=== PATIENT | female | born 1995 | race Hispanic/Latino ===

== ENCOUNTER 2019-04-07 09:59 | Emergency (ER) | payer OTHER ==
[~2019-04-07] VITALS: Ht 162.6 cm; Wt 76.2 kg
--- OUTSIDE RECORDS SUMMARY | 2019-04-07 10:01 | XMS REPORT ---
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 Allergies, Adverse Reactions, Alerts Allergy Name Allergy Type Status Severity Reaction(s) Onset Date Inactive Date Treating Clinician Comments No Known Allergies DA Active U 2019-01-30 00:00:00 No Known Allergies DA Active U 2017-07-15 00:00:00 Medications This patient has no known medications. Encounters Start Date/Time End Date/Time Encounter Type Admission Type Attending Clinicians Care Facility Care Department Encounter ID 2019-04-01 19:29:00 2019-04-01 19:29:00 Emergency E [facility] [id number] 2019-02-04 19:34:00 2019-02-04 19:34:00 Emergency E [facility] 7509 2019-02-01 18:30:00 2019-02-01 18:30:00 Emergency E [facility] 7508 2019-01-14 19:49:00 2019-01-14 19:49:00 Emergency E [facility] 7507 Results Test Description Test Time Test Comments Text Results Atomic Results Result Comments BASIC METABOLIC PANEL 2019-04-01 00:47:00 SODIUM (test code=NA) 141 mEq/L 134-147 POTASSIUM (test code=K) 3.9 mEq/L 3.4-5.0 CHLORIDE (test code=CL) 108 mEq/L 100-108 CARBON DIOXIDE (test code=CO2) 22 mEq/L 21-33 ANION GAP (test code=GAP) 15 0-20 GLUCOSE (test code=GLU) 110 mg/dL 70-110 BLOOD UREA NITROGEN (test code=BUN) 22 mg/dL 7-18 GLOMERULAR FILTRATION RATE (test code=GFR) 61.0 110-120 Units of measure=ml/min/1.73 m2 CREATININE (test code=CREAT) 1.1 mg/dL 0.6-1.3 CALCIUM (test code=CA) 9.3 mg/dL 8.0-10.5 BASIC METABOLIC [id number] 00:44:00* Test Item Value Reference Range Comments SODIUM (test code=NA) 141 mEq/L 134-147 POTASSIUM (test code=K) 3.9 mEq/L 3.4-5.0 CHLORIDE (test code=CL) 108 mEq/L 100-108 CARBON DIOXIDE (test code=CO2) 22 mEq/L 21-33 ANION GAP (test code=GAP) 15 0-20 GLUCOSE (test code=GLU) 110 mg/dL 70-110 BLOOD UREA NITROGEN (test code=BUN) 22 mg/dL 7-18 GLOMERULAR FILTRATION RATE (test code=GFR) 110-120 CREATININE (test code=CREAT) mg/dL 0.6-1.3 CALCIUM (test code=CA) 9.3 mg/dL 8.0-10.5 UA RFLX MICR CULT IF [id number] 00:42:00* Test Item Value Reference Range Comments UA COLOR (test code=COLU) YELLOW YEL/STRAW UA APPEARANCE (test code=APPU) SL CLOUDY CLEAR UA GLUCOSE DIPSTICK (test code=DGLUU) NEGATIVE NEGATIVE UA BILIRUBIN DIPSTICK (test code=BILU) NEGATIVE NEGATIVE UA KETONE DIPSTICK (test code=KETU) NEGATIVE NEGATIVE UA SPECIFIC GRAVITY (test code=SGU) 1.014 1.005-1.030 UA BLOOD DIPSTICK (test code=ANUEL) 3+ NEGATIVE UA PH DIPSTICK (test code=WOODROW) 7.0 5.0-7.0 UA PROTEIN DIPSTICK (test code=PROU) NEGATIVE NEGATIVE UA UROBILINIOGEN DIPSTICK (test code=URO) 0.2 mg/dL 0.2-1.0 UA NITRITE DIPSTICK (test code=MAG) NEGATIVE NEGATIVE UA LEUKOCYTE ESTERASE DIPSTICK (test code=LEUU) 3+ NEGATIVE UA WBC (test code=WBCU) 21-50 WBC/HPF 0-3 UA RBC (test code=RBCU) >50 RBC/HPF 0-3 UA WBC NO REFLEX (test code=WBCUCL) 21-50 WBC/HPF 0-3 UA BACTERIA (test code=BACU) 3+ /HPF NONE SEEN UA SQUAMOUS CELLS (test code=SQU) 11-25 /HPF NONE SEEN UA MUCUS (test code=MUCU) 1+ /LPF NONE SEEN Indication for culture: Flank PainSpecimen Description: CLEAN CATCHUR HCG [id number] 00:41:00* Test Item Value Reference Range Comments UR HCG QUAL (test code=HCGQLU) NEGATIVE NEGATIVE TROPONIN-I [id number] 00:38:00* Test Item Value Reference Range Comments TROPONIN-I RAPID (test code=TROPIRAP) 0.00 ng/mL 0.00-0.08 Performed by certified brim welt sewing machine operator at [facility] Negative: <=0.08 Positive: >=0.09An elevated troponin value alone is not sufficient todiagnose a myocardial infarction. Rather, the patient sclinical presentation (history, physical exam) and ECGshould be used in conjunction with troponin in thediagnostic evaluation of suspected myocardial infarction. Aserial sampling protocol is recommended to facilitate the identification of temporal changes in troponin levels characteristic of [place]. CBC W/AUTO [id number] 00:36:00* Test Item Value Reference Range Comments WHITE BLOOD CELL (test code=WBC) 7.95 x10 3/uL 4.5-11.0 RED BLOOD CELL (test code=RBC) 4.36 x10 6/uL 3.54-5.02 HEMOGLOBIN (test code=HGB) 13.7 g/dL 11.0-15.0 HEMATOCRIT (test code=HCT) 41.8 % 33.0-45.0 MEAN CELL VOLUME (test code=MCV) 95.9 fL 81.0-99.0 MEAN CELL HGB (test code=MCH) 31.4 pg 27.0-33.0 MEAN CELL HGB CONCETRATION (test code=MCHC) 32.8 g/dL 33.0-37.0 RED CELL DISTRIBUTION WIDTH CV (test code=RDW) 11.9 % 11.5-14.5 RED CELL DISTRIBUTION WIDTH SD (test code=RDW-SD) 41.4 fL 37.0-54.0 PLATELET COUNT (test code=PLT) 214 x10 3/uL 150-400 MEAN PLATELET VOLUME (test code=MPV) 12.2 fL 7.0-9.0 NEUTROPHIL % (test code=NT%) 62.5 % 56.0-77.0 IMMATURE GRANULOCYTE % (test code=IG%) 0.3 % 0.0-2.0 LYMPHOCYTE % (test code=LY%) 26.9 % 14.0-32.0 MONOCYTE % (test code=MO%) 9.1 % 4.8-9.0 EOSINOPHIL % (test code=EO%) 0.8 % 0.3-3.7 BASOPHIL % (test code=BA%) 0.4 % 0.0-2.0 NUCLEATED RBC % (test code=NRBC%) 0.0 % 0-0 NEUTROPHIL # (test code=NT#) 4.98 x10 3/uL 2.0-7.6 IMMATURE GRANULOCYTE # (test code=IG#) 0.02 x10 3/uL 0.00-0.03 LYMPHOCYTE # (test code=LY#) 2.14 x10 3/uL 1.0-3.8 MONOCYTE # (test code=MO#) 0.72 x10 3/uL 0.1-0.8 EOSINOPHIL # (test code=EO#) 0.06 x10 3/uL 0.0-0.2 BASOPHIL # (test code=BA#) 0.03 x10 3/uL 0.0-0.2 NUCLEATED RBC # (test code=NRBC#) 0.00 x10 3/uL 0.0-0.1 MANUAL DIFF REQUIRED (test code=MDIFF) NO - XR CHEST 1 [id number] 23:47:00 FAX: Germán Maddox DO [phone] [place]: St: [facility] FAX: Smooth Grant NP [phone] Name: CAROLINE SONG [facility] [place] : 1995 Age/S: 24/F [address] [place] [address] Bl Unit #: [id number] Loc: [place] [address] Phys: Smooth Grant NP Acct: [id number] Dis Date: Status: REG ER PHONE #: [phone] Exam Date: 03/31/2019 2337 FAX #: [phone] Reason: SOB, CP EXAMS: CPT CODE: [id number] XR CHEST 1 V 78973 FRONTAL CHEST, 03/31/2019 11:12 PM : HISTORY: SOB, CP. COMPARISON: 06/10/2018 FINDINGS: Heart size and vascularity are within normal limits. The lungs are clear of focal consolidation. No effusion, pneumothorax, or acute osseous abnormality. IMPRESSION: 1. No radiographic evidence of acute cardiopulmonary process. SL: VITO at 5693 Reported and signed by: Ralph Shah M.D. CC: Germán Arreguin DO; Smooth Grant NP Technologist: RT Estrella(Emily) Trnscrd Date/Time/By: 03/31/2019 (2907) : By: [email or web address] Orig Print D/T: S: 03/31/2019 (3851) PAGE 1 Signed Report - HEPA IMAG INCL GB W [id number] 13:25:00 FAX: Germán Maddox DO [phone] [place]: B St: REG Name: CAROLINE LANIER [facility] : [birth year] Age/S: 23/F [address] Unit #: [id number] Loc: [place] [address] Phys: Germán Arreguin DO Acct: [id number] Dis Date: Status: REG CLI PHONE #: [phone] Exam Date: 02/03/2019 1234 FAX #: [phone] Reason: R10.9 EXAMS: CPT CODE: [id number] HEPA IMAG INCL GB W PHA 24847 HISTORY: R 10.9. COM PARISON: January 30, 2019. HIDA scan: 4.5 mCi of technetium 99m: Tach and 1.8 mcg of CCK. Sequential images obtained. Homogen eous uptake within the liver. Excretion into the biliary system as well as into the gallbladder and small bowel. Ejection fraction calculated to 80% at 19 1/2 minutes. The normal should be greater than 35% IMPRESSION: Normal ejection fraction of 83% at 19 1/2 minutes. at 1322 Reported and signed by: Isiah Tian M.D. CC: Germán Arreguin DO Tech nologist: Veronique Holder RT(N) Trnscrd Date/Ti me/By: 02/03/2019 (4139) : By: [email or web address] Orig Print D/T: S: 02/03/2019 (3230) PAGE 1 Signed Report URINALYSIS [id number] 20:01:00* Test Item Value Reference Range Comments UA COLOR (test code=COLU) Light-Yellow YELLOW UA APPEARANCE (test code=APPU) CLEAR CLEAR UA GLUCOSE DIPSTICK (test code=DGLUU) NEGATIVE mg/dL NEGATIVE UA BILIRUBIN DIPSTICK (test code=BILU) NEGATIVE mg/dL NEGATIVE UA KETONE DIPSTICK (test code=KETU) NEGATIVE mg/dL NEGATIVE UA SPECIFIC GRAVITY (test code=SGU) 1.015 1.001-1.035 UA BLOOD DIPSTICK (test code=ANUEL) Negative mg/dL NEGATIVE UA PH DIPSTICK (test code=WOODROW) 8.0 5.0-8.0 UA PROTEIN DIPSTICK (test code=PROU) NEGATIVE mg/dL NEGATIVE UA UROBILINIOGEN DIPSTICK (test code=URO) Normal mg/dL NEGATIVE UA NITRITE DIPSTICK (test code=MAG) NEGATIVE NEGATIVE UA LEUKOCYTE ESTERASE W REFLEX (test code=LEUUR) NEGATIVE Radha/uL NEGATIVE UA WBC (test code=WBCU) 6-10 per HPF 0-5 UA RBC (test code=RBCU) 3-5 #/HPF 0-5 UA EPITHELIAL CELLS (test code=EPIU) FEW per HPF FEW UA BACTERIA (test code=BACU) FEW #/HPF NONE UA MUCUS (test code=MUCU) FEW #/LPF FEW Urine Source? Clean CatchURINALYSIS [id number] 19:57:00* Test Item Value Reference Range Comments UA COLOR (test code=COLU) Light-Yellow YELLOW UA APPEARANCE (test code=APPU) CLEAR CLEAR UA GLUCOSE DIPSTICK (test code=DGLUU) NEGATIVE mg/dL NEGATIVE UA BILIRUBIN DIPSTICK (test code=BILU) NEGATIVE mg/dL NEGATIVE UA KETONE DIPSTICK (test code=KETU) NEGATIVE mg/dL NEGATIVE UA SPECIFIC GRAVITY (test code=SGU) 1.015 1.001-1.035 UA BLOOD DIPSTICK (test code=ANUEL) Negative mg/dL NEGATIVE UA PH DIPSTICK (test code=WOODROW) 8.0 5.0-8.0 UA PROTEIN DIPSTICK (test code=PROU) NEGATIVE mg/dL NEGATIVE UA UROBILINIOGEN DIPSTICK (test code=URO) Normal mg/dL NEGATIVE UA NITRITE DIPSTICK (test code=MAG) NEGATIVE NEGATIVE UA LEUKOCYTE ESTERASE W REFLEX (test code=LEUUR) NEGATIVE Radha/uL NEGATIVE UA WBC (test code=WBCU) per HPF 0-5 UA RBC (test code=RBCU) per HPF 0-5 UA EPITHELIAL CELLS (test code=EPIU) per HPF Few UA BACTERIA (test code=BACU) per HPF NONE Urine Source? Clean Catch- CT ABD PELVIS W/O [id number] 18:06:00 Name: CAROLINE SONG [facility] : 1995 Age/S: 23 / F [address] Unit #: [id number] Loc: [place] [address] Phys: SalasEvan dane Opal [employer] Acct: [id number] Di s Date: Status: REG ER PHONE #: [phone] Exam Date: 01/30/20191732 FAX #: Reason: FLANK PAIN EXAMS: CPT CODE: [id number] CT ABD PELVIS W/O CONT 39578 HISTORY: Flank pain. COMPARISON: CT scan from November 30, 2018. CT abdomen and pe lvis: Stone protocol. Automated exposure control CT of abdomen: The lung bases are clear. The liver is diffusely fatty infiltrated. No discrete parenchymal mass or nodules. The liver measuring 21.2 cm in length. Gallbladder is without radiopaque stones. Unremarkable spleen. The stomach is distended incompletely and it is wit hin normal limits. Noncontrast pancreas and adrenals are normal. Kidneys are free from hydroureteronephrosis. Multiple bilateral calyceal stones measuring 3 to 4 mm, greater on the right. No p athologic adenopathy. No bowel obstruction or colitis or diverticu litis or enteritis is noted. CT PELVIS: Append ix is normal. Pelvic bowel loops are unobstructed. Unremarkable ur inary bladder. Patient is post hysterectomy. No free fluid or free air. No pelvic pathologic adenopathy. The subcutaneous tissues and the mu sculature are normal in appearance. No lytic or blastic lesions are noted within the bony skeleton. Bone islands. IMPRESSION: No acute intra-abdominal or intrapelvic pathology with bilateral nonobstructing innumerable calyceal stones measuring 3 to 4 mm, gre ater on the right. This pattern is unchanged. PAGE 1 Signed Report (CONTINUED) Name: CAROLINE SONG [facility] : 1995 Age/S: 23 / F [address] [facility] Unit #: [id number] Loc: [place] [address] Phys: SalasJohnathan SUPERVIS[employer] Acct: [id number] Dis Date: Status: REG ER PHONE #: [phone] Exam Date: 2018 FAX #: [phone] Reason: FLANK PAIN EXAMS: CPT CODE: [id number] CT ABD PELVIS W/O CONT 01157 <Continued> at 1806 Reported and signed by: Isiah Tian M.D. CC: Germán Arreguin DO; Johnathan Marina NP Technologist:Edith Shin RT(R),CT; CTDI: DLP: Trnscb Date/Time: 01/30/2019 (180) [email or web address] Orig Print D/T: S: 01/30/2019 (647) PAGE 2 Signed Report BASIC METABOLIC [id number] 17:11:00* Test Item Value Reference Range Comments SODIUM (test code=NA) 142 mmol/L 136-145 POTASSIUM (test code=K) 4.0 mmol/L 3.5-5.1 CHLORIDE (test code=CL) 111.0 mmol/L 98-107 CARBON DIOXIDE (test code=CO2) 23.0 mmol/L 21-32 ANION GAP (test code=GAP) 12.0 10-20 GLUCOSE (test code=GLU) 102 mg/dL 74-106 BLOOD UREA NITROGEN (test code=BUN) 9 mg/dL 7-18 GLOMERULAR FILTRATION RATE (test code=GFR) > 60 mL/min >=60 Estimated GFR by using Modified MDRD formula.Chronic kidney disease is defined as either kidney damageor GFR <60 mL/min/1.73 m2 for >3 months. CREATININE (test code=CREAT) 0.90 mg/dL 0.55-1.02 Note change in reference range due to change in reagent. BUN/CREATININE RATIO (test code=BUN/CREA) 10.4 10-20 CALCIUM (test code=CA) 9.6 mg/dL 8.5-10.1 HEPATIC FUNCTION [id number] 17:11:00* Test Item Value Reference Range Comments TOTAL PROTEIN (test code=PROT) 7.4 gram/dL 6.4-8.2 ALBUMIN (test code=ALB) 3.8 g/dL 3.4-5.0 GLOBULIN (test code=GLOB) 3.6 gram/dL 2.7-4.2 ALBUMIN/GLOBULIN RATIO (test code=A/G) 1.1 0.75-1.50 BILIRUBIN TOTAL (test code=BILT) 0.30 mg/dL 0.0-1.0 BILIRUBIN DIRECT (test code=BILD) 0.10 mg/dL 0.0-0.20 SGOT/AST (test code=AST) 42 IUnit/L 15-37 SGPT/ALT (test code=ALT) 121 IUnit/L 12-78 ALKALINE PHOSPHATASE TOTAL (test code=ALKP) 85 IUnit/L 45-117 Note change in reference range due to change in reagent. [id number] 17:11:00* Test Item Value Reference Range Comments LIPASE (test code=LIP) 70 U/L 73.0-393.0 HCG SERUM [id number] 17:11:00* Test Item Value Reference Range Comments HCG SERUM QUAL (test code=HCGQL) NEGATIVE NEGATIVE This HCGQL test is NOT applicable for MALE patients.Check with nurse about probable order error.If Tumor Marker Test needed, nurse should order test "HCGTU"(Test #550.78515) BASIC METABOLIC [id number] 17:06:00* Test Item Value Reference Range Comments SODIUM (test code=NA) 142 mmol/L 136-145 POTASSIUM (test code=K) 4.0 mmol/L 3.5-5.1 CHLORIDE (test code=CL) 111.0 mmol/L 98-107 CARBON DIOXIDE (test code=CO2) mmol/L 21-32 ANION GAP (test code=GAP) 10-20 GLUCOSE (test code=GLU) mg/dL 74-106 BLOOD UREA NITROGEN (test code=BUN) mg/dL 7-18 GLOMERULAR FILTRATION RATE (test code=GFR) mL/min >=60 CREATININE (test code=CREAT) mg/dL 0.55-1.02 BUN/CREATININE RATIO (test code=BUN/CREA) 10-20 CALCIUM (test code=CA) mg/dL 8.5-10.1 HEPATIC FUNCTION [id number] 17:06:00* Test Item Value Reference Range Comments TOTAL PROTEIN (test code=PROT) gram/dL 6.4-8.2 ALBUMIN (test code=ALB) g/dL 3.4-5.0 GLOBULIN (test code=GLOB) gram/dL 2.7-4.2 ALBUMIN/GLOBULIN RATIO (test code=A/G) 0.75-1.50 BILIRUBIN TOTAL (test code=BILT) mg/dL 0.0-1.0 BILIRUBIN DIRECT (test code=BILD) mg/dL 0.0-0.20 SGOT/AST (test code=AST) IUnit/L 15-37 SGPT/ALT (test code=ALT) IUnit/L 12-78 ALKALINE PHOSPHATASE TOTAL (test code=ALKP) IUnit/L 45-117 [id number] 17:06:00* Test Item Value Reference Range Comments LIPASE (test code=LIP) U/L 73.0-393.0 HCG SERUM [id number] 17:06:00* Test Item Value Reference Range Comments HCG SERUM QUAL (test code=HCGQL) NEGATIVE NEGATIVE This HCGQL test is NOT applicable for MALE patients.Check with nurse about probable order error.If Tumor Marker Test needed, nurse should order test "HCGTU"(Test #550.23996) BASIC METABOLIC [id number] 16:59:00* Test Item Value Reference Range Comments SODIUM (test code=NA) 142 mmol/L 136-145 POTASSIUM (test code=K) 4.0 mmol/L 3.5-5.1 CHLORIDE (test code=CL) 111.0 mmol/L 98-107 CARBON DIOXIDE (test code=CO2) mmol/L 21-32 ANION GAP (test code=GAP) 10-20 GLUCOSE (test code=GLU) mg/dL 74-106 BLOOD UREA NITROGEN (test code=BUN) mg/dL 7-18 GLOMERULAR FILTRATION RATE (test code=GFR) mL/min >=60 CREATININE (test code=CREAT) mg/dL 0.55-1.02 BUN/CREATININE RATIO (test code=BUN/CREA) 10-20 CALCIUM (test code=CA) mg/dL 8.5-10.1 HEPATIC FUNCTION [id number] 16:59:00* Test Item Value Reference Range Comments TOTAL PROTEIN (test code=PROT) gram/dL 6.4-8.2 ALBUMIN (test code=ALB) g/dL 3.4-5.0 GLOBULIN (test code=GLOB) gram/dL 2.7-4.2 ALBUMIN/GLOBULIN RATIO (test code=A/G) 0.75-1.50 BILIRUBIN TOTAL (test code=BILT) mg/dL 0.0-1.0 BILIRUBIN DIRECT (test code=BILD) mg/dL 0.0-0.20 SGOT/AST (test code=AST) IUnit/L 15-37 SGPT/ALT (test code=ALT) IUnit/L 12-78 ALKALINE PHOSPHATASE TOTAL (test code=ALKP) IUnit/L 45-117 [id number] 16:59:00* Test Item Value Reference Range Comments LIPASE (test code=LIP) U/L 73.0-393.0 HCG SERUM [id number] 16:59:00* Test Item Value Reference Range Comments HCG SERUM QUAL (test code=HCGQL) NEGATIVE CBC W/O [id number] 16:45:00* Test Item Value Reference Range Comments WHITE BLOOD CELL (test code=WBC) 6.2 K/mm3 4.5-12.5 RED BLOOD CELL (test code=RBC) 4.21 mill/mm3 3.7-5.2 HEMOGLOBIN (test code=HGB) 12.9 gram/dL 11.5-15.5 HEMATOCRIT (test code=HCT) 38.5 % 36.0-46.0 MEAN CELL VOLUME (test code=MCV) 91.4 fL 80-98 MEAN CELL HGB (test code=MCH) 30.6 picogram 27.0-33.0 MEAN CELL HGB CONCETRATION (test code=MCHC) 33.5 gram/dL 33.0-36.0 RED CELL DISTRIBUTION WIDTH (test code=RDW) 12.1 % 11.6-16.2 PLATELET COUNT (test code=PLT) 213 K/mm3 150-450 MEAN PLATELET VOLUME (test code=MPV) 11.0 fL 6.7-11.0 CBC W/O [id number] 16:44:00* Test Item Value Reference Range Comments WHITE BLOOD CELL (test code=WBC) K/mm3 4.5-12.5 RED BLOOD CELL (test code=RBC) mill/mm3 3.7-5.2 HEMOGLOBIN (test code=HGB) 12.9 gram/dL 11.5-15.5 HEMATOCRIT (test code=HCT) 38.5 % 36.0-46.0 MEAN CELL VOLUME (test code=MCV) fL 80-98 MEAN CELL HGB (test code=MCH) picogram 27.0-33.0 MEAN CELL HGB CONCETRATION (test code=MCHC) gram/dL 33.0-36.0 RED CELL DISTRIBUTION WIDTH (test code=RDW) % 11.6-16.2 PLATELET COUNT (test code=PLT) K/mm3 150-450 MEAN PLATELET VOLUME (test code=MPV) fL 6.7-11.0 - US ABDOMEN [id number] 01:05:00 Name: CAROLINE SONG [facility] : 1995 Age/S: 23 / F [address] [place] [address] Unit #: [id number] Loc: [facility] [place] [address] Phys: Shashi Norris MD Acct: [id number] Dis Date: Status: REG ER PHONE #: [phone] Exam Date: 01/03/2019 0026 FAX #: [phone] Reason: abdominal pain EXAMS: CPT CODE: [id number] US ABDOMEN COMPLETE 96643 PROCEDURE: ABDOMINAL ULTRASOUND DATED 01/03/2019 INDICATION: Acute generalized abdominal pain. COMPARISON: CT abdomen dated 11/30/2018 TECHNIQUE: Sonographic evaluation of the abdomen was performed with supplemental color and pulsed Doppler. FINDINGS: LIVER: The liver demonstrates increased parenchymal echotexture with diminished sound transmission, likely due to fatty infiltration. GALLBLADDER: The gallbladder is normally distended without evidence of gallstones. There is no evidence of gallbladder wall thickening or pericholecystic fluid to suggest acute inflammation. The sonographic Rosales's sign was reported as negative. BILE DUCTS: The common duct is normal in caliber measuring 4.5 mm. PANCREAS: The visualized portions of the pancreas appear sonographically normal SPLEEN: The spleen appears normal in size (11.4 cm) and echotexture. KIDNEYS: The right kidney measures 11.7 cm lo ngitudinally and the left kidney measures 11.3 cm. The kidneys maintain n ormal cortical thickness and normal cortical echotexture. There is no aixa dence of acute collecting system obstruction. Bilateral renal stones are noted. AORTA AND INFERIOR VENA CAVA: Flow is documented in the inf erior vena cava. The proximal abdominal aorta is normal in caliber. Additional comments: No free intraperitoneal fluid is identified. IMPRESSION: 1. No sonographic evidence of cholelithiasis or acute cholecystitis. 2. Fatty infiltration of the liver. 3. B ilateral nephrolithiasis. SL: 131 PAGE 1 Signed Report (CONTINUED) Name: Thai SONG [facility] : 1995 Age/ S: 23 / [address] [place] [address] Unit #: [id number] Loc: [place] [address] Phys: Shashi Norris MD Acct: [id number] Dis Date: Status: REG ER PHONE #: [phone] Exam Date: 01/03/201925 FAX #: [phone] Reason: abdominal pain EXAMS: CPT CODE: [id number] US ABDOMEN COMPLETE 57586 <Continued> at 0105 Reported and signed by: José Inman M.D. CC: Germán Arreguin DO; Shashi Norris MD Technologist: Maricel Blackmon RDMS(A) Trnscb Date/Time: 01/04/2019 (104) t.JAVED Orig Print D/T: S: 01/04/2019 (107) Probe: PAGE 2 Signed Report - DUP AO/IVC/IV/BPG [id number] 01:05:00 Name: CAROLINE SONG [facility] : 1995 Age/S: 23 / F [address] [place] [address] Unit #: [id number] Loc: [place] [address] Phys: Shashi Norris MD Acct: [id number] Dis Date: Status: REG ER PHONE #: [phone] Exam Date: 01/03/201925 FAX #: [phone] Reason: ABDOMINAL PAIN EXAMS: CPT CODE: [id number] DUP AO/IVC/IV/BPG LTD 36709 PROCEDURE: ABDOMINAL ULTRASOUND DATED 01/03/2019 INDICATION: Acute generalized abdominal pain. COMPARISON: CT abdomen dated 11/30/2018 TECHNIQUE: Sonographic evaluation of the abdomen was performed with supplemental color and pulsed Doppler. FINDINGS: LIVER: The liver demonstrates increased parenchymal echotexture with diminished sound transmission, likely due to fatty infiltration. GALLBLADDER: The gallbladder is normally distended without evidence of gallstones. There is no evidence of gallbladder wall thickening or pericholecystic fluid to suggest acute inflammation. The sonographic Rosales's sign was reported as negative. BILE DUCTS: The common duct is normal in caliber measuring 4.5 mm. PANCREAS: The visualized portions of the pancreas appear sonographically normal SPLEEN: The spleen appears normal in size (11.4 cm) and echotexture. KIDNEYS: The right kidney measures 11.7 cm lo ngitudinally and the left kidney measures 11.3 cm. The kidneys maintain n ormal cortical thickness and normal cortical echotexture. There is no aixa dence of acute collecting system obstruction. Bilateral renal stones are noted. AORTA AND INFERIOR VENA CAVA: Flow is documented in the inf erior vena cava. The proximal abdominal aorta is normal in caliber. Additional comments: No free intraperitoneal fluid is identified. IMPRESSION: 1. No sonographic evidence of cholelithiasis or acute cholecystitis. 2. Fatty infiltration of the liver. 3. B ilateral nephrolithiasis. SL: 131 PAGE 1 Signed Report (CONTINUED) Name: Thai SONG [facility] : 1995 Age/ S: 23 / F [address] [place] [address] Unit #: [id number] Loc: [place] [address] Phys: Shashi Norris MD Acct: [id number] Dis Date: Status: REG ER PHONE #: [phone] Exam Date: 01/03/2019 0026 FAX #: [phone] Reason: ABDOMINAL PAIN EXAMS: CPT CODE: [id number] [facility] AO/IVC/IV/BPG LTD 00391 <Continued> at 0105 Reported and signed by: José Inman M.D. : Germán Arreguin DO; Shashi Norris MD Technologist: Maricel Blackmon RDMS(Alanna) Trnorb Date/Time: 01/04/2019 (010) Marcio Orig Print D/T: S: 01/04/2019 (0108) Probe: PAGE 2 Signed Report URINALYSIS [id number] 23:05:00* Test Item Value Reference Range Comments UA COLOR (test code=COLU) LESLIE YEL/STRAW UA APPEARANCE (test code=APPU) CLOUDY CLEAR UA GLUCOSE DIPSTICK (test code=DGLUU) NEGATIVE NEGATIVE UA BILIRUBIN DIPSTICK (test code=BILU) NEGATIVE NEGATIVE UA KETONE DIPSTICK (test code=KETU) NEGATIVE NEGATIVE UA SPECIFIC GRAVITY (test code=SGU) 1.024 1.005-1.030 UA BLOOD DIPSTICK (test code=ANUEL) 3+ NEGATIVE UA PH DIPSTICK (test code=WOODROW) 5.0 5.0-7.0 UA PROTEIN DIPSTICK (test code=PROU) 2+ NEGATIVE UA UROBILINIOGEN DIPSTICK (test code=URO) 0.2 mg/dL 0.2-1.0 UA NITRITE DIPSTICK (test code=MAG) NEGATIVE NEGATIVE UA LEUKOCYTE ESTERASE DIPSTICK (test code=LEUU) 3+ NEGATIVE UA WBC (test code=WBCU) >50 WBC/HPF 0-3 UA RBC (test code=RBCU) >50 RBC/HPF 0-3 UA BACTERIA (test code=BACU) 3+ /HPF NONE SEEN UA SQUAMOUS CELLS (test code=SQU) 11-25 /HPF NONE SEEN UA MUCUS (test code=MUCU) TRACE /LPF NONE SEEN UR HCG [id number] 23:01:00* Test Item Value Reference Range Comments UR HCG QUAL (test code=HCGQLU) NEGATIVE NEGATIVE - XR FOOT 2 VIEWS [id number] 13:02:00 FAX: Germán Maddox DO [phone] [facility]: O St: REG Name: CAROLINE LANIER [facility] : [birth year] Age/S: 23/F Ines Mariee Unit #: [id number] Loc: [place] [address] Phys: Germán Arreguin DO Acct: [id number] Dis Date: Status: REG CLI PHONE #: [phone] Exam Date: 12/30/2018 1210 FAX #: [phone] Reason: M79.671 EXAMS: CPT CODE: [id number] XR FOOT 2 [place] [address] CLINICAL HISTORY: M79.671 TECHNIQUE: AP, oblique, and lateral views of the bilateral feet COMPARISON: None FINDINGS: No acute fracture or dislocation. Bony trabecular pattern is unremarkable. No cortical destruct ion or periosteal reaction. Joint spaces are preserved. Bilateral hallux valgus is present. Regional soft tissues are unremarkable. IMPRESSION: Bilateral hallux valgus. No acute bony abnormalities of the feet however. at 1302 Reported and signed by: Phillip Mckinnon MD CC: Germán Arreguin DO Technologist: AMOS Philippe) Trnscrd Date/Time/By: 12/30/2018 (5891) : By: [email or web address] Orig Print D/T: S: 12/30/2018 (5476) PAGE 1 Signed Report COMPREHENSIVE METABOLIC [id number] 22:19:00* Test Item Value Reference Range Comments SODIUM (test code=NA) 140 mEq/L 134-147 POTASSIUM (test code=K) 3.8 mEq/L 3.4-5.0 CHLORIDE (test code=CL) 107 mEq/L 100-108 CARBON DIOXIDE (test code=CO2) 27 mEq/L 21-33 ANION GAP (test code=GAP) 10 0-20 GLUCOSE (test code=GLU) 99 mg/dL 70-110 BLOOD UREA NITROGEN (test code=BUN) 14 mg/dL 7-18 GLOMERULAR FILTRATION RATE (test code=GFR) 88.9 110-120 Units of measure=ml/min/1.73 m2 CREATININE (test code=CREAT) 0.8 mg/dL 0.6-1.3 TOTAL PROTEIN (test code=PROT) 7.3 g/dL 6.4-8.2 ALBUMIN (test code=ALB) 3.60 g/dL 3.4-5.0 CALCIUM (test code=CA) 8.9 mg/dL 8.0-10.5 BILIRUBIN TOTAL (test code=BILT) 0.20 mg/dL 0.0-1.0 SGOT/AST (test code=AST) 49 IUnit/L 15-37 SGPT/ALT (test code=ALT) 110 IUnit/L 15-65 ALKALINE PHOSPHATASE TOTAL (test code=ALKP) 79 IUnit/L 20-125 [id number] 22:19:00* Test Item Value Reference Range Comments LIPASE (test code=LIP) 115 IUnit/L 73-393 HCG SERUM [id number] 22:19:00* Test Item Value Reference Range Comments HCG SERUM QUAL (test code=HCGQL) SERUM NEGATIVE NEGATIVE - CT ABD PELVIS W/O [id number] 21:58:00 Name: CAROLINE SONG [facility] : 1995 Age/S: 23 / F [address] [place] [address] Unit #: [id number] Loc: [place] [address] Phys: Brenden Rodriguez MD Acct: [id number] Dis Date: Status: REG ER PHONE #: [phone] Exam Date: 11/30/20182120 FAX #: [phone] Reason: right flank pain, right upper abdominal pain EXAMS: CPT CODE: [id number] CT ABD PELVIS W/O CONT 72906 CT ABDOMEN AND PELVIS WITHOUT CONTRAST INDICATION: right flank pain, right upper abdominal pain . TECHNIQUE: Unenhanced CT imaging of the abdomen and pelvis with axial, coronal and sagittal reconstructions. CT imaging performed at this location utilizes radiation dose optimization technique which includes one or more of the followin) Automated exposure control; 2) Adjustment of the mA and/or kV according to patient's size; 3) Use of iterative reconstruction techniques. DLP (mGy-cm): 657 COMPARISONS: CT abdomen and pelvis 09/20/2018 FINDINGS: There is no acute osseous fracture or dislocation. There is a small fat fille d, noninflamed umbilical hernia. There is no organized fluid collection or mass in the soft tissues. The aorta reveals no aneurysm or acute process. The inferior vena cava reveals no acute process. The lung bases reveal no acute process. There is moderate fatty in filtration of the liver and hepatomegaly measuring 21.6 cm craniocaudal le ngth. The gallbladder and bile ducts reveal no acute process. The pancreas reveals no acute process. The spleen reveals no acute process. The adrenal glands reveal no acute process or mass. There are 3 nonobstructing left renal calculi measuring up t o 4 mm. There are 7 nonobstructing right renal calculi measuring up to 8 mm. There is no hydronephrosis or obstructing ureteral calculus. The urinary bladder reveals no acute process. The uterus is absent. There is no intra-abdominal free fluid. There is no lymp hadenopathy. PAGE 1 Signed Report (CONTINUED) Name: CAROLINE SONG [facility] : 1995 Age/S: 23 / F [address] [place] [address] Blvd Unit #: [id number] Loc: [place] [address] Phys : Brenden Rodriguez MD Acct: [id number] Dis Date: Status: REG ER PHONE #: [phone] Exam Date: 11/30/20182120 FAX #: [phone] Reason: right flank pain, right upper abdominal pain EXAMS: CPT CODE: [id number] CT ABD PELVIS W/O CONT 96922 <Continued> There is no intra-abdominal free gas. There is nondistention and mild segmental mucosal thickening of the colon from the distal transverse segment to the rectum. There is no pericolonic fat stranding. The findings probably represent spasm but I cannot entirely exclude mild segm ental colitis. There is no bowel perforation or obstruction. There is no evidence of acute appendicitis. IMPRESSION: 1. There is stable hepatomegaly and moderate fatty infiltration of the liver. 2. There are bilateral nonobstructing renal calculi with no hydronephrosis or obstructing ureteral calculus. 3. There is nondistention and mild segmental mucosal thickening of the colon from t he distal transverse segment to the rectum. There is no pericolonic fat stranding. The findings probably represent spasm but I cannot entirely exclude mild segmental colitis. There is no bowel perforation or obstr uction. There is no evidence of acute appendicitis. 4. There is a stable small fat filled, noninflamed umbilical hernia. * * Electronically Signed by Kehinde Sullivan on 10/2018 at 2158 Reported and signed by: Lianne Sullivan D.O. CC: Germán Arreguin DO; Brenden Rodriguez MD Technologist:Rashmi Yoder RT(R)(CT) CTDI: DLP: T rnscb Date/Time: 11/30/2018 (2157) [id number] Orig Print D /T: S: 11/30/2018 (2200) PAGE 2 Signed Report COMPREHENSIVE METABOLIC [id number] 21:30:00* Test Item Value Reference Range Comments SODIUM (test code=NA) 140 mEq/L 134-147 POTASSIUM (test code=K) 3.8 mEq/L 3.4-5.0 CHLORIDE (test code=CL) 107 mEq/L 100-108 CARBON DIOXIDE (test code=CO2) 27 mEq/L 21-33 ANION GAP (test code=GAP) 10 0-20 GLUCOSE (test code=GLU) 99 mg/dL 70-110 BLOOD UREA NITROGEN (test code=BUN) 14 mg/dL 7-18 GLOMERULAR FILTRATION RATE (test code=GFR) 88.9 110-120 Units of measure=ml/min/1.73 m2 CREATININE (test code=CREAT) 0.8 mg/dL 0.6-1.3 TOTAL PROTEIN (test code=PROT) 7.3 g/dL 6.4-8.2 ALBUMIN (test code=ALB) 3.60 g/dL 3.4-5.0 CALCIUM (test code=CA) 8.9 mg/dL 8.0-10.5 BILIRUBIN TOTAL (test code=BILT) 0.20 mg/dL 0.0-1.0 SGOT/AST (test code=AST) 49 IUnit/L 15-37 SGPT/ALT (test code=ALT) 110 IUnit/L 15-65 ALKALINE PHOSPHATASE TOTAL (test code=ALKP) 79 IUnit/L 20-125 [id number] 21:30:00* Test Item Value Reference Range Comments LIPASE (test code=LIP) 115 IUnit/L 73-393 HCG SERUM [id number] 21:30:00* Test Item Value Reference Range Comments HCG SERUM QUAL (test code=HCGQL) NEGATIVE LACTIC [id number] 21:29:00* Test Item Value Reference Range Comments LACTIC ACID (test code=LACT) 1.7 mmol/L 0.4-1.9 COMPREHENSIVE METABOLIC [id number] 21:28:00* Test Item Value Reference Range Comments SODIUM (test code=NA) 140 mEq/L 134-147 POTASSIUM (test code=K) 3.8 mEq/L 3.4-5.0 CHLORIDE (test code=CL) 107 mEq/L 100-108 CARBON DIOXIDE (test code=CO2) 27 mEq/L 21-33 ANION GAP (test code=GAP) 10 0-20 GLUCOSE (test code=GLU) 99 mg/dL 70-110 BLOOD UREA NITROGEN (test code=BUN) 14 mg/dL 7-18 GLOMERULAR FILTRATION RATE (test code=GFR) 88.9 110-120 Units of measure=ml/min/1.73 m2 CREATININE (test code=CREAT) 0.8 mg/dL 0.6-1.3 TOTAL PROTEIN (test code=PROT) g/dL 6.4-8.2 ALBUMIN (test code=ALB) 3.60 g/dL 3.4-5.0 CALCIUM (test code=CA) 8.9 mg/dL 8.0-10.5 BILIRUBIN TOTAL (test code=BILT) mg/dL 0.0-1.0 SGOT/AST (test code=AST) 49 IUnit/L 15-37 SGPT/ALT (test code=ALT) 110 IUnit/L 15-65 ALKALINE PHOSPHATASE TOTAL (test code=ALKP) IUnit/L 20-125 [id number] 21:28:00* Test Item Value Reference Range Comments LIPASE (test code=LIP) 115 IUnit/L 73-393 HCG SERUM [id number] 21:28:00* Test Item Value Reference Range Comments HCG SERUM QUAL (test code=HCGQL) NEGATIVE - US ABDOMEN [id number] 21:27:00 Name: CAROLINE SONG [facility] : 1995 Age/S: 23 / F [address] [place] [address] Unit #: [id number] Loc: [place] [address] Phys: Brenden Rodriguez MD Acct: [id number] Dis Date: Status: REG ER PHONE #: [phone] Exam Date: 11/30/20182121 FAX #: [phone] Reason: Abdominal Pain EXAMS: CPT CODE: [id number] ABDOMEN LTD 43606 PROCEDURE: RUQ U/S CLINICAL INDICATION: Nausea, vomiting, diarrhea COMPARISON: CT abdomen dated 09/20/18 TECHNIQUE: Sonographic imaging is obtained of the right upper quadrant of the abdomen FINDINGS: LIVER: There is normal liver contour, size, and morphology with increased parenchymal echotexture. BILE DUCTS: The intrahepatic and extrahepatic bile ducts are not dilated with the common bile duct measuring 3 mm. GALLBLADDER: There is no gallstone, gallbladder sludge, pericholecystic fluid, or wall thickening. PANCREAS: The visualized pancreas appears unremarkable. KIDNEY: The right kidney measures 10.4 cm in length. There is normal renal contour and morphology, with normal parenchymal echotexture. There is no hydronephrosis. AORTA AND INFERIOR VENA CAVA: Visualized portions are unremarkable. ASCITES: There is no ascites. IMPRESSION: 1. Hepatic steatosis. 2. Normal sonographic appearance of the gallbladder. SL:01 at 2127 Reported and signed by: Johnathan Mccauley M.D. CC: Germán Arreguin DO; S henrik Rodriguez MD Technologist: Cele Peña RDMS(A)(OB) Trnscb Date/Time: 11/30/2018 (2126) [email or web address] Orig Print D/T: S: 11/30/2018 (2129) Probe: PAGE 1 Signed Report PROTHROMBIN [id number] 21:21:00* Test Item Value Reference Range Comments PROTHROMBIN TIME PATIENT (test code=PTP) 12.0 SECONDS 9.3-12.9 INTERNATIONAL NORMAL RATIO (test code=INR) 1.1 0.8-1.2 TARGET INR BY INDICATION Indication INR1. Prophylaxis of venous thrombosis 2.0 - 3.0 (orthopedic surgery), Prophylaxis of venous thrombosis (other than high-risk surgery), Treatment of Deep Vein Thrombosis/Pulmonary Embolism, Prevention of systemic embolism - Tissue heart valves, Acute Myocardial Infarction (to prevent systemic embolism), Valvular heart disease, Atrial Fibrillation, Bileaflet mechanical valve in aortic position.2. Mechanical prosthetic valves (high risk), 2.5 - 3.5 Presence of Lupus Anticoagulant or Antiphospholipid Antibodies, Prevention of systemic embolism - Acute Myocardial Infarction (to prevent recurrent infarct). THROMBOPLASTIN TIME [id number] 21:21:00* Test Item Value Reference Range Comments THROMBOPLASTIN TIME PARTIAL (test code=PTT) 34.9 Seconds 25.0-39.5 Therapeutic Range: 50.4 - 88.3 Seconds Effective 09/10/2018 URINALYSIS [id number] 21:20:00* Test Item Value Reference Range Comments UA COLOR (test code=COLU) YELLOW YEL/STRAW UA APPEARANCE (test code=APPU) CLEAR CLEAR UA GLUCOSE DIPSTICK (test code=DGLUU) NEGATIVE NEGATIVE UA BILIRUBIN DIPSTICK (test code=BILU) NEGATIVE NEGATIVE UA KETONE DIPSTICK (test code=KETU) NEGATIVE NEGATIVE UA SPECIFIC GRAVITY (test code=SGU) 1.014 1.005-1.030 UA BLOOD DIPSTICK (test code=ANUEL) NEGATIVE NEGATIVE UA PH DIPSTICK (test code=WOODROW) 7.0 5.0-7.0 UA PROTEIN DIPSTICK (test code=PROU) NEGATIVE NEGATIVE UA UROBILINIOGEN DIPSTICK (test code=URO) 0.2 mg/dL 0.2-1.0 UA NITRITE DIPSTICK (test code=MAG) NEGATIVE NEGATIVE UA LEUKOCYTE ESTERASE DIPSTICK (test code=LEUU) NEGATIVE NEGATIVE UA WBC (test code=WBCU) 0-3 WBC/HPF 0-3 UA RBC (test code=RBCU) 4-10 RBC/HPF 0-3 UA BACTERIA (test code=BACU) NONE SEEN /HPF NONE SEEN UA SQUAMOUS CELLS (test code=SQU) 0-5 /HPF NONE SEEN UA MUCUS (test code=MUCU) TRACE /LPF NONE SEEN COMMENTS: Clean CatchCBC W/AUTO [id number] 21:06:00* Test Item Value Reference Range Comments WHITE BLOOD CELL (test code=WBC) 6.41 x10 3/uL 4.5-11.0 RED BLOOD CELL (test code=RBC) 4.34 x10 6/uL 3.54-5.02 HEMOGLOBIN (test code=HGB) 13.6 g/dL 11.0-15.0 HEMATOCRIT (test code=HCT) 39.8 % 33.0-45.0 MEAN CELL VOLUME (test code=MCV) 91.7 fL 81.0-99.0 MEAN CELL HGB (test code=MCH) 31.3 pg 27.0-33.0 MEAN CELL HGB CONCETRATION (test code=MCHC) 34.2 g/dL 33.0-37.0 RED CELL DISTRIBUTION WIDTH CV (test code=RDW) 11.9 % 11.5-14.5 RED CELL DISTRIBUTION WIDTH SD (test code=RDW-SD) 39.6 fL 37.0-54.0 PLATELET COUNT (test code=PLT) 234 x10 3/uL 150-400 MEAN PLATELET VOLUME (test code=MPV) 10.8 fL 7.0-9.0 NEUTROPHIL % (test code=NT%) 61.2 % 56.0-77.0 IMMATURE GRANULOCYTE % (test code=IG%) 0.2 % 0.0-2.0 LYMPHOCYTE % (test code=LY%) 29.2 % 14.0-32.0 MONOCYTE % (test code=MO%) 8.0 % 4.8-9.0 EOSINOPHIL % (test code=EO%) 0.9 % 0.3-3.7 BASOPHIL % (test code=BA%) 0.5 % 0.0-2.0 NUCLEATED RBC % (test code=NRBC%) 0.0 % 0-0 NEUTROPHIL # (test code=NT#) 3.93 x10 3/uL 2.0-7.6 IMMATURE GRANULOCYTE # (test code=IG#) 0.01 x10 3/uL 0.00-0.03 LYMPHOCYTE # (test code=LY#) 1.87 x10 3/uL 1.0-3.8 MONOCYTE # (test code=MO#) 0.51 x10 3/uL 0.1-0.8 EOSINOPHIL # (test code=EO#) 0.06 x10 3/uL 0.0-0.2 BASOPHIL # (test code=BA#) 0.03 x10 3/uL 0.0-0.2 NUCLEATED RBC # (test code=NRBC#) 0.00 x10 3/uL 0.0-0.1 MANUAL DIFF REQUIRED (test code=MDIFF) NO - CT ABD PELVIS W/O [id number] 00:02:00 Name: CAROLINE SONG [facility] : 1995 Age/S: 23 / F [address] [place] [address] Blvd Unit #: [id number] Loc: [place] [address] Phys: Smooth Grant [employer] Acct: [id number] Dis Date: Status: REG ER PHONE #: [phone] Exam Date: 09/20/2018 2326 FAX #: [phone] Reason: Flank pain, hematuria, dysuria, hx of staghorn EXAMS: CPT CODE: [id number] CT ABD PELVIS W/O CONT 02655 EXAM: CT, CT ABDOMEN PELVIS W/O CONTRAST: 2326 hours Clinical Indication: Pain with urination. Hematuria. Dysuria. History of staghorn calculus.. Bilateral flank pain. Comparison: 09/08/2016. TECHNIQUE: Noncontrast helical imaging was performed without IV contrast from diaphragm to the symphysis pubis regions. Multiplanar coronal and sagittal reformations are obtained. CT imaging was performed with exposure control parameters to reduce radiation dose. Oral contrast: None. CT Radiation Dose: CEM=611.30 mGy-cm FINDINGS: This examination is limited for the evaluation of solid organs and vascular structures due to withheld intravenous contrast. LOWER CHEST: The visualized lung bases are clear. NON-CONTRAST ENHANCED SOLID ORGANS: LIVER: Hepatic steatosis. Focal fatty sparing around the gallbladder fossa. GALLBLADDER: Unremarkable. INTRAHEPATIC BILE DUCT AND EXTRAHEPATIC BILE DUCT: Unremarkable. PANCREAS: Unremarkable. SPLEEN: Unremarkable. ADRENALS: Unremarkable. KIDNEYS: Multiple right renal stones are noted largest measuring up to 4.5 cm. Multiple stones in the lower pole of the left kidney noted largest measuring up to 3 mm. There is no renal hydronephrosis. There is no abnormal ureter dilation. Ureters like ly junctions are unremarkable.. NON-CONTRAST OPACIFI ED STOMACH AND BOWEL: STOMACH: Unremarkable. BOWEL: The non-contrast opacified small bowel loops in the abdomen and pelvis appear unremarkable. The noncontrast opacified colonic loops in the abdomen and pelvis appear unremarkable. APPENDIX: Not well seen on the exam. PAGE 1 Signed Report (CONTINUED) Name: CAROLINE SONG [facility] [place] : 1995 Age/S: 23 / F [address] [place] [address] Blvd Unit #: [id number] Loc: [place] [address] Phys: Smooth Grant NP Acct: [id number] Dis Date: Status: REG ER PHONE #: [phone] Exam D ate: 09/20/20182325 FAX #: [phone] Reason: Flank pain, hematuria, dysuria, hx of staghorn EXAMS: CPT CODE: [id number] CT ABD PELVIS W/O CONT 34933 <Continued> The lack of orally administered contrast material limits bowel assessment. PERITONEUM AND RETROPERITONEUM: No ascites or free air. No other fluid collection. There is no aortic aneurysm seen. LYMPH NODES: Unremarkable. PELVIS: No pelvic mass or adenopathy. Possible hysterectomy to be correlated clinically. Ovaries are not well seen. BLADDER: Mildly thickened urinary bladder wall, probably due to nondistention.. OSSEOUS STRUCTURES: No acute abnormality seen. SOFT TISSUES: Unremarkable. IMPRESSION: 1. Nonobstructing bilateral renal stones. No hydronephrosis seen. 2. Mildly thickened urinary bladder wall, probably due to nondistention. Please correlate with labs to exclude cystitis. 3. Hepatic steatosis 4. Small fat-containing umbilical hernia. SL: LATIA-H at 0002 Reported and signed by: Ryan White M.D. CC: Germán Arreguin DO; Smooth Grant NP Technologist:RT Eligio(R)(CT) CTDI: DLP: Trnscb Date/Time: 09/21/2018 (0002) [id number] Orig Print D/T: S: 09/21/2018 (0006) CTDI: DLP: PAGE 2 Signed Report BASIC METABOLIC [id number] 21:31:00* Test Item Value Reference Range Comments SODIUM (test code=NA) 141 mEq/L 134-147 POTASSIUM (test code=K) 3.8 mEq/L 3.4-5.0 CHLORIDE (test code=CL) 107 mEq/L 100-108 CARBON DIOXIDE (test code=CO2) 29 mEq/L 21-33 ANION GAP (test code=GAP) 9 0-20 GLUCOSE (test code=GLU) 98 mg/dL 70-110 BLOOD UREA NITROGEN (test code=BUN) 15 mg/dL 7-18 GLOMERULAR FILTRATION RATE (test code=GFR) 77.6 110-120 Units of measure=ml/min/1.73 m2 CREATININE (test code=CREAT) 0.9 mg/dL 0.6-1.3 CALCIUM (test code=CA) 9.0 mg/dL 8.0-10.5 HEPATIC FUNCTION [id number] 21:31:00* Test Item Value Reference Range Comments TOTAL PROTEIN (test code=PROT) 7.8 g/dL 6.4-8.2 ALBUMIN (test code=ALB) 4.00 g/dL 3.4-5.0 BILIRUBIN TOTAL (test code=BILT) 0.20 mg/dL 0.0-1.0 BILIRUBIN DIRECT (test code=BILD) < 0.10 MG/DL 0.0-0.30 BILIRUBIN INDIRECT (test code=BILIND) 0.10 MG/DL SGOT/AST (test code=AST) 21 IUnit/L 15-37 SGPT/ALT (test code=ALT) 51 IUnit/L 15-65 ALKALINE PHOSPHATASE TOTAL (test code=ALKP) 83 IUnit/L 20-125 [id number] 21:31:00* Test Item Value Reference Range Comments LIPASE (test code=LIP) 261 IUnit/L 73-393 BASIC METABOLIC [id number] 21:26:00* Test Item Value Reference Range Comments SODIUM (test code=NA) 141 mEq/L 134-147 POTASSIUM (test code=K) 3.8 mEq/L 3.4-5.0 CHLORIDE (test code=CL) 107 mEq/L 100-108 CARBON DIOXIDE (test code=CO2) 29 mEq/L 21-33 ANION GAP (test code=GAP) 9 0-20 GLUCOSE (test code=GLU) 98 mg/dL 70-110 BLOOD UREA NITROGEN (test code=BUN) 15 mg/dL 7-18 GLOMERULAR FILTRATION RATE (test code=GFR) 77.6 110-120 Units of measure=ml/min/1.73 m2 CREATININE (test code=CREAT) 0.9 mg/dL 0.6-1.3 CALCIUM (test code=CA) 9.0 mg/dL 8.0-10.5 HEPATIC FUNCTION [id number] 21:26:00* Test Item Value Reference Range Comments TOTAL PROTEIN (test code=PROT) g/dL 6.4-8.2 ALBUMIN (test code=ALB) 4.00 g/dL 3.4-5.0 BILIRUBIN TOTAL (test code=BILT) mg/dL 0.0-1.0 BILIRUBIN DIRECT (test code=BILD) < 0.10 MG/DL 0.0-0.30 SGOT/AST (test code=AST) 21 IUnit/L 15-37 SGPT/ALT (test code=ALT) 51 IUnit/L 15-65 ALKALINE PHOSPHATASE TOTAL (test code=ALKP) IUnit/L 20-125 [id number] 21:26:00* Test Item Value Reference Range Comments LIPASE (test code=LIP) 261 IUnit/L 73-393 URINALYSIS [id number] 21:19:00* Test Item Value Reference Range Comments UA COLOR (test code=COLU) YELLOW YEL/STRAW UA APPEARANCE (test code=APPU) CLEAR CLEAR UA GLUCOSE DIPSTICK (test code=DGLUU) NEGATIVE NEGATIVE UA BILIRUBIN DIPSTICK (test code=BILU) NEGATIVE NEGATIVE UA KETONE DIPSTICK (test code=KETU) NEGATIVE NEGATIVE UA SPECIFIC GRAVITY (test code=SGU) 1.018 1.005-1.030 UA BLOOD DIPSTICK (test code=ANUEL) 2+ NEGATIVE UA PH DIPSTICK (test code=WOODROW) 6.0 5.0-7.0 UA PROTEIN DIPSTICK (test code=PROU) NEGATIVE NEGATIVE UA UROBILINIOGEN DIPSTICK (test code=URO) 0.2 mg/dL 0.2-1.0 UA NITRITE DIPSTICK (test code=MAG) NEGATIVE NEGATIVE UA LEUKOCYTE ESTERASE DIPSTICK (test code=LEUU) NEGATIVE NEGATIVE UA WBC (test code=WBCU) 0-3 WBC/HPF 0-3 UA RBC (test code=RBCU) >50 RBC/HPF 0-3 UA BACTERIA (test code=BACU) TRACE /HPF NONE SEEN UA SQUAMOUS CELLS (test code=SQU) 0-5 /HPF NONE SEEN UA HYALINE CAST (test code=HYALU) 0-2 /LPF NONE SEEN UA MUCUS (test code=MUCU) 1+ /LPF NONE SEEN UR HCG [id number] 21:16:00* Test Item Value Reference Range Comments UR HCG QUAL (test code=HCGQLU) NEGATIVE NEGATIVE CBC W/AUTO [id number] 21:14:00* Test Item Value Reference Range Comments WHITE BLOOD CELL (test code=WBC) 8.11 x10 3/uL 4.5-11.0 RED BLOOD CELL (test code=RBC) 4.59 x10 6/uL 3.54-5.02 HEMOGLOBIN (test code=HGB) 14.1 g/dL 11.0-15.0 HEMATOCRIT (test code=HCT) 41.7 % 33.0-45.0 MEAN CELL VOLUME (test code=MCV) 90.8 fL 81.0-99.0 MEAN CELL HGB (test code=MCH) 30.7 pg 27.0-33.0 MEAN CELL HGB CONCETRATION (test code=MCHC) 33.8 g/dL 33.0-37.0 RED CELL DISTRIBUTION WIDTH CV (test code=RDW) 11.9 % 11.5-14.5 RED CELL DISTRIBUTION WIDTH SD (test code=RDW-SD) 39.6 fL 37.0-54.0 PLATELET COUNT (test code=PLT) 321 x10 3/uL 150-400 MEAN PLATELET VOLUME (test code=MPV) 10.5 fL 7.0-9.0 NEUTROPHIL % (test code=NT%) 57.7 % 56.0-77.0 IMMATURE GRANULOCYTE % (test code=IG%) 0.2 % 0.0-2.0 LYMPHOCYTE % (test code=LY%) 32.2 % 14.0-32.0 MONOCYTE % (test code=MO%) 7.9 % 4.8-9.0 EOSINOPHIL % (test code=EO%) 1.4 % 0.3-3.7 BASOPHIL % (test code=BA%) 0.6 % 0.0-2.0 NUCLEATED RBC % (test code=NRBC%) 0.0 % 0-0 NEUTROPHIL # (test code=NT#) 4.68 x10 3/uL 2.0-7.6 IMMATURE GRANULOCYTE # (test code=IG#) 0.02 x10 3/uL 0.00-0.03 LYMPHOCYTE # (test code=LY#) 2.61 x10 3/uL 1.0-3.8 MONOCYTE # (test code=MO#) 0.64 x10 3/uL 0.1-0.8 EOSINOPHIL # (test code=EO#) 0.11 x10 3/uL 0.0-0.2 BASOPHIL # (test code=BA#) 0.05 x10 3/uL 0.0-0.2 NUCLEATED RBC # (test code=NRBC#) 0.00 x10 3/uL 0.0-0.1 MANUAL DIFF REQUIRED (test code=MDIFF) NO [id number] 14:29:00 RUN DATE: 03/07/18 [facility] PAGE 1 RUN TIME: 1429 Specimen Inqui ry RUN USER: INTERFACE PATIENT: CAROLINE SONG ACCT #: [id number] LOC: NevaehPPU U #: [id number] AGE/SX: 22/F ROOM: 2034 RE03/04/18REG DR: Diego Griggs MD : 95 BED: A DIS: 03/05/18 STATUS: DIS Michael TLOC: SPEC #: [id number] RECD: 03/04/18 STATUS: MONIQUE ASHLEY #: [id number] KAM: 03/04/[address]: Diego Griggs MD ENTERED: 03/04/18 SP TYPE: UTERUS OTHR DR: Germán Munoz od, DO ORDERED: GROSS COPIES TO: Diego Griggs MD [address] [place] [address] Germán Arreguin DO [address] [place] [address] MARKERS: ABNORMAL TISSUE, UTER US PROCEDURES: GROSS (03/07/18-1352) TISSUES: UTERUS, NOS - CERVIX, LE FT FALLOPIAN TUBE AND OVARY CLINICAL HISTORY COLLECTION DATE: 03/04/18 Recurrent painful ovarian cyst, chronic pelvic pain FINAL DIAGNOS IS Uterus, cervix, left fallopian tube and ovary, laparoscopic assisted vagin al hysterectomy and left salpingo-oophorectomy: MILD CHRONIC INFLAMMATI ON, ECTO-ENDOCERVICAL JUNCTION INACTIVE APPEARING ENDOMETRIUM IUD WITHIN ENDOMETRIAL CAVITY UNREMARKABLE MYOMETRIUM AND UTERINE SEROSA OVARY WITH MULTIPLE FOLLICULAR CYSTS INCLUDING A 4.7 CM FOLLICULAR CYST FALLOPIAN TUBE WITH HYDATID OF MORGAGNI CYSTS MEASURING UP TO 1.2 CM NE GATIVE FOR DYSPLASIA, HYPERPLASIA, AND MALIGNANCY DMW/sm A [id number] CONTINUED ON NEXT PAGE RUN DATE: 03/07/18 [facility] P AGE 2 RUN TIME: 1429 Specimen Inquiry RUN USER: INTERFACE SPEC #: [id number] PATIENT: CAROLINE SONG #[id number] (Continued) MACROSCOPIC The specimen is received in formalin, labeled with the patient's name and identified as "ut erus, cervix left fallopian tube and ovary". It consists of a symmetrically s haped uterus with attached left fallopian tube and ovary. The right fallopian tube and ovary are absent. The uterus measures 10.0 cm from the top of the fu ndus to the cervix, 6.5 cm from right to left and up to 5.0 cm in A-P diameter . The left fallopian tube segment is fimbriated, red-purple and measures 5.5 cm in length with diameter up to 0.6 cm. Pedunculated cysts are present near the fimbriated end. The cysts measure up to 1.2 cm in diameter. The left ovary is partially cystic, son-moreland and measures 5.5 by 4.0 by 3.8 cm. After removi ng the left fallopian tube and ovary the uterus weighs 120.8 grams. The se gisella surface is son-moreland and smooth. The cervical mucosa is moreland and smooth. The os is parous appearing. No lesions are present within the endocervical ca nal. A white plastic intrauterine device is present within the endometrial ca vity. The IUD is present within the endometrial lining near the left cornu. The IUD measures 3.2 cm in length by up to 3.2 cm in diameter and has a thickn ess that varies from 0.1 up to 0.3 cm. A string is attached to the end of the IUD measuring 7.5 cm in length. The endometrial lining is pink-red and measu res up to 0.3 cm in thickness. The myometrium is moreland-pink, homogenous and dodie sures up to 1.8 cm in thickness. No discrete nodules or masses are identified within the myometrium. Other than the paratubal cyst, no focal lesions are p resent in the fallopian tube. Sectioning through the ovary shows a unilocular cystic space measuring 4.7 cm in greatest diameter. The inner lining is smooth with a few small cystic spaces present beneath the lining. No discrete nodu les or papillations are seen on the cyst lining. Section Code: 1A-1B- an terior and posterior cervix; 1C-1D- anterior and posterior endomyometrium; 1E- fimbriated and nonfimbriated fallopian tube with cyst; 1F-1G- sections of ova isael cyst with smaller cystic spaces beneath intact lining. GROSS PERFOR MED AT [facility] [address] [place] [id number] [phone] MICROSCOPIC MICROSCOPIC PERFORMED AT [facility] All of the stains, including any controls performed, stain appropriately. [facility] [address] [facility] [place] [address] CONTINUED ON NEXT PAGE ----- -------RUN DATE: 03/07/18 [place] [employer] [facility] PAGE 3 RUN TIME: 1429 Specimen Inquiry RUN USER: INTERFACE SPEC #: [id number] PATIENT: CAROLINE SONG #[id number] (Continued) MICROSCOPIC (Continued) (P)[phone] PERFORMING SITE Diagnosis perfor med at: [facility] [address] [facility] [place] Cast[place] [id number] Signed SIGNATURE ON FILE Nasima Penny 03/07/18 1429 END OF REPORT
[2019-04-07] MEDS ORDERED: SODIUM CHLORIDE 0.9% 1000ML 1,000 ML IV STA (11:16)
[2019-04-07] MEDS ORDERED: ONDANSETRON HCL INJ 2MG/ML 2ML 2 MG/ML VIAL IV ONE ×2 (11:45→13:30)
[2019-04-07 12:44] LABS: BASOPHILS % 0.7 % (0.0-1.0); EOSINOPHILS # (AUTO) 0.1 (0.0-0.4); EOSINOPHILS % 1.4 % (0.0-6.0); HEMATOCRIT 41.5 % (34.2-44.1); HEMOGLOBIN 13.8 g/dL (12.0-16.0); LYMPHOCYTES # (AUTO) 1.6 (1.0-3.2); LYMPHOCYTES % 35.8 % (18.0-39.1); MEAN CORPUSCULAR HEMOGLOBIN 31.2 pg (28-32); MEAN CORPUSCULAR HGB CONC 33.3 g/dL (31-35); MEAN CORPUSCULAR VOLUME 93.9 fL (81-99); MONOCYTES # (AUTO) 0.4 (0.2-0.8); MONOCYTES % 9.4 % (4.4-11.3); NEUTROPHILS # (AUTO) 2.3 (2.1-6.9); NEUTROPHILS % 52.5 % (38.7-80.0); PLATELET COUNT 211 x10e3/uL (140-360); RED BLOOD COUNT 4.42 x10e6/uL (3.6-5.1); RED CELL DISTRIBUTION WIDTH 11.7 % (11.7-14.4)
[2019-04-07] MEDS ORDERED: MORPHINE SULFATE 2 MG/ML SYR 1ML IV ONE ×3 (13:00→15:46)
[2019-04-07 13:02] LABS: ALANINE AMINOTRANSFERASE 93 IU/L (0-55); ALBUMIN 4.1 g/dL (3.5-5.0); ALBUMIN/GLOBULIN RATIO 1.2 (0.8-2.0); ALKALINE PHOSPHATASE 79 IU/L (40-150); BLOOD UREA NITROGEN 18 mg/dL (7-26); BUN/CREATININE RATIO 23 (6-25); CALCIUM 9.7 mg/dL (8.4-10.2); CARBON DIOXIDE 26 mmol/L (22-29); CHLORIDE 104 mmol/L (98-107); CREATININE, SERUM 0.79 mg/dL (0.57-1.11); EST GLOMERULAR FILTRATION RATE > 60 ML/MIN (60-); GLUCOSE 82 mg/dL (74-118); LIPASE 27 U/L (8-78); SODIUM 140 mmol/L (136-145)
[2019-04-07 13:25] LABS: THYROID STIMULATING HORMONE 0.646 uIU/mL (0.350-4.940)
[2019-04-07 13:28] LABS: BILIRUBIN,URINE NEGATIVE (NEGATIVE); CLARITY,URINE CLOUDY (CLEAR); COLOR,URINE YELLOW (YELLOW); KETONES,URINE NEGATIVE (NEGATIVE); LEUKOCYTE ESTERASE ,URINE SMALL (NEGATIVE); NITRITE,URINE NEGATIVE (NEGATIVE); PROTEIN,URINE DIPSTICK NEGATIVE (NEGATIVE); URINE UROBILINOGEN 0.2 mg/dL (0.2 - 1)
[2019-04-07 13:33] LABS: PREGNANCY TEST, URINE NEGATIVE (NEGATIVE)
[2019-04-07 13:41] LABS: BACTERIA,URINE FEW /HPF; EPITHELIAL CELLS,URINE FEW /LPF; RBC,URINE 21-50 /HPF (0-5)
[2019-04-07] MEDS ORDERED: CEFTRIAXONE SOD 1 GM/NS 50 ML 50 ML IV ONE (14:15)
--- NOTE | 2019-04-07 14:53 | Diagnostic Imaging Report ---
Chest, 1 view, 04/07/2019. History: Upper abdominal pain. Comparison: None available. Findings: The cardiomediastinal silhouette and pulmonary vasculature are within normal limits for a portable exam. There is no focal consolidation or pleural effusion. There are no acute osseous or soft tissue abnormalities. Impression: No acute cardiopulmonary abnormality. Signed by: Ariel Killian on 04/07/2019 2:49 PM
--- NOTE | 2019-04-07 15:33 | Diagnostic Imaging Report ---
CT of the abdomen and pelvis, without contrast, 04/07/2019. History: Abdominal pain. Hematuria. Comparison: None available. Technique: Multidetector CT scanning of the abdomen and pelvis was performed from the level of the lung bases to the inferior pubic rami without intravenous or oral contrast. Coronal and sagittal multiplanar reformations were obtained. RADIATION DOSE: Total DLP: 779 mGy*cm Dose modulation, iterative reconstruction, and/or weight based adjustment of the mA/kV was utilized to reduce the radiation dose to as low as reasonably achievable. Discussion: Examination is limited without contrast. Lung bases: No visualized abnormalities. Abdomen: Multiple small stones are present within both kidneys, ranging from 4 to 6 mm on the right and 2 to 4 mm on the left. A 4 mm stone is noted within the left renal pelvis. However, there is no evidence of hydronephrosis or perinephric fat stranding on either side. The ureters are not dilated. The liver, gallbladder, biliary tree, spleen, pancreas, and adrenal glands are unremarkable. The abdominal aorta is within normal limits. There is no bowel dilatation. The appendix is visualized and is normal. There is no evidence of adenopathy or free fluid. A small fat-containing umbilical hernia is present. Pelvis: The bladder is unremarkable. The uterus and adnexa are absent. There is no evidence of free fluid or adenopathy. Bones and soft tissues: No acute or mildly. IMPRESSION: 1. Bilateral subcentimeter nonobstructing renal calculi. 2. Small fat-containing umbilical hernia. 3. Status post hysterectomy. Otherwise unremarkable exam. Signed by: Ariel Killian on 04/07/2019 3:30 PM
== END 2019-04-07 16:25 | disposition home or self-care (01) ==
LOC: ER 09:59
DX: R42 Dizziness and giddiness (principal); N30.91 Cystitis, unspecified with hematuria; K76.0 Fatty (change of) liver, not elsewhere classified
CPT/HCPCS: 36415; 71045; 74176; 80053; 81001; 81025; 83690; 83735; 84443; 85025; 87086; 99284; J0696; J2270; J2405; J7030

== ENCOUNTER 2019-05-11 19:38 | Emergency (ER) | payer OTHER ==
[~2019-05-11] VITALS: Ht 162.6 cm; Wt 76.2 kg
[2019-05-11] MEDS ORDERED: HYDROCODONE/APAP 10MG-325MG TAB PO ONE (21:30)
[2019-05-11 21:55] LABS: CLARITY,URINE TURBID (CLEAR); COLOR,URINE RED (YELLOW)
[2019-05-11 21:56] LABS: LEUKOCYTE ESTERASE ,URINE MODERATE (NEGATIVE); NITRITE,URINE POSITIVE (NEGATIVE); PROTEIN,URINE DIPSTICK 2+ (NEGATIVE)
[2019-05-11 21:57] LABS: BILIRUBIN,URINE SMALL (NEGATIVE); KETONES,URINE NEGATIVE (NEGATIVE); URINE UROBILINOGEN 0.2 mg/dL (0.2 - 1)
[2019-05-11 22:04] LABS: BACTERIA,URINE MODERATE /HPF; EPITHELIAL CELLS,URINE RARE /LPF; RBC,URINE >50 /HPF (0-5)
--- NOTE | 2019-05-11 22:12 | Diagnostic Imaging Report ---
EXAM: Abdomen Radiograph 1 View INDICATION: Stent placement COMPARISON: Abdominal CT 04/07/2019 FINDINGS: No abnormalities in the lower chest. Bilateral internal nephroureteral stents in place, proximal and distal coils appear to be improved in position. Normal volume of stool in the colon. No dilated loops of small bowel. No abnormal abdominal calcifications.. No abnormal soft tissue masses. No pneumoperitoneum. No acute osseous abnormality. IMPRESSION: Bilateral internal nephroureteral stents in place, proximal and distal coils appear to be improved in position. Signed by: Lc June DO on 05/11/2019 10:08 PM
[2019-05-11 23:25] VITALS: BP 113/67
== END 2019-05-11 23:41 | disposition home or self-care (01) ==
LOC: ER 19:38
DX: M54.5 Low back pain (principal); R10.9 Unspecified abdominal pain; R11.0 Nausea; F41.9 Anxiety disorder, unspecified; F32.9 Major depressive disorder, single episode, unspecified
CPT/HCPCS: 74018; 81001; 87086; 99283

== ENCOUNTER 2020-03-02 18:52 | Emergency (ER) | payer OTHER ==
[~2020-03-02] VITALS: Ht 162.6 cm; Wt 76.2 kg
--- NOTE | 2020-03-02 19:03 | Emergency Department Note ---
History of Present Illnes History of Present Illness Chief Complaint: Flank Pain History of Present Illness This is a 24 year old female with 10 day h/o of r flank pain. Seen at [facility] and was told that she was passing a stone but was not informed of her UA results. Seen at bedside with patient in distress secondary to pain. . Historian: Patient Onset (how long ago): week(s) Radiation: Reports abdomen Severity: moderate Onset quality: gradual Duration (how long): week(s) (1) Timing of current episode: constant Progression: worsening Chronicity: new Context: Denies recent illness, Denies recent surgery, Denies recent immobilization, Denies recent travel, Denies trauma/injury, Denies new medications, Denies hx of DVT/PE, Denies non-compliance w/ medications, Denies other Exacerbating factors: movement Associated symptoms: Reports fever/chills, Reports nausea/vomiting Previous service: medications given, tests performed, re-evaluation Past Medical/Family History Physician Review I have reviewed the patient's past medical and family history. Any updates have been documented here. Past Medical History Recent Fever: Yes Clinical Suspicion of Infectio: No New/Unexplained Change in Ment: No Past Medical History: Kidney Stones, UTI's, Anxiety, Depression, Other Mental Illness Other Medical History: DEPRESSION, ANXIETY Past Surgical History: Hysterectomy Other Surgery: LITHOTRIPSY AND STENT PLACEMENTS Social History Smoking Cessation: Never Smoker Alcohol Use: None Any Illegal Drug Use: No Other Last Tetanus: CURRENT Review of Systems Review of Systems Constitutional: Reports chills EENTM: Reports no symptoms Cardiovascular: Reports no symptoms Respiratory: Reports no symptoms Gastrointestinal: Reports nausea, Reports vomiting Genitourinary: Reports pain (flank pain) Musculoskeletal: Reports no symptoms Integumentary: Reports no symptoms Neurological: Reports no symptoms Psychological: Reports no symptoms Endocrine: Reports no symptoms Hematological/Lymphatic: Reports no symptoms Physical Exam Related Data Allergies: Coded Allergies: No Known Allergies (Unverified , 01/10/16) Triage Vital Signs Vital Signs Date Time Temp Pulse Resp B/P (MAP) Pulse Ox O2 Delivery O2 Flow Rate FiO2 03/02/20 19:00 98.4 96 20 161/92 100 Room Air Vital signs reviewed: Yes Physical Exam CONSTITUTIONAL Constitutional: Present well-developed, Present well-nourished HENT HENT: Present normocephalic, Present atraumatic, Present oropharynx clear/moist, Present nose normal HENT L/R: Present left ext ear normal, Present right ext ear normal EYES Eyes: Reports PERRL, Reports conjunctivae normal NECK Neck: Present ROM normal PULMONARY Pulmonary: Present effort normal, Present breath sounds normal CARDIOVASCULAR Cardiovascular: Present regular rhythm, Present heart sounds normal, Present capillary refill normal, Present normal rate GASTROINTESTINAL Abdominal: Present right CVA tenderness GENITOURINARY Genitourinary: Present exam deferred SKIN Skin: Present warm, Present dry MUSCULOSKELETAL Musculoskeletal: Present ROM normal NEUROLOGICAL Neurological: Present alert, Present oriented x 3, Present no gross motor or sensory deficits PSYCHOLOGICAL Psychological: Present mood/affect normal, Present judgement normal Results Laboratory Lab results reviewed: Yes Laboratory comments Laboratory Tests Test 03/02/20 20:40 03/02/20 19:00 White Blood Count 6.96 x10e3/uL (4.8-10.8) Red Blood Count 4.26 x10e6/uL (3.6-5.1) Hemoglobin 13.8 g/dL (12.0-16.0) Hematocrit 39.3 % (34.2-44.1) Mean Corpuscular Volume 92.3 fL (81-99) Mean Corpuscular Hemoglobin 32.4 pg (28-32) Mean Corpuscular Hemoglobin Concent 35.1 g/dL (31-35) Red Cell Distribution Width 12.4 % (11.7-14.4) Platelet Count 275 x10e3/uL (140-360) Neutrophils (%) (Auto) 62.5 % (38.7-80.0) Lymphocytes (%) (Auto) 28.6 % (18.0-39.1) Monocytes (%) (Auto) 7.5 % (4.4-11.3) Eosinophils (%) (Auto) 0.9 % (0.0-6.0) Basophils (%) (Auto) 0.4 % (0.0-1.0) Neutrophils # (Auto) 4.4 (2.1-6.9) Lymphocytes # (Auto) 2.0 (1.0-3.2) Monocytes # (Auto) 0.5 (0.2-0.8) Eosinophils # (Auto) 0.1 (0.0-0.4) Basophils # (Auto) 0.0 (0.0-0.1) Absolute Immature Granulocyte (auto 0.01 x10e3/uL (0-0.1) Sodium Level 141 mmol/L (136-145) Potassium Level 3.7 mmol/L (3.5-5.1) Chloride Level 106 mmol/L (98-107) Carbon Dioxide Level 24 mmol/L (22-29) Anion Gap 14.7 mmol/L (8-16) Blood Urea Nitrogen 12 mg/dL (7-26) Creatinine 0.85 mg/dL (0.57-1.11) Estimat Glomerular Filtration Rate > 60 ML/MIN (60-) BUN/Creatinine Ratio 14 (6-25) Glucose Level 101 mg/dL (74-118) Calcium Level 9.6 mg/dL (8.4-10.2) Total Bilirubin 0.3 mg/dL (0.2-1.2) Aspartate Amino Transf (AST/SGOT) 18 IU/L (5-34) Alanine Aminotransferase (ALT/SGPT) 30 IU/L (0-55) Alkaline Phosphatase 92 IU/L (40-150) Total Protein 7.9 g/dL (6.5-8.1) Albumin 4.4 g/dL (3.5-5.0) Globulin 3.5 g/dL (2.3-3.5) Albumin/Globulin Ratio 1.3 (0.8-2.0) Urine Color Yellow (YELLOW) Urine Clarity Sl cloudy (CLEAR) Urine pH 6 (5 - 7) Urine Specific Deport 1.025 (1.010-1.025) Urine Protein Negative (NEGATIVE) Urine Glucose (UA) Negative (NEGATIVE) Urine Ketones Negative (NEGATIVE) Urine Blood Trace (NEGATIVE) Urine Nitrite Negative (NEGATIVE) Urine Bilirubin Negative (NEGATIVE) Urine Urobilinogen 0.2 mg/dL (0.2 - 1) Urine Leukocyte Esterase Small (NEGATIVE) Urine RBC 0-5 /HPF (0-5) Urine WBC 6-10 /HPF (0-5) Urine Epithelial Cells Moderate /LPF (NONE) Urine Bacteria Moderate /HPF (NONE) Urine Test Negative (NEGATIVE) Imaging Imaging results reviewed: Yes Impressions [place] [address] Patient Name: CAROLINE SONG MR #: [id number] : 1995 Age/Sex: 24/F Req #: [id number] [facility] Physician: Ordered by: JOANNE DE LA CRUZ DO Report #: [id number] Location: Room/Bed: Procedure: [id number] CT/CT ABDOMEN/PELVIS WO Exam Date: 03/02/20 Exam Time: 1911 REPORT STATUS: Signed EXAM: CT Abdomen and Pelvis WITHOUT contrast INDICATION: Right flank pain. COMPARISON: None. TECHNIQUE: Abdomen and pelvis were scanned utilizing a multidetector helical scanner from the lung base to the pubic symphysis without administration of IV contrast. Absence of intravenous contrast decreases sensitivity for detection of focal lesions and vascular pathology. Coronal and sagittal reformations were obtained. Routine protocol was performed. IV CONTRAST: None ORAL CONTRAST: None COMPLICATIONS: CT of the abdomen/pelvis on 04/07/2019. RADIATION DOSE: Total DLP: 805 mGy*cm Estimated effective dose: (DLP x 0.015 x size factor) mSv CTDIvol has been reviewed. It is below the limits set by the Radiation Protocol Committee (RPC). Dose modulation, iterative reconstruction, and/or weight based adjustment of the mA/kV was utilized to reduce the radiation dose to as low as reasonably achievable. FINDINGS: LINES and TUBES: None. LOWER THORAX: Unremarkable HEPATOBILIARY: The liver is diffuse hypodense compared to the spleen, consistent with diffuse hepatic diffuse hepatic steatosis. No focal hepatic lesions. No biliary ductal dilation. GALLBLADDER: No radio-opaque stones or sludge. No wall thickening. SPLEEN: No splenomegaly. PANCREAS: No focal masses or ductal dilatation. ADRENALS: No adrenal nodules KIDNEYS/URETERS: No hydronephrosis. No cystic or solid mass lesions. There are multiple nonobstructive stones in the inferior pole of the right kidney measuring up to 6 mm. GI TRACT: No abnormal distention, wall thickening, or evidence of bowel obstruction. Appendix is normal. PELVIC ORGANS/BLADDER: Hysterectomy. No adnexal masses. Urinary bladder unremarkable. LYMPH NODES: No lymphadenopathy. VESSELS: Unremarkable. PERITONEUM / RETROPERITONEUM: No free air or fluid. BONES: Unremarkable. SOFT TISSUES: Unremarkable. IMPRESSION: 1. Nonobstructive right nephrolithiasis. No evidence of obstructive renal or ureteral stones bilaterally. No evidence of hydroureteronephrosis. 2. Hepatic steatosis. Signed by: Torin Alaniz MD on 03/02/2020 8:00 PM Dictated By: TORIN ALANIZ MD 99 Transcribed By: SERENITY on 03/02/201999 COPY TO: JOANNE DE LA CRUZ DO~ Assessment & Plan Medical Decision Making MDM Diff dx : ureteral obstruction, obstructive uropathy, kidney stone, kidney infection, UTI, appendicitis, ectopic Assessment & Plan Final Impression: (1) Pyelonephritis Depart Disposition: HOME, SELF-CARE JOANNE DE LA CRUZ DO Mar 02, 2020 19:03
[2020-03-02] MEDS ORDERED: KETOROLAC TROMETHAMINE 30 MG/ML VIAL IV STA (19:09)
[2020-03-02] MEDS ORDERED: ONDANSETRON HCL INJ 2MG/ML 2ML 2 MG/ML VIAL IV STA ×2 (19:09→22:07)
[2020-03-02] MEDS ORDERED: SODIUM CHLORIDE 0.9% 1000ML 1,000 ML IV STA (19:09)
[2020-03-02 19:53] LABS: BILIRUBIN,URINE NEGATIVE (NEGATIVE); CLARITY,URINE SL CLOUDY (CLEAR); COLOR,URINE YELLOW (YELLOW); KETONES,URINE NEGATIVE (NEGATIVE); LEUKOCYTE ESTERASE ,URINE SMALL (NEGATIVE); NITRITE,URINE NEGATIVE (NEGATIVE); PREGNANCY TEST, URINE NEGATIVE (NEGATIVE); PROTEIN,URINE DIPSTICK NEGATIVE (NEGATIVE); URINE UROBILINOGEN 0.2 mg/dL (0.2 - 1)
--- NOTE | 2020-03-02 20:03 | Diagnostic Imaging Report ---
EXAM: CT Abdomen and Pelvis WITHOUT contrast INDICATION: Right flank pain. COMPARISON: None. TECHNIQUE: Abdomen and pelvis were scanned utilizing a multidetector helical scanner from the lung base to the pubic symphysis without administration of IV contrast. Absence of intravenous contrast decreases sensitivity for detection of focal lesions and vascular pathology. Coronal and sagittal reformations were obtained. Routine protocol was performed. IV CONTRAST: None ORAL CONTRAST: None COMPLICATIONS: CT of the abdomen/pelvis on 04/07/2019. RADIATION DOSE: Total DLP: 805 mGy*cm Estimated effective dose: (DLP x 0.015 x size factor) mSv CTDIvol has been reviewed. It is below the limits set by the Radiation Protocol Committee (RPC). Dose modulation, iterative reconstruction, and/or weight based adjustment of the mA/kV was utilized to reduce the radiation dose to as low as reasonably achievable. FINDINGS: LINES and TUBES: None. LOWER THORAX: Unremarkable HEPATOBILIARY: The liver is diffuse hypodense compared to the spleen, consistent with diffuse hepatic diffuse hepatic steatosis. No focal hepatic lesions. No biliary ductal dilation. GALLBLADDER: No radio-opaque stones or sludge. No wall thickening. SPLEEN: No splenomegaly. PANCREAS: No focal masses or ductal dilatation. ADRENALS: No adrenal nodules KIDNEYS/URETERS: No hydronephrosis. No cystic or solid mass lesions. There are multiple nonobstructive stones in the inferior pole of the right kidney measuring up to 6 mm. GI TRACT: No abnormal distention, wall thickening, or evidence of bowel obstruction. Appendix is normal. PELVIC ORGANS/BLADDER: Hysterectomy. No adnexal masses. Urinary bladder unremarkable. LYMPH NODES: No lymphadenopathy. VESSELS: Unremarkable. PERITONEUM / RETROPERITONEUM: No free air or fluid. BONES: Unremarkable. SOFT TISSUES: Unremarkable. IMPRESSION: 1. Nonobstructive right nephrolithiasis. No evidence of obstructive renal or ureteral stones bilaterally. No evidence of hydroureteronephrosis. 2. Hepatic steatosis. Signed by: Ish Cardona MD on 03/02/2020 8:00 PM
[2020-03-02 20:04] LABS: BACTERIA,URINE MODERATE /HPF; EPITHELIAL CELLS,URINE MODERATE /LPF; RBC,URINE 0-5 /HPF (0-5)
[2020-03-02] MEDS ORDERED: CEFTRIAXONE SOD 1 GM/NS 50 ML 50 ML IV STA (20:22)
[2020-03-02 20:55] LABS: BASOPHILS % 0.4 % (0.0-1.0); EOSINOPHILS # (AUTO) 0.1 (0.0-0.4); EOSINOPHILS % 0.9 % (0.0-6.0); HEMATOCRIT 39.3 % (34.2-44.1); HEMOGLOBIN 13.8 g/dL (12.0-16.0); LYMPHOCYTES % 28.6 % (18.0-39.1); MEAN CORPUSCULAR HEMOGLOBIN 32.4 pg (28-32); MEAN CORPUSCULAR HGB CONC 35.1 g/dL (31-35); MEAN CORPUSCULAR VOLUME 92.3 fL (81-99); MONOCYTES # (AUTO) 0.5 (0.2-0.8); MONOCYTES % 7.5 % (4.4-11.3); NEUTROPHILS # (AUTO) 4.4 (2.1-6.9); NEUTROPHILS % 62.5 % (38.7-80.0); PLATELET COUNT 275 x10e3/uL (140-360); RED BLOOD COUNT 4.26 x10e6/uL (3.6-5.1); RED CELL DISTRIBUTION WIDTH 12.4 % (11.7-14.4)
[2020-03-02 21:15] LABS: ALANINE AMINOTRANSFERASE 30 IU/L (0-55); ALBUMIN 4.4 g/dL (3.5-5.0); ALBUMIN/GLOBULIN RATIO 1.3 (0.8-2.0); ALKALINE PHOSPHATASE 92 IU/L (40-150); ANION GAP 14.7 mmol/L (8-16); BLOOD UREA NITROGEN 12 mg/dL (7-26); BUN/CREATININE RATIO 14 (6-25); CALCIUM 9.6 mg/dL (8.4-10.2); CARBON DIOXIDE 24 mmol/L (22-29); CHLORIDE 106 mmol/L (98-107); CREATININE, SERUM 0.85 mg/dL (0.57-1.11); EST GLOMERULAR FILTRATION RATE > 60 ML/MIN (60-); GLUCOSE 101 mg/dL (74-118); POTASSIUM 3.7 mmol/L (3.5-5.1); SODIUM 141 mmol/L (136-145)
--- OUTSIDE RECORDS SUMMARY | 2020-03-02 21:54 | XMS REPORT | Continuity of Care Document ---
Author Author [facility] t Organization [facility] Address 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 Name Role Phone Nicole ARREGUIN DO PCP ARIEL DE LA CRUZ Attphys Unavailable Nurse, Pain Vtc Attphys Unavailable Doctor Unassigned, Name No Attphys Unavailable NADIA AMBYUE Attphys Unavailable LANETTE MONTALVO Attphys Unavailable Payers Payer Name Policy Type Policy Number Effective Date Expiration Date Lucia lam [facility] [id number] 2018 00:00:00 [facility] Problems Condition Name Condition Details Condition Category Status Onset Date Resolution Date Last Treatment Date Treating Clinician Comments Source Flank pain Flank pain Problem Active [facility] Calculus of kidney Renal calculi Problem Active [facility] Allergies, Adverse Reactions, Alerts Allergy Name Allergy Type Status Severity Reaction(s) Onset Date Inacti ve Date Treating Clinician Comments Source No Known Allergies DA Active U 2019-05-06 00:00:00 [facility] No Known Allergies DA Active U 2019-01-30 00:00:00 [facility] No Known Allergies DA Active U 2017-07-15 00:00:00 [facility] Medications This patient has no known medications. Procedures Procedure Date / Time Performed Performing Clinician Sour e CT of abdomen and pelvis without contrast 2019-04-07 00:00:00 GT KIM LANETTE [facility] Encounters Start Date/Time End Date/Time Encounter [facility] ID Source 2020-02-26 18:50:00 2020-02-26 18:50:00 Emergency E MHSE [facility]SE [id number] 2019-07-14 00:00:00 2019-07-14 00:00:00 [facility] [id number] 2019-07-09 00:00:00 2019-07-09 00:00:00 Orders Only D octor Unassigned, [place] [facility] [id number] 2019-07-08 00:00:00 2019-07-08 00:00:00 Telephone Nurse, [facility] [id number] 2019-05-31 19:48:00 2019-05-31 19:48:00 Emergency E MHSE MHSE [id number] [facility] 2019-05-13 21:01:00 2019-05-13 21:01:00 Emergency E MHSE MHSE [id number] [facility] 2019-05-11 19:38:00 2019-05-11 23:41:00 Departed Emergency Room 1 DAKOTAH ZUNIGA [facility] [id number] [facility] 2019-04-07 09:59:00 2019-04-07 16:25:00 Departed Emergency Room 1 LANETTE MONTALVO [facility] [id number] [facility] 2019-04-01 19:29:00 2019-04-01 19:29:00 Emergency E SE MHSE 7510 [facility] 2019-02-04 19:34:00 2019-02-04 19:34:00 Emergency E MHSE MHSE [id number] [facility] 2019-02-01 18:30:00 2019-02-01 18:30:00 Emergency E MHSE SE 7508 [facility] 2019-01-14 19:49:00 2019-01-14 19:49:00 Emergency E SE SE 7507 [facility] Results Test Description Test Time Test Comments Results Result Comments Source CT ABDOMEN/PELVIS WO 2020-03-02 19:55:00 [facility] [address] [address] Patient Name: CAROLINE SONG MR #: [id number] : 1995 Age/Sex: 24/F Req #: [id number] Adm Physician: Ordered by: ARIEL DE LA CRUZ DO Report #: [id number] Location: ER Room/Bed: Procedure: [id number] CT/CT ABDOMEN/PELVIS WO Exam Date: 03/02/20 Exam Time: 1911 REPORT STATUS: Signed EXAM: CT Abdomen and Pelvis WITHOUT contrast INDICATION: Right flank pain. COMPARISON: None. TECHNIQUE: Abdomen and pelvis were scanned utilizing a multidetector helical scanner from the lung base to the pubic symphysis without administration of IV contrast. Absence of intravenous contrast decreases sensitivity for detection of focal lesions and vascular pathology. Coronal and sagittal reformations were obtained. Routine protocol was performed. IV CONTRAST: None ORAL CONTRAST: None COMPLICATIONS: CT of the abdomen/pelvis on 04/07/2019. RADIATION DOSE: Total DLP: 805 mGy*cm Estimated effective dose: (DLP x 0.015 x size factor) mSv CTDIvol has been reviewed. It is below the limits set by the Radiation Protocol Committee (RPC). Dose modulation, iterative reconstruction, and/or weight based adjustment of the mA/kV was utilized to reduce the radiation dose to as low as reasonably achievable. FINDINGS: LINES and TUBES: None. LOWER THORAX: Unremarkable HEPATOBILIARY: The liver is diffuse hypodense compared to the spleen, consistent with diffuse hepatic diffuse hepatic steatosis. No focal hepatic lesions. No biliary ductal dilation. GALLBLADDER: No radio-opaque stones or sludge. No wall thickening. SPLEEN: No splenomegaly. PANCREAS: No focal masses or ductal dilatation. ADRENALS: No adrenal nodules KIDNEYS/URETERS: No hydronephrosis. No cystic or solid mass lesions. There are multiple nonobstructive stones in the inferior pole of the right kidney measuring up to 6 mm. GI TRACT: No abnormal distention, wall thickening, or evidence of bowel obstruction. Appendix is normal. PELVIC ORGANS/BLADDER: Hysterectomy. No adnexal masses. Urinary bladder unremarkable. LYMPH NODES: No lymphadenopathy. VESSELS: Unremarkable. PERITONEUM / RETROPERITONEUM: No free air or fluid. BONES: Unremarkable. SOFT TISSUES: Unremarkable. IMPRESSION: 1. Nonobstructive right nephrolithiasis. No evidence of obstructive renal or ureteral stones bilaterally. No evidence of hydroureteronephrosis. 2. Hepatic steatosis. Signed by: Ish Alaniz MD on 03/02/2020 8:00 PM Dictated By: ISH ALANIZ MD 99 Transcribed By: SERENITY on 03/02/201999 COPY TO: ARIEL DE L ACRUZ 2020-01-26 16:43:00 RUN DATE: 01/26/20 [place] [facility] PAGE 1 RUN TIME: 1643 Specimen Inquiry RUN USER: INTERFACE PATIENT: CAROLINE SONG LOC: ANA U #: [id number] AGE/SX: ROOM: RE01/23/20REG DR: Diego Mckeon MD : [birth year] BED: DIS: STATUS: [facility] TLOC: SPEC #: [id number] RECD: 01/23/20 STATUS: MONIQUE DION #: [id number] KAM: 01/23/20- SUBM DR: Diego Mckeon MD ENTERED: 01/23/20 SP TYPE: BREAST OTHR DR: Germán Arreguin DO ORDERED: GROSS COPIES TO: Diego Mckeon MD [address] [place], [place] [phone] Germán Arreguin DO [address] [place], [place] [phone] PROCEDURES: GROSS (01/26/20- 1339) TISSUES: RIGHT BREAST, NOS - MASS CLINICAL HISTORY COLLECTION DATE: 01/19/20 EXCISION OF RIGHT BREAST MASS FINAL DIAGNOSIS Right breast mass, excision: LOCALIZED ABSCESS FORMATION WITH FOREIGN BODY TYPE GIANT CELL REACTION AND SMALL AMOUNT OF KERATIN DEBRIS, (see microscopic description) INTACT BENIGN EPIDERMAL SURFACE WI TH MILD HYPERKERATOSIS NEGATIVE FOR MALIGNANCY RRB/gm D 84177 MACROSCOPIC The specimen is received in formalin, labeled with the patient's name "right breast mass" and consists of an unoriented portion of yellow fatty tissue and an attached ellipse of light pink-moreland skin. The skin ellipse measures 1.4 by up to 0.6 cm. The underlying fatty tissue measures 2.5 x 2.2 x 2.2 cm. Sectioning through the tissue shows slightly thickened CONTINUED ON NEXT PAGE RUN DATE: 01/26/20 [facility] PAGE 2 RUN TIME: 1643 Specimen Inquiry RUN USER: INTERFACE SPEC #: [id number] PATIENT: CAROLINE SONG #[id number] (Continued) MACROSCOPIC (Continued) pink d ermis and unremarkable lobulated fatty tissue. In the center of the excision there appears to be a disrupted cystic space. No other focal lesions are identified. Ink code: Blue, surgical margin. Section code: 1A- 1B, skin with adjacent tissue entirely submitted. GROSS PERFORMED AT [facility] [address] [place] [address] [phone] MICROSCOPIC The sections show an intact epidermal surface with mild epithelial hyperplasia and hyperkeratosis. A well-delineated area of abscess formation is present in the deep dermis/superficial subcutaneous tissue. A prominent foreign body type giant cell reaction and a small amount of keratin debris are present. The findings suggest a disrupted pore or epidermal inclusion cyst. Features diagnostic of malignancy are not present. All of the stains, including any controls performed, stain appropriately. MICROSCOPIC PERFORMED AT [facility] [address] [place] [address] [phone] PERFORMING SITE Processed at: [facility] [address] [facility], [place] [address] Signed SIGNATURE ON FILE Bandar Serrano MD 01/26/20 1643 END OF REPORT Novel Coronavirus 20182020-01-20 13:04:00 Test Item Novel Coronavirus 2019 Inhouse (test code = MBCKC90AX) Negative Negative Positive results are indicative of the presence fgSTAU-LjQ-8 RNA, clinical correlation with patient historyand other diagnostic information is necessary to determinepatient infection status. Positive results do not rule outbacterial infection or co-infection with other viruses. Negative results do not preclude SARS-CoV-2 infection andshould not be used as the sole basis for patient managementdecisions. Negative results must be combined with otherclinical observations, patient history, and epidemiologicalinformation. Detection of SARS-CoV-2 RNA may be affected bysample collection methods, storage conditions, and/or stageof infection. Viral RNA mutations, vaccinations, antiviraltherapeutics, antibiotics, chemotherapeutic orimmunosuppressant drugs have not been evaluated for effectson detection. Results are for the identification of SARS-CoV-2 RNA usingthe [employer] M2000 System under the FDA Emergency UseAuthorization. The testing is performed by personneltrained in the procedures for the [employer] M2000 moleculardiagnostic SARS-CoV-2 assay in vitro. Novel Coronavirus [id number] 13:03:00* Test Item Value Reference Range Interpretation Comments Novel Coronavirus 2019 Inhouse (test code = SRGBP02DJ) Negative Negative Positive results are indicative of the presence mvTMXV-ZzE-2 RNA, clinical correlation with patient historyand other diagnostic information is necessary to determinepatient infection status. Positive results do not rule outbacterial infection or co-infection with other viruses. Negative results do not preclude SARS-CoV-2 infection andshould not be used as the sole basis for patient managementdecisions. Negative results must be combined with otherclinical observations, patient history, and epidemiologicalinformation. Detection of SARS-CoV-2 RNA may be affected bysample collection methods, storage conditions, and/or stageof infection. Viral RNA mutations, vaccinations, antiviraltherapeutics, antibiotics, chemotherapeutic orimmunosuppressant drugs have not been evaluated for effectson detection. Results are for the identification of SARS-CoV-2 RNA usingthe [employer] M2000 System under the FDA Emergency UseAuthorization. The testing is performed by personneltrained in the procedures for the [employer] M2000 moleculardiagnostic SARS-CoV-2 assay in vitro. BASIC METABOLIC [id number] 11:39:00* Test Item Value Reference Range Interpretation Comments SODIUM (test code = NA) 142 mmol/L 136-145 N POTASSIUM (test code = K) 3.8 mmol/L 3.5-5.1 N CHLORIDE (test code = CL) 111.0 mmol/L 98-107 H CARBON DIOXIDE (test code = CO2) 27.0 mmol/L 21-32 N ANION GAP (test code = GAP) 7.8 10-20 L GLUCOSE (test code = GLU) 87 mg/dL 74-106 N BLOOD UREA NITROGEN (test code = BUN) 10 mg/dL 7-18 N GLOMERULAR FILTRATION RATE (test code = GFR) > 60 mL/min >=60 Estimated GFR by using Modified MDRD formula.Chronic kidney disease is defined as either kidney damageor GFR <60 mL/min/1.73 m2 for >3 months. CREATININE (test code = CREAT) 0.90 mg/dL 0.55-1.02 N Note change in reference range due to change in reagent. BUN/CREATININE RATIO (test code = BUN/CREA) 11.3 10-20 N CALCIUM (test code = CA) 9.2 mg/dL 8.5-10.1 N HCG SERUM [id number] 11:35:00* Test Item Value Reference Range Interpretation Comments HCG SERUM QUAL (test code = HCGQL) NEGATIVE NEGATIVE This HCGQL test is NOT applicable for MALE patients.Check with nurse about probable order error.If Tumor Marker Test needed, nurse should order test "HCGTU"(Test #550.15455) BASIC METABOLIC [id number] 11:34:00* Test Item Value Reference Range Interpretation Comments SODIUM (test code = NA) 142 mmol/L 136-145 N POTASSIUM (test code = K) 3.8 mmol/L 3.5-5.1 N CHLORIDE (test code = CL) 111.0 mmol/L 98-107 H CARBON DIOXIDE (test code = CO2) mmol/L 21-32 ANION GAP (test code = GAP) 10-20 GLUCOSE (test code = GLU) mg/dL 74-106 BLOOD UREA NITROGEN (test code = BUN) mg/dL 7-18 GLOMERULAR FILTRATION RATE (test code = GFR) mL/min >=60 CREATININE (test code = CREAT) mg/dL 0.55-1.02 BUN/CREATININE RATIO (test code = BUN/CREA) 10-20 CALCIUM (test code = CA) mg/dL 8.5-10.1 CBC W/AUTO [id number] 11:14:00* Test Item Value Reference Range Interpretation Comments WHITE BLOOD CELL (test code = WBC) 4.8 K/mm3 4.5-12.5 N RED BLOOD CELL (test code = RBC) 4.39 mill/mm3 3.7-5.2 N HEMOGLOBIN (test code = HGB) 13.6 gram/dL 11.5-15.5 N HEMATOCRIT (test code = HCT) 40.0 % 36.0-46.0 N MEAN CELL VOLUME (test code = MCV) 91.1 fL 80-98 N MEAN CELL HGB (test code = MCH) 31.0 picogram 27.0-33.0 N MEAN CELL HGB CONCETRATION (test code = MCHC) 34.0 gram/dL 33.0-36. 0 N RED CELL DISTRIBUTION WIDTH (test code = RDW) 12.2 % 11.6-16. 2 N RED CELL DISTRIBUTION WIDTH SD (test code = RDW-SD) 40.4 fL 37 .0-51.0 N PLATELET COUNT (test code = PLT) 255 K/mm3 150-450 N MEAN PLATELET VOLUME (test code = MPV) 11.1 fL 6.7-11.0 H NEUTROPHIL % (test code = NT%) 60.6 % 39.0-69.0 N IMMATURE GRANULOCYTE % (test code = IG%) 0.2 % 0.0-5.0 N LYMPHOCYTE % (test code = LY%) 30.0 % 25.0-55.0 N MONOCYTE % (test code = MO%) 7.6 % 0.0-10.0 N EOSINOPHIL % (test code = EO%) 1.2 % 0.0-5.0 N BASOPHIL % (test code = BA%) 0.4 % 0.0-1.0 N NUCLEATED RBC % (test code = NRBC%) 0.0 % 0-0 N NEUTROPHIL # (test code = NT#) 2.93 K/mm3 1.8-7.7 N IMMATURE GRANULOCYTE # (test code = IG#) 0.01 x10 3/uL 0-0.03 N LYMPHOCYTE # (test code = LY#) 1.45 K/mm3 1.0-5.0 N MONOCYTE # (test code = MO#) 0.37 K/mm3 0-0.8 N EOSINOPHIL # (test code = EO#) 0.06 K/mm3 0.0-0.5 N BASOPHIL # (test code = BA#) 0.02 K/mm3 0.0-0.2 N NUCLEATED RBC # (test code = NRBC#) 0.00 K/mm3 0.0-0.1 N CBC W/AUTO [id number] 11:12:00* Test Item Value Reference Range Interpretation Comments WHITE BLOOD CELL (test code = WBC) K/mm3 4.5-12.5 RED BLOOD CELL (test code = RBC) mill/mm3 3.7-5.2 HEMOGLOBIN (test code = HGB) 13.6 gram/dL 11.5-15.5 N HEMATOCRIT (test code = HCT) 40.0 % 36.0-46.0 N MEAN CELL VOLUME (test code = MCV) fL 80-98 MEAN CELL HGB (test code = MCH) picogram 27.0-33.0 MEAN CELL HGB CONCETRATION (test code = MCHC) gram/dL 33.0-36. 0 RED CELL DISTRIBUTION WIDTH (test code = RDW) % 11.6-16. 2 RED CELL DISTRIBUTION WIDTH SD (test code = RDW-SD) fL 37 .0-51.0 PLATELET COUNT (test code = PLT) 255 K/mm3 150-450 N MEAN PLATELET VOLUME (test code = MPV) fL 6.7-11.0 NEUTROPHIL % (test code = NT%) % 39.0-69.0 IMMATURE GRANULOCYTE % (test code = IG%) % 0.0-5.0 LYMPHOCYTE % (test code = LY%) % 25.0-55.0 MONOCYTE % (test code = MO%) % 0.0-10.0 EOSINOPHIL % (test code = EO%) % 0.0-5.0 BASOPHIL % (test code = BA%) % 0.0-1.0 NEUTROPHIL # (test code = NT#) K/mm3 1.8-7.7 LYMPHOCYTE # (test code = LY#) K/mm3 1.0-5.0 MONOCYTE # (test code = MO#) K/mm3 0-0.8 EOSINOPHIL # (test code = EO#) K/mm3 0.0-0.5 BASOPHIL # (test code = BA#) K/mm3 0.0-0.2 [id number] 14:02:00 RUN DATE: 11/18/19 [facility] PAGE 1 RUN TIME: 1403 Specimen Inqui ry RUN USER: INTERFACE PATIENT: CAROLINE SONG ACCT #: [id number] [facility] U #: [id number] AGE/SX: 24/ ROOM: RE11/17/19REG DR: Jamari Doran MD : [birth year] BED: DIS: STATUS: [facility] TLOC: SPEC #: [id number] RECD: 11/17/19 STATUS: MONIQUE REQ #: [id number] KAM: 11/17/19- DR: Jamari Doran MD ENTERED: 11/17/19 SP TYPE: STOMACH OTHR DR: Germán Munoz od, DO ORDERED: FREEMAN COPIES TO: Jamari Doran MD [address] [place] [address] Germán Arreguin DO [address] [place], [place] [id number] PROCEDURES: FREEMAN (11/18/19-1053) TISSU ES: 1. DUODENUM, NOS - BX 2. GASTRIC CORPUS - BX CLINI ROSEANNA HISTORY COLLECTION DATE: 11/17/19 STOMACH ISSUES FINAL DIAGN OSIS Duodenum, cold biopsy: MILDLY FRAGMENTED SMALL BOWEL MUCOSA WITH UNREMARKABLE VILLOUS ARCHITECTURE AND NO INTRAEPITHELIAL INFLAMMATION NEGATIVE FOR MALIGNANCY Gastric tissue, cold biopsy: REACTIVE GASTROPATHY SEPARATE FRAGMENTS OF GASTRIC MUCOSA WITH NO PATHOLOGIC ALTE RATION NEGATIVE FOR INTESTINAL METAPLASIA NEGATIVE FOR MALIGNANCY RRB/sm D [id number] CONTINUED ON N EXT PAGE RUN DATE: 11/18/19 [place] [facility] b PAGE 2 RUN TIME: 1403 Sp jamarn Inquiry RUN USER: INTERFACE SPEC #: [id number] PATIENT: Margret CAROLINE COLEMAN #[id number] (Continued) MACROSCOPIC The first specimen is received in formalin, labeled with the betsy ent's name, and identified as "duodenum bx". The specimen consists of two moreland biopsy fragments measuring 0.3 cm each, submitted as (1). The second s pecimen is received in formalin, labeled with the patient's name, and identifi ed as "gastric bx". It consists of moreland biopsy material measuring 0.4 cm in ag gregate, submitted as (2). GROSS PERFORMED AT [facility] [address] [facility], [place] [address] [phone] MICROSCOPIC All of the stains, including any c ontrols performed, stain appropriately. MICROSCOPIC PERFORMED AT [facility] [address] [facility] [place] [address] [phone] PERFORMING SITE Diagnosis performed at: [facility] [address] [place] [address] ------- ----- Signed SIGNATURE ON FILE Bandar Serrano MD 1402 END OF REP ORT Novel Coronavirus 2019 [id number] 19:54:00* Test Item Value Reference Range Interpretation Comments Novel Coronavirus 2018 Inhouse (test code = COVNONPUI) Negative Negative Testing Criteria: Preprocedure ScreeningComments: 11/17/19Novel Coronavirus 2019 [id number] 19:53:00* Test Item Value Reference Range Interpretation Comments Novel Coronavirus 2018 Inhouse (test code = COVNONPUI) Negative Negative Testing Criteria: Preprocedure ScreeningComments: 11/17/19- US ABDOMEN [id number] 11:56:00 Name: CAROLINE SONG [facility] : 1995 Age/S: 24 / F [address] Unit #: [id number] Loc: [place]ARD [place] [address] Phys: Jamari Doran MD Acct: [id number] Dis Date: Status: REG CLI PHONE #: [phone] Exam Date: 11/03/2019 1044 FAX #: [phone] Reason: 571.8,K76.0,R10.11,Z87.891,789.06 EXAMS: CPT CODE: [id number] US ABDOMEN COMPLETE 26377 HISTORY: Fatty liver and epigastric pain. COMPARISON: CT scan from May 06, 2019. Location: [facility]. The liver is diffusely hyperechogenic suggesting mild diffuse fibrofatty infiltration which limited evaluation for intrahepatic mass however no discrete lesions. The liver measured 17.5 cm in length. No intra or extrahepatic biliary ductal dilatation. CBD is normal at 2.1 mm. Main portal vein is patent with hepatopedal flow and normal spectral waveform. Gallbladder is without gallstones. No pericholecystic fluid or wall thickening. No ascites. Both kidneys are free from hydronephrosis with bilateral nonobstructing calyceal stones measuring up to 3.6 mm on the right and 3.7 mm on the left. These are better seen on the previous CT scan. Left kidney measured 12.2 cm in length. Simple cyst in the left upper pole measured 1.3 cm. Right kidney measured 11.6 cm in length. The spleen is not enlarged at 10.5 cm in length. Visualized portions of the IVC, aorta and pancreas are normal however imaged incompletely. IMPRESSION: No g allstones. Fibrofatty infiltrated liver. No hydronephrosis on either deni e with bilateral nonobstructing calyceal stones with unremarkable spleen . No ascites. 20 at 1156 Reported and signed by: Isiah Tian M.D. CC: Jamari Doran MD; Germán Arreguin DO Technologist: Maura Pierre RDFormerly [facility] Date/Time: 020 (1156) t.KWASIR.TH4 Orig Print D/T: S: 11/03/2019 (1153) Probe: PAGE 1 Signed Report URINALYSIS [id number] 18:37:00* Test Item Value Reference Range Interpretation Comments UA COLOR (test code = COLU) YELLOW YELLOW UA APPEARANCE (test code = APPU) HAZY CLEAR A UA GLUCOSE DIPSTICK (test code = DGLUU) norm mg/dL NEGATIVE UA BILIRUBIN DIPSTICK (test code = BILU) NEGATIVE mg/dL NEGATIVE UA KETONE DIPSTICK (test code = KETU) neg mg/dL NEGATIVE UA SPECIFIC GRAVITY (test code = SGU) 1.015 1.001-1.035 UA BLOOD DIPSTICK (test code = ANUEL) neg Kings/uL NEGATIVE UA PH DIPSTICK (test code = WOODROW) 6.0 5.0-8.0 UA PROTEIN DIPSTICK (test code = PROU) neg mg/dL Neg-15 UA UROBILINIOGEN DIPSTICK (test code = URO) norm mg/dL 0.0-0.2 UA NITRITE DIPSTICK (test code = MAG) NEGATIVE NEGATIVE UA LEUKOCYTE ESTERASE DIPSTICK (test code = LEUU) 100 Radha/uL (1+) u L NEGATIVE A UA WBC (test code = WBCU) 3-5 per HPF 0-5 UA RBC (test code = RBCU) 0-2 per HPF 0-5 UA EPITHELIAL CELLS (test code = EPIU) Moderate (5-10/hpf) per HPF Few UA BACTERIA (test code = BACU) MODERATE per HPF NONE A Urine Source? Clean Catch- XR CHEST 2 [id number] 18:00:00 Name: CRAOLINE SONG [facility] : 1995 Age/S:24 /F [address] [facility] Unit#:[id number] Loc: [place] [address] Phys: Lucia Goins ASSIGNMENT OFFICER Dis Date: PHONE #: [phone] Status: PRE ER FAX #: [phone] Exam Date: 08/10/2019 Re ason: cough EXAMS: CPT CODE: [id number] XR CHEST 2 V [id number] REASON FOR EXAM: cough Exam Order Date: 08/10/2019 5:38 PM Ordering M.Lynda: Betina Goins NP PROCEDURE: - XR CHEST 2 V COMPARISON: Chest x-ray March 31, 2019 FINDINGS: The lungs are cl ear. There is no pleural effusion or pneumothorax. Pulmonary vascularity is within normal limits. Cardiomediastinal silhouette is normal in size for technique. The mediastinal contours are within normal limits. Musculoskeletal structures are within normal limits. The visualized upper abdomen is within normal limits. IMP RESSION: No acute cardiopulmonary process. Location: R R at 1800 Reported and signed by: Phillip Mckinnon MD CC: Germán Parikh DO; Betina Goins NP Technologist: ALICIA RUIZ CT Trnscrpt Data: 08/10/2019 (1800) t.SDR.R R31 Orig Print D/T: S: 08/10/2019 (2953) PAGE 1 Signed Report LACTIC [id number] 23:12:00* Test Item Value Reference Range Interpretation Comments LACTIC ACID (test code = LACT) 0.8 MMOL/L 0.4-1.9 N COMPREHENSIVE METABOLIC [id number] 23:07:00* Test Item Value Reference Range Interpretation Comments SODIUM (test code = NA) 143 mmol/L 136-145 N POTASSIUM (test code = K) 3.8 mmol/L 3.5-5.1 N CHLORIDE (test code = CL) 104 mmol/L 101-109 N CARBON DIOXIDE (test code = CO2) 28.0 mmol/L 21-32 N ANION GAP (test code = GAP) 15 mmol/L 10-20 N GLUCOSE (test code = GLU) 85 mg/dL 74-106 N BLOOD UREA NITROGEN (test code = BUN) 16 mg/dL 3-21 N CREATININE (test code = CREAT) 0.99 mg/dL 0.55-1.3 N BUN/CREATININE RATIO (test code = BUN/CREA) 16.2 10-20 N TOTAL PROTEIN (test code = PROT) 7.6 g/dL 6.5-8.4 N ALBUMIN (test code = ALB) 3.7 g/dL 3.4-4.8 N GLOBULIN (test code = GLOB) 3.9 G/DL 1-10 N ALBUMIN/GLOBULIN RATIO (test code = A/G) 0.95 RATIO 0.75-1.50 N CALCIUM (test code = CA) 9.5 mg/dL 8.4-10.2 N BILIRUBIN TOTAL (test code = BILT) 0.50 mg/dL 0.0-1.0 N SGOT/AST (test code = AST) 17 U/L 6-32 N SGPT/ALT (test code = ALT) 39 U/L 12-78 N N ote: Change in REFERENCE RANGE due to new reagent method. ALKALINE PHOSPHATASE TOTAL (test code = ALKP) 81 U/L 38-126 N [id number] 23:07:00* Test Item Value Reference Range Interpretation Comments LIPASE (test code = LIP) 92 U/L 128-270 L COMPREHENSIVE METABOLIC [id number] 22:59:00* Test Item Value Reference Range Interpretation Comments SODIUM (test code = NA) 143 mmol/L 136-145 N POTASSIUM (test code = K) 3.8 mmol/L 3.5-5.1 N CHLORIDE (test code = CL) 104 mmol/L 101-109 N CARBON DIOXIDE (test code = CO2) 28.0 mmol/L 21-32 N ANION GAP (test code = GAP) 15 mmol/L 10-20 N GLUCOSE (test code = GLU) 85 mg/dL 74-106 N BLOOD UREA NITROGEN (test code = BUN) 16 mg/dL 3-21 N CREATININE (test code = CREAT) 0.99 mg/dL 0.55-1.3 N BUN/CREATININE RATIO (test code = BUN/CREA) 16.2 10-20 N TOTAL PROTEIN (test code = PROT) gram/dL 6.4-8.2 ALBUMIN (test code = ALB) g/dL 3.4-5.0 GLOBULIN (test code = GLOB) g/dL 2.7-4.2 ALBUMIN/GLOBULIN RATIO (test code = A/G) 0.75-1.50 CALCIUM (test code = CA) 9.5 mg/dL 8.4-10.2 N BILIRUBIN TOTAL (test code = BILT) mg/dL 0.2-1.2 SGOT/AST (test code = AST) IUnit/L 15-37 SGPT/ALT (test code = ALT) U/L 10-69 ALKALINE PHOSPHATASE TOTAL (test code = ALKP) IUnit/L 45-117 [id number] 22:59:00* Test Item Value Reference Range Interpretation Comments LIPASE (test code = LIP) Unit/L 144-286 CBC W/AUTO [id number] 22:57:00* Test Item Value Reference Range Interpretation Comments WHITE BLOOD CELL (test code = WBC) 7.0 K/mm3 4.5-12.5 N RED BLOOD CELL (test code = RBC) 4.09 mill/mm3 3.7-5.2 N HEMOGLOBIN (test code = HGB) 12.7 gram/dL 11.5-15.5 N HEMATOCRIT (test code = HCT) 37.3 % 36.0-46.0 N MEAN CELL VOLUME (test code = MCV) 91.2 fL 80-98 N MEAN CELL HGB (test code = MCH) 31.1 picogram 27.0-33.0 N MEAN CELL HGB CONCETRATION (test code = MCHC) 34.0 gram/dL 33.0-36. 0 N RED CELL DISTRIBUTION WIDTH (test code = RDW) 11.9 % 11.6-16. 2 N RED CELL DISTRIBUTION WIDTH SD (test code = RDW-SD) 39.9 fL 37 .0-51.0 N PLATELET COUNT (test code = PLT) 272 K/mm3 150-450 N MEAN PLATELET VOLUME (test code = MPV) 10.7 fL 6.7-11.0 N NEUTROPHIL % (test code = NT%) 60.5 % 39.0-69.0 N LYMPHOCYTE % (test code = LY%) 30.2 % 25.0-55.0 N MONOCYTE % (test code = MO%) 6.7 % 0.0-10.0 N EOSINOPHIL % (test code = EO%) 2.1 % 0.0-5.0 N BASOPHIL % (test code = BA%) 0.4 % 0.0-1.0 N NEUTROPHIL # (test code = NT#) 4.22 K/mm3 1.8-7.7 N LYMPHOCYTE # (test code = LY#) 2.11 K/mm3 1.0-5.0 N MONOCYTE # (test code = MO#) 0.47 K/mm3 0-0.8 N EOSINOPHIL # (test code = EO#) 0.15 K/mm3 0.0-0.5 N BASOPHIL # (test code = BA#) 0.03 K/mm3 0.0-0.2 N MANUAL DIFF REQUIRED (test code = MDIFF) NO URINALYSIS [id number] 22:55:00* Test Item Value Reference Range Interpretation Comments UA COLOR (test code = COLU) BLOODY YELLOW A UA APPEARANCE (test code = APPU) BLOODY CLEAR A UA GLUCOSE DIPSTICK (test code = DGLUU) norm mg/dL NEGATIVE UA BILIRUBIN DIPSTICK (test code = BILU) NEGATIVE mg/dL NEGATIVE UA KETONE DIPSTICK (test code = KETU) 15 (1+) mg/dL NEGATIVE A UA SPECIFIC GRAVITY (test code = SGU) 1.020 1.001-1.035 UA BLOOD DIPSTICK (test code = ANUEL) 250 (4+) Kings/uL NEGATIVE A UA PH DIPSTICK (test code = WOODROW) 5.0 5.0-8.0 UA PROTEIN DIPSTICK (test code = PROU) 500 (3+) mg/dL Neg-15 A UA UROBILINIOGEN DIPSTICK (test code = URO) norm mg/dL 0.0-0.2 UA NITRITE DIPSTICK (test code = MAG) NEGATIVE NEGATIVE UA LEUKOCYTE ESTERASE DIPSTICK (test code = LEUU) 100 Radha/uL (1+) u L NEGATIVE A UA WBC (test code = WBCU) 6-10 per HPF 0-5 A UA RBC (test code = RBCU) TNTC per HPF 0-5 A UA EPITHELIAL CELLS (test code = EPIU) Moderate (5-10/hpf) per HPF Few UA BACTERIA (test code = BACU) MODERATE per HPF NONE A Urine Source? Clean CatchDRUGS OF ABUSE SCREEN [id number] 22:55:00* Test Item Value Reference Range Interpretation Comments URN COCAINE (test code = COCAURN) NEGATIVE NEGATIVE URN CANNABINOIDS (test code = CANNABURN) NEGATIVE NEGATIVE URN AMPHETAMINE (test code = AMPHETURN) NEGATIVE NEGATIVE URN BARBITURATE (test code = BARBITURN) NEGATIVE NEGATIVE URN BENZODIAZEPINE (test code = BENZOURN) NEGATIVE NEGATIVE URN OPIATES (test code = OPIATURN) POSITIVE NEGATIVE A URN PHENCYCLIDINE (PCP) (test code = PHENCURN) NEGATIVE NEGATIV E Urine Source? Clean CatchURINALYSIS [id number] 22:43:00* Test Item Value Reference Range Interpretation Comments UA COLOR (test code = COLU) BLOODY YELLOW A UA APPEARANCE (test code = APPU) BLOODY CLEAR A UA GLUCOSE DIPSTICK (test code = DGLUU) norm mg/dL NEGATIVE UA BILIRUBIN DIPSTICK (test code = BILU) NEGATIVE mg/dL NEGATIVE UA KETONE DIPSTICK (test code = KETU) 15 (1+) mg/dL NEGATIVE A UA SPECIFIC GRAVITY (test code = SGU) 1.020 1.001-1.035 UA BLOOD DIPSTICK (test code = ANUEL) 250 (4+) Kings/uL NEGATIVE A UA PH DIPSTICK (test code = WOODROW) 5.0 5.0-8.0 UA PROTEIN DIPSTICK (test code = PROU) 500 (3+) mg/dL Neg-15 A UA UROBILINIOGEN DIPSTICK (test code = URO) norm mg/dL 0.0-0.2 UA NITRITE DIPSTICK (test code = MAG) NEGATIVE NEGATIVE UA LEUKOCYTE ESTERASE DIPSTICK (test code = LEUU) 100 Radha/uL (1+) u L NEGATIVE A UA WBC (test code = WBCU) 6-10 per HPF 0-5 A UA RBC (test code = RBCU) TNTC per HPF 0-5 A UA EPITHELIAL CELLS (test code = EPIU) Moderate (5-10/hpf) per HPF Few UA BACTERIA (test code = BACU) MODERATE per HPF NONE A Urine Source? Clean CatchDRUGS OF ABUSE SCREEN [id number] 22:43:00* Test Item Value Reference Range Interpretation Comments URN COCAINE (test code = COCAURN) NEGATIVE URN CANNABINOIDS (test code = CANNABURN) NEGATIVE URN AMPHETAMINE (test code = AMPHETURN) NEGATIVE URN BARBITURATE (test code = BARBITURN) NEGATIVE URN BENZODIAZEPINE (test code = BENZOURN) NEGATIVE URN OPIATES (test code = OPIATURN) NEGATIVE URN PHENCYCLIDINE (PCP) (test code = PHENCURN) NEGATIV E Urine Source? Clean CatchDUODENUM,[id number] 16:47:00 RUN DATE: 05/23/19 [facility] PAGE 1 RUN TIME: 1647 Specimen Inqui ry RUN USER: INTERFACE PATIENT: CAROLINE SONG ACCT #: [id number] LOC: PATTIE U #: [id number] AGE/SX: 24/F ROOM: RE05/19/19REG DR: Jamari Doran MD : [birth year] BED: DIS: STATUS: GINO GAGE TLOC: SPEC #: [id number] RECD: 05/19/19 STATUS: MONIQUE RELv #: [id number] KAM: 05/19/[address] [facility] [address]: Jamari Doran MD ENTERED: 05/19/19 SP TYPE: BX DUODEN RIAN DR: Germán Munoz od, DO ORDERED: GROSS COPIES TO: Jamari Doran MD [address] [place] [address] Germán Arreguin DO [address] [place] [address] PROCEDURES: GROSS (05/23/19-1029) TISSU ES: 1. DUODENUM, NOS - COLD BX 2. GASTRIC CORPUS - COLD BX 3. RECTUM, NOS - COLD BX CLINICAL HISTORY COLLECTION DATE: 04/28 ABD PAIN/CONSTIPATION/DIARRHEA GASTRITIS/HIATAL HERNIA/HEMORR HOIDS FINAL DIAGNOSIS Duodenum, biopsy: DUODENAL MUCOSA, NO PA THOLOGIC ALTERATION Gastric biopsy: MILD CHRONIC INFLAMMATION, GASTRIC MUCOSA NO INTESTINAL METAPLASIA SEEN NEGATIVE FOR HELICOBA CTER PYLORI BY GIEMSA STAIN NEGATIVE FOR MALIGNANCY Rectum, biopsy: COLONIC MUCOSA, NO PATHOLOGIC ALTERATION DMW/sm CONTINUED ON NEXT PAGE RUN DATE: 05/23/19 [place] - [facility] PAGE 2 RUN TIME: 1647 Specimen Inquiry RUN USER: IN OWEN SP EC #: [id number] PATIENT: CAROLINE SONG JAMISON #[id number] ( Continued) FINAL DIAGNOSIS (Continued) D 3) 19876, 77650 MACROSCOPIC The first specimen is received in formalin , labeled with the patient's name, and identified as "Duodenum BX". The speci men consists of moreland biopsy material measuring 0.5 cm in aggregate. The s econd specimen is received in formalin, labeled with the patient's name, and i dentified as "Gastric BX". It consists of moreland biopsy material measuring 0.5 c m in aggregate. The third specimen is received in formalin, labeled with t he patient's name, and identified as "Rectum BX". It consists of moreland biopsy m aterial measuring 0.3 cm. GROSS PERFORMED AT [facility] [address] [place] [address] [phone] MICROSCOPIC All of the stains, includi ng any controls performed, stain appropriately. MICROSCOPIC PERFORMED AT [facility] [address] [place] [address] ([phone] PERFORMING SITE Diagnosis perfor med at: [facility] Pathology Consul ALFREDA mendiola [address] [place] [address] Signed SIGNATURE ON FILE Nasima Penny MD 05/23/19 1647 END OF REP ORT ABDOMEN-1VIEW (LENNY)2019-05-11 22:07:00 [facility] [address] [address] Patient Name: CAROLINE SONG MR #: [id number] : 1995 Age/Sex: 24/F Req #: [id number] Adm Physician: Ordered by: ARIEL RAGLAND ASSIGNMENT OFFICER Report #: [id number] Location: ER Room/Bed: Procedure: [id number] DX/ABDOMEN-1VIEW (KUB) Exam Date: 05/11/19 Exam Peter e: [id number] REPORT STATUS: Signed EX AM: Abdomen Radiograph 1 View INDICATION: Stent placement COMPARISON: A bdominal CT 04/07/2019 FINDINGS: No abnormalities in the lower chest. Bilateral internal nephroureteral stents in place, proximal and distal coils appear to be improved in position. Normal volume of stool in the colon. No dilated loops of small bowel. No abnormal abdominal calcifications.. No abnormal soft tissue masses. No pneumoperitoneum. No acute osseous abnormality. IMPRESSION: Bilateral internal nephroureteral kings nts in place, proximal and distal coils appear to be improved in position. Signed by: Lc Arellano DO on 05/11/2019 10:08 PM Dictated By: LC ARELLANO DO 07 Transcribed By: SERENITY on 05/11/192207 COPY TO: ARIEL RAGLAND ASSIGNMENT OFFICER Urine [id number] 22:04:00* Test Item Value Reference Range Interpretation Comments Urine WBC (test code = 5821-4) 11-20 0-5 [facility] [id number] 22:04:00* Test Item Value Reference Range Interpretation Comments Urine RBC (test code = 67463-2) >50 0-5 H [facility] [id number] 22:04:00* Test Item Value Reference Range Interpretation Comments Urine Bacteria (test code = 65372-4) MODERATE NONE H [facility] Epithelial [id number] 22:04:00 * Test Item Value Reference Range Interpretation Comments Urine Epithelial Cells (test code = 48582-0) RARE NONE [facility] [id number] 21:57:00* Test Item Value Reference Range Interpretation Comments Urine Color (test code = 5778-6) RED YELLOW H [facility] [id number] 21:57:00* Test Item Value Reference Range Interpretation Comments Urine Clarity (test code = 29568-0) TURBID CLEAR H [facility] Specific [id number] 21:57:00 * Test Item Value Reference Range Interpretation Comments Urine Specific [place] (test code = 5811-5) 1.025 1.010-1.02 5 [facility] [id number] 21:57:00* Test Item Value Reference Range Interpretation Comments Urine pH (test code = 04390-0) 6.5 5-7 [facility] Leukocyte [id number] 21:57:00* Test Item Value Reference Range Interpretation Comments Urine Leukocyte Esterase (test code = 5799-2) MODERATE NEGATIVE [facility] [id number] 21:57:00* Test Item Value Reference Range Interpretation Comments Urine Nitrite (test code = 36974-7) POSITIVE NEGATIVE [facility] [id number] 21:57:00* Test Item Value Reference Range Interpretation Comments Urine Protein (test code = 5804-0) 2+ NEGATIVE H [facility] Glucose (UA)2019-05-11 21:57:00* Test Item Value Reference Range Interpretation Comments Urine Glucose (UA) (test code = 2349-9) NEGATIVE NEGATIVE [facility] [id number] 21:57:00* Test Item Value Reference Range Interpretation Comments Urine Ketones (test code = 47615-1) NEGATIVE NEGATIVE [facility] [id number] 21:57:00* Test Item Value Reference Range Interpretation Comments Urine Urobilinogen (test code = 16045-5) 0.2 0.2-1 [facility] [id number] 21:57:00* Test Item Value Reference Range Interpretation Comments Urine Bilirubin (test code = 1978-6) SMALL NEGATIVE [facility] [id number] 21:57:00* Test Item Value Reference Range Interpretation Comments Urine Blood (test code = 69914-3) 3+ NEGATIVE [facility] A[facility] PELVIS [id number] 23:29:00 Name: CAROLINE SONG [facility] : 1995 Age/S: 24 / F [address] [facility] Unit #: [id number] Loc: [place] [address] Phys: Darrell Marina ASSIGNMENT OFFICER Acct: [id number] Di s Date: Status: REG ER PHONE #: [phone] Exam Date: 05/06/2019 2313 FAX #: Reason: PAIN EXAMS: CPT CODE: [id number] CT ABD PELVIS W/CONT 74517 EXAM: - CT ABD PELVIS W/ CONT HISTORY: TECHNIQUE: Axial tomograms through the abdomen and pelvis were obtained after intravenous contrast. Lori nal and sagittal reformatted images are provided. This exam was performed according to our departmental dose-optimization program, which includes au tomated exposure control, adjustment of the mA and/or kV according to betsy ent size and/or use of iterative reconstruction technique. C OMPARISON: January 30, 2019. FINDINGS: The visualiz ed lung bases are clear. There is fatty infiltration of the liver. Multiple small nonobstructing renal calculi bilaterally right more than left. No hydronephrosis. The spleen, pancreas, adrenal glands and abdominal aorta demonstrate no significant abnormalities. The appendix has a normal appearance. The bowel is not distended. There is minimal thickening of the wall with fatty changes in right upper quadrant of the colon. This could reflect chronic inflammation. There is no adenopathy or free fluid. There is no acute osseous abnormality. IMPRESSION: Bilateral nephrolithiasis. No hydronephrosis. Hepatic steatosis. El ectronically Signed by Grover Cano MD on 05/06/2019 at 2329 Reported and signed by: Grover Cano MD PAGE 1 Signed Report (CONTINUED) Name: CAROLINE SONG [facility] : 1995 Age/S: 24 / F [address] [facility] Unit #: [id number] Loc: [place] [address] Phys: Lili Marina ASSIGNMENT OFFICER Acct: [id number] Dis Date: Status: R EG ER PHONE #: [phone] Exam Date: 04/27 FAX #: [phone] Reason: PAIN EXAMS: CPT CODE: [id number] CT ABD PELVIS W/CONT 7 4177 <Continued> CC: Germán Arreguin DO; Lili Marina ASSIGNMENT OFFICER Technologist:ALICIA KLINE CTDI: DLP: Trnscb Date/Time: 05/06/2019 ([phone] [email or web address] Orig Print D/T: S: 05/06/2019 (7039) PAGE 2 Signed Report BASIC METABOLIC [id number] 22:39:00* Test Item Value Reference Range Interpretation Comments SODIUM (test code = NA) 140 mmol/L 136-145 N POTASSIUM (test code = K) 4.3 mmol/L 3.5-5.1 N CHLORIDE (test code = CL) 105.0 mmol/L 98-107 N CARBON DIOXIDE (test code = CO2) 28.0 mmol/L 21-32 N ANION GAP (test code = GAP) 11.3 10-20 N GLUCOSE (test code = GLU) 85 mg/dL 74-106 N BLOOD UREA NITROGEN (test code = BUN) 22 mg/dL 7-18 H GLOMERULAR FILTRATION RATE (test code = GFR) 50 mL/min >=60 Estimated GFR by using Modified MDRD formula.Chronic kidney disease is defined as either kidney damageor GFR <60 mL/min/1.73 m2 for >3 months. CREATININE (test code = CREAT) 1.30 mg/dL 0.55-1.02 H Note change in reference range due to change in reagent. BUN/CREATININE RATIO (test code = BUN/CREA) 17.1 10-20 N CALCIUM (test code = CA) 8.9 mg/dL 8.5-10.1 N HEPATIC FUNCTION [id number] 22:39:00* Test Item Value Reference Range Interpretation Comments TOTAL PROTEIN (test code = PROT) 7.3 gram/dL 6.4-8.2 N ALBUMIN (test code = ALB) 3.8 g/dL 3.4-5.0 N GLOBULIN (test code = GLOB) 3.5 gram/dL 2.7-4.2 N ALBUMIN/GLOBULIN RATIO (test code = A/G) 1.1 0.75-1.50 N BILIRUBIN TOTAL (test code = BILT) 0.40 mg/dL 0.0-1.0 N BILIRUBIN DIRECT (test code = BILD) 0.10 mg/dL 0.0-0.20 N SGOT/AST (test code = AST) 18 IUnit/L 15-37 N SGPT/ALT (test code = ALT) 48 IUnit/L 12-78 N ALKALINE PHOSPHATASE TOTAL (test code = ALKP) 75 IUnit/L 45-117 N Note change in reference range due to change in reagent. [id number] 22:39:00* Test Item Value Reference Range Interpretation Comments LIPASE (test code = LIP) 125 U/L 73.0-393.0 N BASIC METABOLIC [id number] 22:35:00* Test Item Value Reference Range Interpretation Comments SODIUM (test code = NA) 140 mmol/L 136-145 N POTASSIUM (test code = K) 4.3 mmol/L 3.5-5.1 N CHLORIDE (test code = CL) 105.0 mmol/L 98-107 N CARBON DIOXIDE (test code = CO2) mmol/L 21-32 ANION GAP (test code = GAP) 10-20 GLUCOSE (test code = GLU) mg/dL 74-106 BLOOD UREA NITROGEN (test code = BUN) mg/dL 7-18 GLOMERULAR FILTRATION RATE (test code = GFR) mL/min >=60 CREATININE (test code = CREAT) mg/dL 0.55-1.02 BUN/CREATININE RATIO (test code = BUN/CREA) 10-20 CALCIUM (test code = CA) mg/dL 8.5-10.1 HEPATIC FUNCTION [id number] 22:35:00* Test Item Value Reference Range Interpretation Comments TOTAL PROTEIN (test code = PROT) gram/dL 6.4-8.2 ALBUMIN (test code = ALB) g/dL 3.4-5.0 GLOBULIN (test code = GLOB) gram/dL 2.7-4.2 ALBUMIN/GLOBULIN RATIO (test code = A/G) 0.75-1.50 BILIRUBIN TOTAL (test code = BILT) mg/dL 0.0-1.0 BILIRUBIN DIRECT (test code = BILD) mg/dL 0.0-0.20 SGOT/AST (test code = AST) IUnit/L 15-37 SGPT/ALT (test code = ALT) IUnit/L 12-78 ALKALINE PHOSPHATASE TOTAL (test code = ALKP) IUnit/L 45-117 [id number] 22:35:00* Test Item Value Reference Range Interpretation Comments LIPASE (test code = LIP) U/L 73.0-393.0 URINALYSIS [id number] 22:23:00* Test Item Value Reference Range Interpretation Comments UA COLOR (test code = COLU) Light-Yellow YELLOW UA APPEARANCE (test code = APPU) CLEAR CLEAR UA GLUCOSE DIPSTICK (test code = DGLUU) NEGATIVE mg/dL NEGATIVE UA BILIRUBIN DIPSTICK (test code = BILU) NEGATIVE mg/dL NEGATIVE UA KETONE DIPSTICK (test code = KETU) NEGATIVE mg/dL NEGATIVE UA SPECIFIC GRAVITY (test code = SGU) 1.022 1.001-1.035 UA BLOOD DIPSTICK (test code = ANUEL) Negative mg/dL NEGATIVE UA PH DIPSTICK (test code = WOODROW) 6.0 5.0-8.0 UA PROTEIN DIPSTICK (test code = PROU) NEGATIVE mg/dL NEGATIVE UA UROBILINIOGEN DIPSTICK (test code = URO) Normal mg/dL NEGATIVE UA NITRITE DIPSTICK (test code = MAG) NEGATIVE NEGATIVE UA LEUKOCYTE ESTERASE W REFLEX (test code = LEUUR) 75 Radha/uL (1+) Radha/uL NEGATIVE A UA WBC (test code = WBCU) 6-10 per HPF 0-5 A UA RBC (test code = RBCU) 3-5 #/HPF 0-5 UA EPITHELIAL CELLS (test code = EPIU) FEW per HPF FEW UA BACTERIA (test code = BACU) FEW #/HPF NONE A UA HYALINE CAST (test code = HYALU) 3-5 #/LPF 0-5 UA MUCUS (test code = MUCU) FEW #/LPF FEW Urine Source? Clean CatchCBC W/O [id number] 22:21:00* Test Item Value Reference Range Interpretation Comments WHITE BLOOD CELL (test code = WBC) 6.2 K/mm3 4.5-12.5 N RED BLOOD CELL (test code = RBC) 4.07 mill/mm3 3.7-5.2 N HEMOGLOBIN (test code = HGB) 12.6 gram/dL 11.5-15.5 N HEMATOCRIT (test code = HCT) 38.3 % 36.0-46.0 N MEAN CELL VOLUME (test code = MCV) 94.1 fL 80-98 N MEAN CELL HGB (test code = MCH) 31.0 picogram 27.0-33.0 N MEAN CELL HGB CONCETRATION (test code = MCHC) 32.9 gram/dL 33.0-36. 0 L RED CELL DISTRIBUTION WIDTH (test code = RDW) 11.8 % 11.6-16. 2 N PLATELET COUNT (test code = PLT) 219 K/mm3 150-450 N MEAN PLATELET VOLUME (test code = MPV) 10.7 fL 6.7-11.0 N CBC W/O [id number] 22:20:00* Test Item Value Reference Range Interpretation Comments WHITE BLOOD CELL (test code = WBC) K/mm3 4.5-12.5 RED BLOOD CELL (test code = RBC) mill/mm3 3.7-5.2 HEMOGLOBIN (test code = HGB) 12.6 gram/dL 11.5-15.5 N HEMATOCRIT (test code = HCT) 38.3 % 36.0-46.0 N MEAN CELL VOLUME (test code = MCV) fL 80-98 MEAN CELL HGB (test code = MCH) picogram 27.0-33.0 MEAN CELL HGB CONCETRATION (test code = MCHC) gram/dL 33.0-36. 0 RED CELL DISTRIBUTION WIDTH (test code = RDW) % 11.6-16. 2 PLATELET COUNT (test code = PLT) K/mm3 150-450 MEAN PLATELET VOLUME (test code = MPV) fL 6.7-11.0 URINALYSIS [id number] 21:59:00* Test Item Value Reference Range Interpretation Comments UA COLOR (test code = COLU) Light-Yellow YELLOW UA APPEARANCE (test code = APPU) CLEAR CLEAR UA GLUCOSE DIPSTICK (test code = DGLUU) NEGATIVE mg/dL NEGATIVE UA BILIRUBIN DIPSTICK (test code = BILU) NEGATIVE mg/dL NEGATIVE UA KETONE DIPSTICK (test code = KETU) NEGATIVE mg/dL NEGATIVE UA SPECIFIC GRAVITY (test code = SGU) 1.022 1.001-1.035 UA BLOOD DIPSTICK (test code = ANUEL) Negative mg/dL NEGATIVE UA PH DIPSTICK (test code = WOODROW) 6.0 5.0-8.0 UA PROTEIN DIPSTICK (test code = PROU) NEGATIVE mg/dL NEGATIVE UA UROBILINIOGEN DIPSTICK (test code = URO) Normal mg/dL NEGATIVE UA NITRITE DIPSTICK (test code = MAG) NEGATIVE NEGATIVE UA LEUKOCYTE ESTERASE W REFLEX (test code = LEUUR) 75 Radha/uL (1+) Radha/uL NEGATIVE A UA WBC (test code = WBCU) per HPF 0-5 UA RBC (test code = RBCU) per HPF 0-5 UA EPITHELIAL CELLS (test code = EPIU) per HPF Few UA BACTERIA (test code = BACU) per HPF NONE Urine Source? Clean CatchCT ABDOMEN/PELVIS [id number] 15:23:[address] [address] Patient Name: CAROLINE SONG MR #: [id number] : 1995 Age/Sex: 24/F Req #: [id number] Adm Physician: Ordered by: KATIA MELLO, LANETTE MELLO Report #: [id number] Location: ER Room/Bed: Procedure: 1111-[address]/CT ABDOMEN/PELVIS WO Exam Date: 04/07/19 Exam Time: 1400 REPORT STATUS: Signed CT of the abdomen and pelvis, without contrast, 04/07/2019. History: Abdominal pain. Hematuria. Comparison: None available. Te chnique: Multidetector CT scanning of the abdomen and pelvis was performed fro m the level of the lung bases to the inferior pubic rami without intravenous o r oral contrast. Coronal and sagittal multiplanar reformations were obtained. RADIATION DOSE: Total DLP: 779 mGy*cm Dose modulation, iterati ve reconstruction, and/or weight based adjustment of the mA/kV was utilized to reduce the radiation dose to as low as reasonably achievable. Discussio n: Examination is limited without contrast. Lung bases: No visualized abnormal ities. Abdomen: Multiple small stones are present within both kidneys, rang ing from 4 to 6 mm on the right and 2 to 4 mm on the left. A 4 mm stone is not ed within the left renal pelvis. However, there is no evidence of hydronephros is or perinephric fat stranding on either side. The ureters are not dilated. The liver, gallbladder, biliary tree, spleen, pancreas, and adrenal glands are unremarkable. The abdominal aorta is within normal limits. There is no rosario wel dilatation. The appendix is visualized and is normal. There is no evidence of adenopathy or free fluid. A small fat-containing umbilical hernia is pres ent. Pelvis: The bladder is unremarkable. The uterus and adnexa are absent. There is no evidence of free fluid or adenopathy. Bones and soft tissue s: No acute or mildly. IMPRESSION: 1. Bilateral subcentimeter nonob structing renal calculi. 2. Small fat-containing umbilical hernia. 3. Status post hysterectomy. Otherwise unremarkable exam. Signed by: Ariel middleton on 04/07/2019 3:30 PM Dictated By: ARIEL KILLIAN MD 1530 Transcribed By: SERENITY on 9 1530 COPY TO: LANETTE MONTALVO CHEST SINGLE (PORTABLE)2019-04-07 14:49:00 [facility] [address] [place] [address] Patient Name: CAROLINE SONG MR #: [id number] : 1995 Age/Sex: 24/F Req #: [id number] Adm Physician: Ordered by: LANETTE MONTALVO MD, MD Report #: [id number] Location: ER Room/Bed: Procedure: 1111-00 39 DX/CHEST SINGLE (PORTABLE) Exam Date: 04/07/19 Ex am Time: 1408 REPORT STATUS: Signed Chest, 1 view, 04/07/2019. History: Upper abdominal pain. Comparison: None available. Findings: The cardiomediastinal silhouette and pulmonary vasculature are within normal limits for a portable exam. There is n o focal consolidation or pleural effusion. There are no acute osseous or soft tissue abnormalities. Impression: No acute cardiopulmonary abnormality. Signed by: Ariel Killian on 04/07/2019 2:49 PM Dictated By: ARIEL KILLIAN MD 1447 Transcri bed By: SERENITY on 04/07/19 144 COPY TO: LANETTE MONTALVO Urine [id number] 13:41:00* Test Item Value Reference Range Interpretation Comments Urine WBC (test code = 5821-4) 11-20 0-5 [facility] [id number] 13:41:00* Test Item Value Reference Range Interpretation Comments Urine RBC (test code = 93894-9) 21-50 0-5 [facility] [id number] 13:41:00* Test Item Value Reference Range Interpretation Comments Urine Bacteria (test code = 93475-4) FEW NONE [facility] Ep[facility]helial [id number] 13:41:00 * Test Item Value Reference Range Interpretation Comments Urine Epithelial Cells (test code = 66415-7) FEW NONE [facility] [id number] 13:33:00* Test Item Value Reference Range Interpretation Comments Urine Color (test code = 5778-6) YELLOW YELLOW [facility] [id number] 13:33:00* Test Item Value Reference Range Interpretation Comments Urine Clarity (test code = 61418-6) CLOUDY CLEAR H [facility] Specific Fopwumk0990-91-91 13:33:00 * Test Item Value Reference Range Interpretation Comments Urine Specific [place] (test code = 5811-5) 1.010 1.010-1.02 5 [facility] sT1823-79-92 13:33:00* Test Item Value Reference Range Interpretation Comments Urine pH (test code = 93997-0) 7.5 5-7 [facility] Leukocyte Xrfuukhr3159-39-70 13:33:00* Test Item Value Reference Range Interpretation Comments Urine Leukocyte Esterase (test code = 07427-5) SMALL NEGATIV E [facility] Ylxfqhg2871-94-47 13:33:00* Test Item Value Reference Range Interpretation Comments Urine Nitrite (test code = 79664-1) NEGATIVE NEGATIVE [facility] Lspqdpa4356-31-11 13:33:00* Test Item Value Reference Range Interpretation Comments Urine Protein (test code = 39008-0) NEGATIVE NEGATIVE [facility] Glucose (UA)2019-04-07 13:33:00* Test Item Value Reference Range Interpretation Comments Urine Glucose (UA) (test code = 61085-4) NEGATIVE NEGATIVE [facility] Xfzzahd8138-67-39 13:33:00* Test Item Value Reference Range Interpretation Comments Urine Ketones (test code = 58545-6) NEGATIVE NEGATIVE [facility] Gcecteeuprfl3784-65-15 13:33:00* Test Item Value Reference Range Interpretation Comments Urine Urobilinogen (test code = 79362-2) 0.2 0.2-1 [facility] Ctksdlpjm7338-70-87 13:33:00* Test Item Value Reference Range Interpretation Comments Urine Bilirubin (test code = 1977-8) NEGATIVE NEGATIVE [facility] Auinw8499-13-20 13:33:00* Test Item Value Reference Range Interpretation Comments Urine Blood (test code = 68607-1) 3+ NEGATIVE [facility] Krul2251-18-61 13:33:00* Test Item Value Reference Range Interpretation Comments Urine Test (test code = 2106-3) NEGATIVE NEGATIVE [facility] Xsyw9271-89-20 13:33:00* Test Item Value Reference Range Interpretation Comments Urine Test (test code = 2106-3) NEGATIVE NEGATIVE [facility] SystemThyroid Stimulating Hormone (TSH) 2019-04-07 13:25:00* Test Item Value Reference Range Interpretation Comments Thyroid Stimulating Hormone (TSH) (test code = 13770-7) 0.646 0.350-4.940 [facility] SystemThyroid Stimulating Hormone (TSH) 2019-04-07 13:25:00* Test Item Value Reference Range Interpretation Comments Thyroid Stimulating Hormone (TSH) (test code = 27540-8) 0.646 0.350-4.940 [facility] Hmemi7440-33-83 13:08:00* Test Item Value Reference Range Interpretation Comments Sodium Level (test code = 2951-2) 140 136-145 [facility] SystemPotassium Dpygy2518-50-80 13:08:00* Test Item Value Reference Range Interpretation Comments Potassium Level (test code = 2823-3) 4.0 3.5-5.1 [facility] SystemChloride Ztpaw3768-97-14 13:08:00* Test Item Value Reference Range Interpretation Comments Chloride Level (test code = 2075-0) 104 98-107 [facility] SystemCarbon Dioxide Jdwmh4978-33-25 13:08:00* Test Item Value Reference Range Interpretation Comments Carbon Dioxide Level (test code = 2028-9) 26 22-29 [facility] SystemAnion Geo3659-59-32 13:08:00* Test Item Value Reference Range Interpretation Comments Anion Gap (test code = 44422-0) 14.0 8-16 [facility] SystemBlood Urea Dyygsvkj0164-45-95 13:08:00* Test Item Value Reference Range Interpretation Comments Blood Urea Nitrogen (test code = 3094-0) 18 7-26 [facility] SystemCreatinine2019-11-11 13:08:00* Test Item Value Reference Range Interpretation Comments Creatinine (test code = 2160-0) 0.79 0.57-1.11 [facility] SystemBUN/Creatinine Wzktv1690-23-12 13:08:00* Test Item Value Reference Range Interpretation Comments BUN/Creatinine Ratio (test code = 3097-3) 23 6-25 [facility] SystemEstimat Glomerular Filtration Rate 2019-04-07 13:08:00* Test Item Value Reference Range Interpretation Comments Estimat Glomerular Filtration Rate (test code = 704524861) > 60 >60 Ranges were taken from the National Kidney Disease Education Program and the [facility] literature.Reference ranges:60 or greater: Gierka26-08 ( for 3 consecutive months): Chronic kidney disease 15 or less: Kidney failureDeTar Healthcare SystemGlucose Pffwd1037-12-39 13:08:00* Test Item Value Reference Range Interpretation Comments Glucose Level (test code = VVY7429) 82 74-118 [facility] SystemCalcium Tksbp1876-12-28 13:08:00* Test Item Value Reference Range Interpretation Comments Calcium Level (test code = 98149-1) 9.7 8.4-10.2 [facility] SystemMagnesium Hheya4719-30-63 13:08:00* Test Item Value Reference Range Interpretation Comments Magnesium Level (test code = 54831-6) 2.0 1.3-2.1 [facility] SystemTotal Abiizvmwl4499-48-54 13:08:00* Test Item Value Reference Range Interpretation Comments Total Bilirubin (test code = 1975-2) 0.3 0.2-1.2 [facility] SystemAspartate Amino Transf (AST/SGOT) 2019-04-07 13:08:00* Test Item Value Reference Range Interpretation Comments Aspartate Amino Transf (AST/SGOT) (test code = Aspartate Amino Transf (AST/SGOT)) 39 5-34 H [facility] SystemAlanine Aminotransferase (ALT/SGPT) 2019-04-07 13:08:00* Test Item Value Reference Range Interpretation Comments Alanine Aminotransferase (ALT/SGPT) (test code = 1742-6) 93 0-55 H [facility] SystemTotal Qqjinno6770-16-94 13:08:00* Test Item Value Reference Range Interpretation Comments Total Protein (test code = 2885-2) 7.6 6.5-8.1 [facility] SystemAlbumin2019-11-11 13:08:00* Test Item Value Reference Range Interpretation Comments Albumin (test code = 1751-7) 4.1 3.5-5.0 [facility] SystemGlobulin2019-11-11 13:08:00* Test Item Value Reference Range Interpretation Comments Globulin (test code = 93067-5) 3.5 2.3-3.5 [facility] SystemAlbumin/Globulin Bdwnr5660-56-31 13:08:00 * Test Item Value Reference Range Interpretation Comments Albumin/Globulin Ratio (test code = 1759-0) 1.2 0.8-2.0 [facility] SystemAlkaline Zrimtqiccwp3578-77-70 13:08:00* Test Item Value Reference Range Interpretation Comments Alkaline Phosphatase (test code = 6768-6) 79 40-150 [facility] SystemLipase2019-11-11 13:08:00* Test Item Value Reference Range Interpretation Comments Lipase (test code = 3040-3) 27 8-78 [facility] Nthku3084-99-86 13:08:00* Test Item Value Reference Range Interpretation Comments Sodium Level (test code = 2951-2) 140 136-145 [facility] SystemPotassium Xyyxr8460-83-61 13:08:00* Test Item Value Reference Range Interpretation Comments Potassium Level (test code = 2823-3) 4.0 3.5-5.1 [facility] SystemChloride Aovcb4236-12-57 13:08:00* Test Item Value Reference Range Interpretation Comments Chloride Level (test code = 2075-0) 104 98-107 [facility] SystemCarbon Dioxide Cfzau8920-81-84 13:08:00* Test Item Value Reference Range Interpretation Comments Carbon Dioxide Level (test code = 2028-9) 26 22-29 [facility] SystemAnion Ohp5188-61-99 13:08:00* Test Item Value Reference Range Interpretation Comments Anion Gap (test code = 64367-0) 14.0 8-16 [facility] SystemBlood Urea Hcrzzdyz4102-69-37 13:08:00* Test Item Value Reference Range Interpretation Comments Blood Urea Nitrogen (test code = 3094-0) 18 7-26 [facility] SystemCreatinine2019-11-11 13:08:00* Test Item Value Reference Range Interpretation Comments Creatinine (test code = 2160-0) 0.79 0.57-1.11 [facility] SystemBUN/Creatinine Vrfzu0412-84-30 13:08:00* Test Item Value Reference Range Interpretation Comments BUN/Creatinine Ratio (test code = 3097-3) 23 6-25 [facility] SystemEstimat Glomerular Filtration Rate 2019-04-07 13:08:00* Test Item Value Reference Range Interpretation Comments Estimat Glomerular Filtration Rate (test code = 850262385) > 60 >60 Ranges were taken from the National Kidney Disease Education Program and the [facility] literature.Reference ranges:60 or greater: Luxptk89-08 ( for 3 consecutive months): Chronic kidney disease 15 or less: Kidney failureDeTar Healthcare SystemGlucose Zjeus1971-29-88 13:08:00* Test Item Value Reference Range Interpretation Comments Glucose Level (test code = WRF6547) 82 74-118 [facility] SystemCalcium Wkkrz6159-71-22 13:08:00* Test Item Value Reference Range Interpretation Comments Calcium Level (test code = 76617-7) 9.7 8.4-10.2 [facility] SystemMagnesium Cqagn9143-96-30 13:08:00* Test Item Value Reference Range Interpretation Comments Magnesium Level (test code = 95479-6) 2.0 1.3-2.1 [facility] SystemTotal Gneeqzyqt5713-84-82 13:08:00* Test Item Value Reference Range Interpretation Comments Total Bilirubin (test code = 1975-2) 0.3 0.2-1.2 [facility] SystemAspartate Amino Transf (AST/SGOT) 2019-04-07 13:08:00* Test Item Value Reference Range Interpretation Comments Aspartate Amino Transf (AST/SGOT) (test code = Aspartate Amino Transf (AST/SGOT)) 39 5-34 H [facility] SystemAlanine Aminotransferase (ALT/SGPT) 2019-04-07 13:08:00* Test Item Value Reference Range Interpretation Comments Alanine Aminotransferase (ALT/SGPT) (test code = 1742-6) 93 0-55 [facility] Yreoebb6385-48-52 13:08:00* Test Item Value Reference Range Interpretation Comments Total Protein (test code = 2885-2) 7.6 6.5-8.1 [facility] SystemAlbumin2019-11-11 13:08:00* Test Item Value Reference Range Interpretation Comments Albumin (test code = 1751-7) 4.1 3.5-5.0 [facility] SystemGlobulin2019-11-11 13:08:00* Test Item Value Reference Range Interpretation Comments Globulin (test code = 12582-7) 3.5 2.3-3.5 [facility] SystemAlbumin/Globulin Xtatn8440-52-10 13:08:00 * Test Item Value Reference Range Interpretation Comments Albumin/Globulin Ratio (test code = 1759-0) 1.2 0.8-2.0 [facility] SystemAlkaline Psszllssptd9305-18-32 13:08:00* Test Item Value Reference Range Interpretation Comments Alkaline Phosphatase (test code = 6768-6) 79 40-150 [facility] SystemLipase2019-11-11 13:08:00* Test Item Value Reference Range Interpretation Comments Lipase (test code = 3040-3) 27 8-78 [facility] SystemWhite Blood Nxcrg4244-00-86 12:47:00* Test Item Value Reference Range Interpretation Comments White Blood Count (test code = 6690-2) 4.38 4.8-10.8 L [facility] SystemRed Blood Czotk0401-80-04 12:47:00* Test Item Value Reference Range Interpretation Comments Red Blood Count (test code = 789-8) 4.42 3.6-5.1 [facility] SystemHemoglobin2019-11-11 12:47:00* Test Item Value Reference Range Interpretation Comments Hemoglobin (test code = 84936-3) 13.8 12.0-16.0 [facility] SystemHematocrit2019-11-11 12:47:00* Test Item Value Reference Range Interpretation Comments Hematocrit (test code = 4544-3) 41.5 34.2-44.1 [facility] SystemMean Corpuscular Znzqbp7100-03-42 12:47:00* Test Item Value Reference Range Interpretation Comments Mean Corpuscular Volume (test code = 787-2) 93.9 81-99 [facility] SystemMean Corpuscular Toklwnoqou0972-66-92 12:47:00* Test Item Value Reference Range Interpretation Comments Mean Corpuscular Hemoglobin (test code = 785-6) 31.2 28-32 [facility] SystemMean Corpuscular Hemoglobin Concent 2019-04-07 12:47:00* Test Item Value Reference Range Interpretation Comments Mean Corpuscular Hemoglobin Concent (test code = 786-4) 33.3 31-35 [facility] SystemRed Cell Distribution Xaqao3715-14-68 12:47:00* Test Item Value Reference Range Interpretation Comments Red Cell Distribution Width (test code = 49784-7) 11.7 11.7 -14.4 [facility] SystemPlatelet Xzctj0307-12-42 12:47:00* Test Item Value Reference Range Interpretation Comments Platelet Count (test code = 777-3) 211 140-360 [facility] SystemNeutrophils (%) (Auto)2019-04-07 12:47:00 * Test Item Value Reference Range Interpretation Comments Neutrophils (%) (Auto) (test code = 69522-2) 52.5 38.7-80.0 [facility] SystemLymphocytes (%) (Auto)2019-04-07 12:47:00 * Test Item Value Reference Range Interpretation Comments Lymphocytes (%) (Auto) (test code = 736-9) 35.8 18.0-39.1 [facility] SystemMonocytes (%) (Auto)2019-04-07 12:47:00* Test Item Value Reference Range Interpretation Comments Monocytes (%) (Auto) (test code = 5905-5) 9.4 4.4-11.3 [facility] SystemEosinophils (%) (Auto)2019-04-07 12:47:00 * Test Item Value Reference Range Interpretation Comments Eosinophils (%) (Auto) (test code = 713-8) 1.4 0.0-6.0 [facility] SystemBasophils (%) (Auto)2019-04-07 12:47:00* Test Item Value Reference Range Interpretation Comments Basophils (%) (Auto) (test code = 706-2) 0.7 0.0-1.0 [facility] SystemIM GRANULOCYTES %2019-04-07 12:47:00* Test Item Value Reference Range Interpretation Comments IM GRANULOCYTES % (test code = IM GRANULOCYTES %) 0.2 0.0- 1.0 [facility] SystemNeutrophils # (Auto)2019-04-07 12:47:00* Test Item Value Reference Range Interpretation Comments Neutrophils # (Auto) (test code = 751-8) 2.3 2.1-6.9 [facility] SystemLymphocytes # (Auto)2019-04-07 12:47:00* Test Item Value Reference Range Interpretation Comments Lymphocytes # (Auto) (test code = 12169-3) 1.6 1.0-3.2 [facility] SystemMonocytes # (Auto)2019-04-07 12:47:00* Test Item Value Reference Range Interpretation Comments Monocytes # (Auto) (test code = 742-7) 0.4 0.2-0.8 [facility] SystemEosinophils # (Auto)2019-04-07 12:47:00* Test Item Value Reference Range Interpretation Comments Eosinophils # (Auto) (test code = 711-2) 0.1 0.0-0.4 [facility] SystemBasophils # (Auto)2019-04-07 12:47:00* Test Item Value Reference Range Interpretation Comments Basophils # (Auto) (test code = 704-7) 0.0 0.0-0.1 [facility] SystemAbsolute Immature Granulocyte (auto 2019-04-07 12:47:00* Test Item Value Reference Range Interpretation Comments Absolute Immature Granulocyte (auto (siomara t code = Absolute Immature Granulocyte (auto) 0.01 0-0.1 [facility] SystemWhite Blood Xodfl8825-59-42 12:47:00* Test Item Value Reference Range Interpretation Comments White Blood Count (test code = 6690-2) 4.38 4.8-10.8 L [facility] SystemRed Blood Tctdm8661-63-32 12:47:00* Test Item Value Reference Range Interpretation Comments Red Blood Count (test code = 789-8) 4.42 3.6-5.1 [facility] SystemHemoglobin2019-11-11 12:47:00* Test Item Value Reference Range Interpretation Comments Hemoglobin (test code = 88142-9) 13.8 12.0-16.0 [facility] SystemHematocrit2019-11-11 12:47:00* Test Item Value Reference Range Interpretation Comments Hematocrit (test code = 4544-3) 41.5 34.2-44.1 [facility] SystemMean Corpuscular Vxchzk8101-20-66 12:47:00* Test Item Value Reference Range Interpretation Comments Mean Corpuscular Volume (test code = 787-2) 93.9 81-99 [facility] SystemMean Corpuscular Iqfbsczivn0845-04-19 12:47:00* Test Item Value Reference Range Interpretation Comments Mean Corpuscular Hemoglobin (test code = 785-6) 31.2 28-32 [facility] SystemMean Corpuscular Hemoglobin Concent 2019-04-07 12:47:00* Test Item Value Reference Range Interpretation Comments Mean Corpuscular Hemoglobin Concent (test code = 786-4) 33.3 31-35 [facility] SystemRed Cell Distribution Dzdel8992-87-16 12:47:00* Test Item Value Reference Range Interpretation Comments Red Cell Distribution Width (test code = 16185-8) 11.7 11.7 -14.4 [facility] SystemPlatelet Wpivi4091-46-19 12:47:00* Test Item Value Reference Range Interpretation Comments Platelet Count (test code = 777-3) 211 140-360 [facility] SystemNeutrophils (%) (Auto)2019-04-07 12:47:00 * Test Item Value Reference Range Interpretation Comments Neutrophils (%) (Auto) (test code = 90218-3) 52.5 38.7-80.0 [facility] SystemLymphocytes (%) (Auto)2019-04-07 12:47:00 * Test Item Value Reference Range Interpretation Comments Lymphocytes (%) (Auto) (test code = 736-9) 35.8 18.0-39.1 [facility] SystemMonocytes (%) (Auto)2019-04-07 12:47:00* Test Item Value Reference Range Interpretation Comments Monocytes (%) (Auto) (test code = 5905-5) 9.4 4.4-11.3 [facility] SystemEosinophils (%) (Auto)2019-04-07 12:47:00 * Test Item Value Reference Range Interpretation Comments Eosinophils (%) (Auto) (test code = 713-8) 1.4 0.0-6.0 [facility] SystemBasophils (%) (Auto)2019-04-07 12:47:00* Test Item Value Reference Range Interpretation Comments Basophils (%) (Auto) (test code = 706-2) 0.7 0.0-1.0 [facility] SystemIM GRANULOCYTES %2019-04-07 12:47:00* Test Item Value Reference Range Interpretation Comments IM GRANULOCYTES % (test code = IM GRANULOCYTES %) 0.2 0.0- 1.0 [facility] SystemNeutrophils # (Auto)2019-04-07 12:47:00* Test Item Value Reference Range Interpretation Comments Neutrophils # (Auto) (test code = 751-8) 2.3 2.1-6.9 [facility] SystemLymphocytes # (Auto)2019-04-07 12:47:00* Test Item Value Reference Range Interpretation Comments Lymphocytes # (Auto) (test code = 00484-4) 1.6 1.0-3.2 [facility] SystemMonocytes # (Auto)2019-04-07 12:47:00* Test Item Value Reference Range Interpretation Comments Monocytes # (Auto) (test code = 742-7) 0.4 0.2-0.8 [facility] SystemEosinophils # (Auto)2019-04-07 12:47:00* Test Item Value Reference Range Interpretation Comments Eosinophils # (Auto) (test code = 711-2) 0.1 0.0-0.4 [facility] SystemBasophils # (Auto)2019-04-07 12:47:00* Test Item Value Reference Range Interpretation Comments Basophils # (Auto) (test code = 704-7) 0.0 0.0-0.1 [facility] SystemAbsolute Immature Granulocyte (auto 2019-04-07 12:47:00* Test Item Value Reference Range Interpretation Comments Absolute Immature Granulocyte (auto (siomara t code = Absolute Immature Granulocyte (auto) 0.01 0-0.1 [facility] SystemBASIC METABOLIC ZISRQ0442-11-08 00:47:00 * Test Item Value Reference Range Interpretation Comments SODIUM (test code = NA) 141 mEq/L 134-147 N POTASSIUM (test code = K) 3.9 mEq/L 3.4-5.0 N CHLORIDE (test code = CL) 108 mEq/L 100-108 N CARBON DIOXIDE (test code = CO2) 22 mEq/L 21-33 N ANION GAP (test code = GAP) 15 0-20 N GLUCOSE (test code = GLU) 110 mg/dL 70-110 N BLOOD UREA NITROGEN (test code = BUN) 22 mg/dL 7-18 H GLOMERULAR FILTRATION RATE (test code = GFR) 61.0 110-120 L Units of measure = ml/min/1.73 m2 CREATININE (test code = CREAT) 1.1 mg/dL 0.6-1.3 N CALCIUM (test code = CA) 9.3 mg/dL 8.0-10.5 N BASIC METABOLIC VJISA5307-72-30 00:44:00* Test Item Value Reference Range Interpretation Comments SODIUM (test code = NA) 141 mEq/L 134-147 N POTASSIUM (test code = K) 3.9 mEq/L 3.4-5.0 N CHLORIDE (test code = CL) 108 mEq/L 100-108 N CARBON DIOXIDE (test code = CO2) 22 mEq/L 21-33 N ANION GAP (test code = GAP) 15 0-20 N GLUCOSE (test code = GLU) 110 mg/dL 70-110 N BLOOD UREA NITROGEN (test code = BUN) 22 mg/dL 7-18 H GLOMERULAR FILTRATION RATE (test code = GFR) 110-120 CREATININE (test code = CREAT) mg/dL 0.6-1.3 CALCIUM (test code = CA) 9.3 mg/dL 8.0-10.5 N UA RFLX MICR CULT IF DOVCOYSTK4615-98-34 00:42:00* Test Item Value Reference Range Interpretation Comments UA COLOR (test code = COLU) YELLOW YEL/STRAW UA APPEARANCE (test code = APPU) SL CLOUDY CLEAR UA GLUCOSE DIPSTICK (test code = DGLUU) NEGATIVE NEGATIVE UA BILIRUBIN DIPSTICK (test code = BILU) NEGATIVE NEGATIVE UA KETONE DIPSTICK (test code = KETU) NEGATIVE NEGATIVE UA SPECIFIC GRAVITY (test code = SGU) 1.014 1.005-1.030 N UA BLOOD DIPSTICK (test code = ANUEL) 3+ NEGATIVE A UA PH DIPSTICK (test code = WOODROW) 7.0 5.0-7.0 N UA PROTEIN DIPSTICK (test code = PROU) NEGATIVE NEGATIVE UA UROBILINIOGEN DIPSTICK (test code = URO) 0.2 mg/dL 0.2-1.0 UA NITRITE DIPSTICK (test code = MAG) NEGATIVE NEGATIVE UA LEUKOCYTE ESTERASE DIPSTICK (test code = LEUU) 3+ NEGA TIVE A UA WBC (test code = WBCU) 21-50 WBC/HPF 0-3 A UA RBC (test code = RBCU) >50 RBC/HPF 0-3 A UA WBC NO REFLEX (test code = WBCUCL) 21-50 WBC/HPF 0-3 A UA BACTERIA (test code = BACU) 3+ /HPF NONE SEEN A UA SQUAMOUS CELLS (test code = SQU) 11-25 /HPF NONE SEEN A UA MUCUS (test code = MUCU) 1+ /LPF NONE SEEN Indication for culture: Flank PainSpecimen Description: CLEAN CATCHUR HCG [id number] 00:41:00* Test Item Value Reference Range Interpretation Comments UR HCG QUAL (test code = HCGQLU) NEGATIVE NEGATIVE TROPONIN-I [id number] 00:38:00* Test Item Value Reference Range Interpretation Comments TROPONIN-I RAPID (test code = TROPIRAP) 0.00 ng/mL 0.00-0.08 N Performed by certified switch house operator at [facility] Negative: <= 0.08 Positive: >= 0.09An elevated troponin value alone is not sufficient todiagnose a myocardial infarction. Rather, the patient sclinical presentation (history, physical exam) and ECGshould be used in conjunction with troponin in thediagnostic evaluation of suspected myocardial infarction. Aserial sampling protocol is recommended to facilitate the identification of temporal changes in troponin levels characteristic of [place]. CBC W/AUTO [id number] 00:36:00* Test Item Value Reference Range Interpretation Comments WHITE BLOOD CELL (test code = WBC) 7.95 x10 3/uL 4.5-11.0 N RED BLOOD CELL (test code = RBC) 4.36 x10 6/uL 3.54-5.02 N HEMOGLOBIN (test code = HGB) 13.7 g/dL 11.0-15.0 N HEMATOCRIT (test code = HCT) 41.8 % 33.0-45.0 N MEAN CELL VOLUME (test code = MCV) 95.9 fL 81.0-99.0 N MEAN CELL HGB (test code = MCH) 31.4 pg 27.0-33.0 N MEAN CELL HGB CONCETRATION (test code = MCHC) 32.8 g/dL 33.0-37. 0 L RED CELL DISTRIBUTION WIDTH CV (test code = RDW) 11.9 % 11.5- 14.5 N RED CELL DISTRIBUTION WIDTH SD (test code = RDW-SD) 41.4 fL 37 .0-54.0 N PLATELET COUNT (test code = PLT) 214 x10 3/uL 150-400 N MEAN PLATELET VOLUME (test code = MPV) 12.2 fL 7.0-9.0 H NEUTROPHIL % (test code = NT%) 62.5 % 56.0-77.0 N IMMATURE GRANULOCYTE % (test code = IG%) 0.3 % 0.0-2.0 N LYMPHOCYTE % (test code = LY%) 26.9 % 14.0-32.0 N MONOCYTE % (test code = MO%) 9.1 % 4.8-9.0 H EOSINOPHIL % (test code = EO%) 0.8 % 0.3-3.7 N BASOPHIL % (test code = BA%) 0.4 % 0.0-2.0 N NUCLEATED RBC % (test code = NRBC%) 0.0 % 0-0 N NEUTROPHIL # (test code = NT#) 4.98 x10 3/uL 2.0-7.6 N IMMATURE GRANULOCYTE # (test code = IG#) 0.02 x10 3/uL 0.00-0.03 N LYMPHOCYTE # (test code = LY#) 2.14 x10 3/uL 1.0-3.8 N MONOCYTE # (test code = MO#) 0.72 x10 3/uL 0.1-0.8 N EOSINOPHIL # (test code = EO#) 0.06 x10 3/uL 0.0-0.2 N BASOPHIL # (test code = BA#) 0.03 x10 3/uL 0.0-0.2 N NUCLEATED RBC # (test code = NRBC#) 0.00 x10 3/uL 0.0-0.1 N MANUAL DIFF REQUIRED (test code = MDIFF) NO - XR CHEST 1 [id number] 23:47:00 FAX: Germán Maddox DO [phone] [place]: St: [facility] FAX: Smooth Grant NP [phone] Name: CAROLINE SONG [facility] : 1995 Age/S: 24/F [address] [place] [address] Blvd Unit #: [id number] Loc: [place] [address] Phys: Smooth Grant NP Acct: [id number] Dis Date: Status: REG ER PHONE #: [phone] Exam Date: 03/31/2019 2337 FAX #: [phone] Reason: SOB, CP EXAMS: CPT CODE: [id number] XR CHEST 1 V [id number] FRONTAL CHEST, 03/31/2019 11:12 PM : HISTORY: SOB, CP. COMPARISON: 06/10/2018 FINDINGS: Heart size and vascularity are within normal limits. The lungs are clear of focal consolidation. No effusion, pneumothorax, or acute osseous abnormality. IMPRESSION: 1. No radiographic evidence of acute cardiopulmonary process. SL: TANIA-H at 8877 Reported and signed by: Ralph Shah M.D. CC: Germán Arreguin DO; Smooth Grant NP Technologist: RT Estrella(Emily) Trnscrd Date/Time/By: 03/31/2019 (3480) : By: [email or web address] Orig Print D/T: S: 03/31/2019 (7484) PAGE 1 Signed Report - HEPA IMAG INCL GB W [id number] 13:25:00 FAX: Germán Maddox DO [phone] [place]: B St: REG Name: CAROLINE LANIER [facility] : [birth year] Age/S: 23/F Ines Mariee Unit #: [id number] Loc: [place] [address] Phys: Germán Arreguin DO Acct: [id number] Dis Date: Status: REG CLI PHONE #: [phone] Exam Date: 02/03/2019 1234 FAX #: [phone] Reason: R10.9 EXAMS: CPT CODE: [id number] HEPA IMAG INCL GB W PHA [id number] HISTORY: R 10.9. COM PARISON: January 30, [...] of 83% at 19 1/2 minutes. at 4278 Reported and signed by: Isiah Tian M.D. CC: Germán Arreguin DO Tech nologist: Veronique Holder RT(N) Trnscrd Date/Ti me/By: 02/03/2019 (2499) : By: [email or web address] Orig Print D/T: S: 02/03/2019 (0484) PAGE 1 Signed Report URINALYSIS [id number] 20:01:00* Test Item Value Reference Range Interpretation Comments UA COLOR (test code = COLU) Light-Yellow YELLOW UA APPEARANCE (test code = APPU) CLEAR CLEAR UA GLUCOSE DIPSTICK (test code = DGLUU) NEGATIVE mg/dL NEGATIVE UA BILIRUBIN DIPSTICK (test code = BILU) NEGATIVE mg/dL NEGATIVE UA KETONE DIPSTICK (test code = KETU) NEGATIVE mg/dL NEGATIVE UA SPECIFIC GRAVITY (test code = SGU) 1.015 1.001-1.035 UA BLOOD DIPSTICK (test code = ANUEL) Negative mg/dL NEGATIVE UA PH DIPSTICK (test code = WOODROW) 8.0 5.0-8.0 UA PROTEIN DIPSTICK (test code = PROU) NEGATIVE mg/dL NEGATIVE UA UROBILINIOGEN DIPSTICK (test code = URO) Normal mg/dL NEGATIVE UA NITRITE DIPSTICK (test code = MAG) NEGATIVE NEGATIVE UA LEUKOCYTE ESTERASE W REFLEX (test code = LEUUR) NEGATIVE Radha/uL NEGATIVE UA WBC (test code = WBCU) 6-10 per HPF 0-5 A UA RBC (test code = RBCU) 3-5 #/HPF 0-5 UA EPITHELIAL CELLS (test code = EPIU) FEW per HPF FEW UA BACTERIA (test code = BACU) FEW #/HPF NONE A UA MUCUS (test code = MUCU) FEW #/LPF FEW Urine Source? Clean CatchURINALYSIS [id number] 19:57:00* Test Item Value Reference Range Interpretation Comments UA COLOR (test code = COLU) Light-Yellow YELLOW UA APPEARANCE (test code = APPU) CLEAR CLEAR UA GLUCOSE DIPSTICK (test code = DGLUU) NEGATIVE mg/dL NEGATIVE UA BILIRUBIN DIPSTICK (test code = BILU) NEGATIVE mg/dL NEGATIVE UA KETONE DIPSTICK (test code = KETU) NEGATIVE mg/dL NEGATIVE UA SPECIFIC GRAVITY (test code = SGU) 1.015 1.001-1.035 UA BLOOD DIPSTICK (test code = ANUEL) Negative mg/dL NEGATIVE UA PH DIPSTICK (test code = WOODROW) 8.0 5.0-8.0 UA PROTEIN DIPSTICK (test code = PROU) NEGATIVE mg/dL NEGATIVE UA UROBILINIOGEN DIPSTICK (test code = URO) Normal mg/dL NEGATIVE UA NITRITE DIPSTICK (test code = MAG) NEGATIVE NEGATIVE UA LEUKOCYTE ESTERASE W REFLEX (test code = LEUUR) NEGATIVE Radha/uL NEGATIVE UA WBC (test code = WBCU) per HPF 0-5 UA RBC (test code = RBCU) per HPF 0-5 UA EPITHELIAL CELLS (test code = EPIU) per HPF Few UA BACTERIA (test code = BACU) per HPF NONE Urine Source? Clean Catch- CT ABD PELVIS W/O [id number] 18:06:00 Name: CAROLINE SONG [facility] : 1995 Age/S: 23 / F [address] Unit #: [id number] Loc: [place] [address] Phys: Evan Marina dane D ASSIGNMENT OFFICER Acct: [id number] Di s Date: Status: REG ER PHONE #: [phone] Exam Date: 01/30/20191732 FAX #: [phone] Reason: FLANK PAIN EXAMS: CPT CODE: [id number] CT ABD PELVIS W/O CONT 29651 HISTORY: Flank pain. COMPARISON: CT scan from [...] 1 Signed Report (CONTINUED) Name: CAROLINE SONG [facility] : 1995 Age/S: 23 / F In[place] Mariee Unit #: [id number] Loc: [place] [address] Phys: SalasJohnathan Joseph ASSIGNMENT OFFICER Acct: [id number] Dis Date: Status: REG ER PHONE #: [phone] Exam Date: 2018 173 FAX #: [phone] Reason: FLANK PAIN EXAMS: CPT CODE: [id number] CT ABD PELVIS W/O CONT 93987 <Continued> at 1806 Reported and signed by: Isiah Tian M.D. CC: Germán Arreguin DO; Johnathan Marina NP Technologist:Edith Shin RT(R),CT; CTDI: DLP: Trnscb Date/Time: 01/30/2019 (1805) [email or web address] Orig Print D/T: S: 01/30/2019 (1808) PAGE 2 Signed Report BASIC METABOLIC [id number] 17:11:00* Test Item Value Reference Range Interpretation Comments SODIUM (test code = NA) 142 mmol/L 136-145 N POTASSIUM (test code = K) 4.0 mmol/L 3.5-5.1 N CHLORIDE (test code = CL) 111.0 mmol/L 98-107 H CARBON DIOXIDE (test code = CO2) 23.0 mmol/L 21-32 N ANION GAP (test code = GAP) 12.0 10-20 N GLUCOSE (test code = GLU) 102 mg/dL 74-106 N BLOOD UREA NITROGEN (test code = BUN) 9 mg/dL 7-18 N GLOMERULAR FILTRATION RATE (test code = GFR) > 60 mL/min >=60 Estimated GFR by using Modified MDRD formula.Chronic kidney disease is defined as either kidney damageor GFR <60 mL/min/1.73 m2 for >3 months. CREATININE (test code = CREAT) 0.90 mg/dL 0.55-1.02 N Note change in reference range due to change in reagent. BUN/CREATININE RATIO (test code = BUN/CREA) 10.4 10-20 N CALCIUM (test code = CA) 9.6 mg/dL 8.5-10.1 N HEPATIC FUNCTION [id number] 17:11:00* Test Item Value Reference Range Interpretation Comments TOTAL PROTEIN (test code = PROT) 7.4 gram/dL 6.4-8.2 N ALBUMIN (test code = ALB) 3.8 g/dL 3.4-5.0 N GLOBULIN (test code = GLOB) 3.6 gram/dL 2.7-4.2 N ALBUMIN/GLOBULIN RATIO (test code = A/G) 1.1 0.75-1.50 N BILIRUBIN TOTAL (test code = BILT) 0.30 mg/dL 0.0-1.0 N BILIRUBIN DIRECT (test code = BILD) 0.10 mg/dL 0.0-0.20 N SGOT/AST (test code = AST) 42 IUnit/L 15-37 H SGPT/ALT (test code = ALT) 121 IUnit/L 12-78 H ALKALINE PHOSPHATASE TOTAL (test code = ALKP) 85 IUnit/L 45-117 N Note change in reference range due to change in reagent. [id number] 17:11:00* Test Item Value Reference Range Interpretation Comments LIPASE (test code = LIP) 70 U/L 73.0-393.0 L HCG SERUM [id number] 17:11:00* Test Item Value Reference Range Interpretation Comments HCG SERUM QUAL (test code = HCGQL) NEGATIVE NEGATIVE This HCGQL test is NOT applicable for MALE patients.Check with nurse about probable order error.If Tumor Marker Test needed, nurse should order test "HCGTU"(Test #550.28078) BASIC METABOLIC [id number] 17:06:00* Test Item Value Reference Range Interpretation Comments SODIUM (test code = NA) 142 mmol/L 136-145 N POTASSIUM (test code = K) 4.0 mmol/L 3.5-5.1 N CHLORIDE (test code = CL) 111.0 mmol/L 98-107 H CARBON DIOXIDE (test code = CO2) mmol/L 21-32 ANION GAP (test code = GAP) 10-20 GLUCOSE (test code = GLU) mg/dL 74-106 BLOOD UREA NITROGEN (test code = BUN) mg/dL 7-18 GLOMERULAR FILTRATION RATE (test code = GFR) mL/min >=60 CREATININE (test code = CREAT) mg/dL 0.55-1.02 BUN/CREATININE RATIO (test code = BUN/CREA) 10-20 CALCIUM (test code = CA) mg/dL 8.5-10.1 HEPATIC FUNCTION [id number] 17:06:00* Test Item Value Reference Range Interpretation Comments TOTAL PROTEIN (test code = PROT) gram/dL 6.4-8.2 ALBUMIN (test code = ALB) g/dL 3.4-5.0 GLOBULIN (test code = GLOB) gram/dL 2.7-4.2 ALBUMIN/GLOBULIN RATIO (test code = A/G) 0.75-1.50 BILIRUBIN TOTAL (test code = BILT) mg/dL 0.0-1.0 BILIRUBIN DIRECT (test code = BILD) mg/dL 0.0-0.20 SGOT/AST (test code = AST) IUnit/L 15-37 SGPT/ALT (test code = ALT) IUnit/L 12-78 ALKALINE PHOSPHATASE TOTAL (test code = ALKP) IUnit/L 45-117 [id number] 17:06:00* Test Item Value Reference Range Interpretation Comments LIPASE (test code = LIP) U/L 73.0-393.0 HCG SERUM [id number] 17:06:00* Test Item Value Reference Range Interpretation Comments HCG SERUM QUAL (test code = HCGQL) NEGATIVE NEGATIVE This HCGQL test is NOT applicable for MALE patients.Check with nurse about probable order error.If Tumor Marker Test needed, nurse should order test "HCGTU"(Test #550.20378) BASIC METABOLIC [id number] 16:59:00* Test Item Value Reference Range Interpretation Comments SODIUM (test code = NA) 142 mmol/L 136-145 N POTASSIUM (test code = K) 4.0 mmol/L 3.5-5.1 N CHLORIDE (test code = CL) 111.0 mmol/L 98-107 H CARBON DIOXIDE (test code = CO2) mmol/L 21-32 ANION GAP (test code = GAP) 10-20 GLUCOSE (test code = GLU) mg/dL 74-106 BLOOD UREA NITROGEN (test code = BUN) mg/dL 7-18 GLOMERULAR FILTRATION RATE (test code = GFR) mL/min >=60 CREATININE (test code = CREAT) mg/dL 0.55-1.02 BUN/CREATININE RATIO (test code = BUN/CREA) 10-20 CALCIUM (test code = CA) mg/dL 8.5-10.1 HEPATIC FUNCTION [id number] 16:59:00* Test Item Value Reference Range Interpretation Comments TOTAL PROTEIN (test code = PROT) gram/dL 6.4-8.2 ALBUMIN (test code = ALB) g/dL 3.4-5.0 GLOBULIN (test code = GLOB) gram/dL 2.7-4.2 ALBUMIN/GLOBULIN RATIO (test code = A/G) 0.75-1.50 BILIRUBIN TOTAL (test code = BILT) mg/dL 0.0-1.0 BILIRUBIN DIRECT (test code = BILD) mg/dL 0.0-0.20 SGOT/AST (test code = AST) IUnit/L 15-37 SGPT/ALT (test code = ALT) IUnit/L 12-78 ALKALINE PHOSPHATASE TOTAL (test code = ALKP) IUnit/L 45-117 [id number] 16:59:00* Test Item Value Reference Range Interpretation Comments LIPASE (test code = LIP) U/L 73.0-393.0 HCG SERUM [id number] 16:59:00* Test Item Value Reference Range Interpretation Comments HCG SERUM QUAL (test code = HCGQL) NEGATIVE CBC W/O [id number] 16:45:00* Test Item Value Reference Range Interpretation Comments WHITE BLOOD CELL (test code = WBC) 6.2 K/mm3 4.5-12.5 N RED BLOOD CELL (test code = RBC) 4.21 mill/mm3 3.7-5.2 N HEMOGLOBIN (test code = HGB) 12.9 gram/dL 11.5-15.5 N HEMATOCRIT (test code = HCT) 38.5 % 36.0-46.0 N MEAN CELL VOLUME (test code = MCV) 91.4 fL 80-98 N MEAN CELL HGB (test code = MCH) 30.6 picogram 27.0-33.0 N MEAN CELL HGB CONCETRATION (test code = MCHC) 33.5 gram/dL 33.0-36. 0 N RED CELL DISTRIBUTION WIDTH (test code = RDW) 12.1 % 11.6-16. 2 N PLATELET COUNT (test code = PLT) 213 K/mm3 150-450 N MEAN PLATELET VOLUME (test code = MPV) 11.0 fL 6.7-11.0 N CBC W/O [id number] 16:44:00* Test Item Value Reference Range Interpretation Comments WHITE BLOOD CELL (test code = WBC) K/mm3 4.5-12.5 RED BLOOD CELL (test code = RBC) mill/mm3 3.7-5.2 HEMOGLOBIN (test code = HGB) 12.9 gram/dL 11.5-15.5 N HEMATOCRIT (test code = HCT) 38.5 % 36.0-46.0 N MEAN CELL VOLUME (test code = MCV) fL 80-98 MEAN CELL HGB (test code = MCH) picogram 27.0-33.0 MEAN CELL HGB CONCETRATION (test code = MCHC) gram/dL 33.0-36. 0 RED CELL DISTRIBUTION WIDTH (test code = RDW) % 11.6-16. 2 PLATELET COUNT (test code = PLT) K/mm3 150-450 MEAN PLATELET VOLUME (test code = MPV) fL 6.7-11.0 - US ABDOMEN [id number] 01:05:00 Name: CAROLINE SONG [facility] : 1995 Age/S: 23 / F [address] [place] [address] Unit #: [id number] Loc: [place] [address] Phys: Shashi Norris MD Acct: [id number] Dis Date: Status: REG ER PHONE #: [phone] Exam Date: 01/03/2019 0026 FAX #: [phone] Reason: abdominal pain EXAMS: CPT CODE: [id number] US ABDOMEN COMPLETE 23761 PROCEDURE: ABDOMINAL ULTRASOUND DATED 01/03/2019 INDICATION: Acute [...] 1 Signed Report (CONTINUED) Name: Thai SONG [facility] : 1995 Age/ S: 23 / [address] [place] [address] Unit #: [id number] Loc: [place] [address] Phys: Shashi Norris MD Acct: [id number] Dis Date: Status: REG ER PHONE #: [phone] Exam Date: 01/03/2019 0026 FAX #: [phone] Reason: abdominal pain EXAMS: CPT CODE: [id number] US ABDOMEN COMPLETE 96515 <Continued> at 0105 Reported and signed by: José Inman M.D. CC: Germán Arreguin DO; Shashi Norris MD Technologist: Maricel Blackmon RDMS(A) Trnscb Date/Time: 01/04/2019 (104) Marcio Orig Print D/T: S: 01/04/2019 (107) Probe: PAGE 2 Signed Report - DUP AO/IVC/IV/BPG [id number] 01:05:00 Name: CAROLINE SONG [facility] : 1995 Age/S: 23 / F [address] [place] [address] Unit #: [id number] Loc: [place] [address] Phys: Shashi Norris MD Acct: [id number] Dis Date: Status: REG ER PHONE #: [phone] Exam Date: 01/03/2019 0026 FAX #: [phone] Reason: ABDOMINAL PAIN EXAMS: CPT CODE: [id number] DUP AO/IVC/IV/BPG LTD 28123 PROCEDURE: ABDOMINAL ULTRASOUND DATED 01/03/2019 INDICATION: Acute [...] 1 Signed Report (CONTINUED) Name: Thai SONG [facility] : 1995 Age/ S: 23 / F [address] [place] [address] Unit #: [id number] Loc: [place] [address] Phys: Shashi Norris MD Acct: [id number] Dis Date: Status: REG ER PHONE #: [phone] Exam Date: 01/03/2019 0026 FAX #: [phone] Reason: ABDOMINAL PAIN EXAMS: CPT CODE: [id number] DUP AO/IVC/IV/BPG LTD 64073 <Continued> at 0105 Reported and signed by: José Inman M.D. CC: Gremán Arreguin DO; Shashi Norris MD Technologist: Maricel Blackmon RDMS(A) Trnscb Date/Time: 01/04/2019 (010) [email or web address] Orig Print D/T: S: 01/04/2019 (010) Probe: PAGE 2 Signed Report URINALYSIS [id number] 23:05:00* Test Item Value Reference Range Interpretation Comments UA COLOR (test code = COLU) LESLIE YEL/STRAW A UA APPEARANCE (test code = APPU) CLOUDY CLEAR A UA GLUCOSE DIPSTICK (test code = DGLUU) NEGATIVE NEGATIVE UA BILIRUBIN DIPSTICK (test code = BILU) NEGATIVE NEGATIVE UA KETONE DIPSTICK (test code = KETU) NEGATIVE NEGATIVE UA SPECIFIC GRAVITY (test code = SGU) 1.024 1.005-1.030 N UA BLOOD DIPSTICK (test code = ANUEL) 3+ NEGATIVE A UA PH DIPSTICK (test code = WOODROW) 5.0 5.0-7.0 N UA PROTEIN DIPSTICK (test code = PROU) 2+ NEGATIVE A UA UROBILINIOGEN DIPSTICK (test code = URO) 0.2 mg/dL 0.2-1.0 UA NITRITE DIPSTICK (test code = MAG) NEGATIVE NEGATIVE UA LEUKOCYTE ESTERASE DIPSTICK (test code = LEUU) 3+ NEGA TIVE A UA WBC (test code = WBCU) >50 WBC/HPF 0-3 A UA RBC (test code = RBCU) >50 RBC/HPF 0-3 A UA BACTERIA (test code = BACU) 3+ /HPF NONE SEEN A UA SQUAMOUS CELLS (test code = SQU) 11-25 /HPF NONE SEEN A UA MUCUS (test code = MUCU) TRACE /LPF NONE SEEN UR HCG [id number] 23:01:00* Test Item Value Reference Range Interpretation Comments UR HCG QUAL (test code = HCGQLU) NEGATIVE NEGATIVE - XR FOOT 2 VIEWS [id number] 13:02:00 FAX: Y Germán Arreguin DO [phone] [place]: O St: REG Name: CAROLINE LANIER [facility] : [birth year] Age/S: 23/F [address] [facility] Unit #: [id number] Loc: [place] [address] Phys: Germán Arreguin DO Acct: [id number] Dis Date: Status: REG CLI PHONE #: [phone] Exam Date: 12/30/2018 1210 FAX #: [phone] Reason: M79.671 EXAMS: CPT CODE: [id number] XR FO[place] [address] [place] [address] CLINICAL HISTORY: M79.671 TECHNIQUE: AP, oblique, and [...] Mckinnon MD CC: Germán Arreguin DO Technologist: RT Denae(Emily) Trnscrd Date/Time/By: 12/30/2018 (8362) : By: AshutoshRR31 Orig Print D/T: S: 12/30/2018 (4113) PAGE 1 Signed Report COMPREHENSIVE METABOLIC [id number] 22:19:00* Test Item Value Reference Range Interpretation Comments SODIUM (test code = NA) 140 mEq/L 134-147 N POTASSIUM (test code = K) 3.8 mEq/L 3.4-5.0 N CHLORIDE (test code = CL) 107 mEq/L 100-108 N CARBON DIOXIDE (test code = CO2) 27 mEq/L 21-33 N ANION GAP (test code = GAP) 10 0-20 N GLUCOSE (test code = GLU) 99 mg/dL 70-110 N BLOOD UREA NITROGEN (test code = BUN) 14 mg/dL 7-18 N GLOMERULAR FILTRATION RATE (test code = GFR) 88.9 110-120 L Units of measure = ml/min/1.73 m2 CREATININE (test code = CREAT) 0.8 mg/dL 0.6-1.3 N TOTAL PROTEIN (test code = PROT) 7.3 g/dL 6.4-8.2 N ALBUMIN (test code = ALB) 3.60 g/dL 3.4-5.0 N CALCIUM (test code = CA) 8.9 mg/dL 8.0-10.5 N BILIRUBIN TOTAL (test code = BILT) 0.20 mg/dL 0.0-1.0 N SGOT/AST (test code = AST) 49 IUnit/L 15-37 H SGPT/ALT (test code = ALT) 110 IUnit/L 15-65 H ALKALINE PHOSPHATASE TOTAL (test code = ALKP) 79 IUnit/L 20-125 N [id number] 22:19:00* Test Item Value Reference Range Interpretation Comments LIPASE (test code = LIP) 115 IUnit/L 73-393 N HCG SERUM [id number] 22:19:00* Test Item Value Reference Range Interpretation Comments HCG SERUM QUAL (test code = HCGQL) SERUM NEGATIVE NEGATIVE - CT ABD PELVIS W/O [id number] 21:58:00 Name: CAROLINE SONG [facility] : 1995 Age/S: 23 / F [address] [place] [address] Bl Unit #: [id number] Loc: [place] [address] Phys: Brenden Rodriguez MD Acct: [id number] Dis Date: Status: REG ER PHONE #: [phone] Exam Date: 11/30/20182120 FAX #: [phone] Reason: right flank pain, right upper abdominal pain EXAMS: CPT CODE: [id number] CT ABD PELVIS W/O CONT 94625 CT ABDOMEN AND PELVIS WITHOUT CONTRAST INDICATION: [...] hadenopathy. PAGE 1 Signed Report (CONTINUED) Name: CARLOINE SONG [facility] : 1995 Age/S: 23 / F [address] [place] [address] Unit #: [id number] Loc: [place] [address] Phys : Brenden Rodriguez MD Acct: [id number] Dis Date: Status: REG ER PHONE #: [phone] Exam Date: 11/30/20182120 FAX #: [phone] Reason: right flank pain, right upper abdominal pain EXAMS: CPT CODE: [id number] CT ABD PELVIS W/O CONT 37408 <Continued> There is no intra-abdominal free gas. [...] CC: Germán Arreguin DO; Brenden Rodriguez MD Technologist:RT Marybel(R)(CT) CTDI: DLP: T rnscb Date/Time: 11/30/2018 (2157) [email or web address] Orig Print D /T: S: 11/30/2018 (2200) PAGE 2 Signed Report COMPREHENSIVE METABOLIC [id number] 21:30:00* Test Item Value Reference Range Interpretation Comments SODIUM (test code = NA) 140 mEq/L 134-147 N POTASSIUM (test code = K) 3.8 mEq/L 3.4-5.0 N CHLORIDE (test code = CL) 107 mEq/L 100-108 N CARBON DIOXIDE (test code = CO2) 27 mEq/L 21-33 N ANION GAP (test code = GAP) 10 0-20 N GLUCOSE (test code = GLU) 99 mg/dL 70-110 N BLOOD UREA NITROGEN (test code = BUN) 14 mg/dL 7-18 N GLOMERULAR FILTRATION RATE (test code = GFR) 88.9 110-120 L Units of measure = ml/min/1.73 m2 CREATININE (test code = CREAT) 0.8 mg/dL 0.6-1.3 N TOTAL PROTEIN (test code = PROT) 7.3 g/dL 6.4-8.2 N ALBUMIN (test code = ALB) 3.60 g/dL 3.4-5.0 N CALCIUM (test code = CA) 8.9 mg/dL 8.0-10.5 N BILIRUBIN TOTAL (test code = BILT) 0.20 mg/dL 0.0-1.0 N SGOT/AST (test code = AST) 49 IUnit/L 15-37 H SGPT/ALT (test code = ALT) 110 IUnit/L 15-65 H ALKALINE PHOSPHATASE TOTAL (test code = ALKP) 79 IUnit/L 20-125 N [id number] 21:30:00* Test Item Value Reference Range Interpretation Comments LIPASE (test code = LIP) 115 IUnit/L 73-393 N HCG SERUM [id number] 21:30:00* Test Item Value Reference Range Interpretation Comments HCG SERUM QUAL (test code = HCGQL) NEGATIVE LACTIC [id number] 21:29:00* Test Item Value Reference Range Interpretation Comments LACTIC ACID (test code = LACT) 1.7 mmol/L 0.4-1.9 N COMPREHENSIVE METABOLIC [id number] 21:28:00* Test Item Value Reference Range Interpretation Comments SODIUM (test code = NA) 140 mEq/L 134-147 N POTASSIUM (test code = K) 3.8 mEq/L 3.4-5.0 N CHLORIDE (test code = CL) 107 mEq/L 100-108 N CARBON DIOXIDE (test code = CO2) 27 mEq/L 21-33 N ANION GAP (test code = GAP) 10 0-20 N GLUCOSE (test code = GLU) 99 mg/dL 70-110 N BLOOD UREA NITROGEN (test code = BUN) 14 mg/dL 7-18 N GLOMERULAR FILTRATION RATE (test code = GFR) 88.9 110-120 L Units of measure = ml/min/1.73 m2 CREATININE (test code = CREAT) 0.8 mg/dL 0.6-1.3 N TOTAL PROTEIN (test code = PROT) g/dL 6.4-8.2 ALBUMIN (test code = ALB) 3.60 g/dL 3.4-5.0 N CALCIUM (test code = CA) 8.9 mg/dL 8.0-10.5 N BILIRUBIN TOTAL (test code = BILT) mg/dL 0.0-1.0 SGOT/AST (test code = AST) 49 IUnit/L 15-37 H SGPT/ALT (test code = ALT) 110 IUnit/L 15-65 H ALKALINE PHOSPHATASE TOTAL (test code = ALKP) IUnit/L 20-125 [id number] 21:28:00* Test Item Value Reference Range Interpretation Comments LIPASE (test code = LIP) 115 IUnit/L 73-393 N HCG SERUM [id number] 21:28:00* Test Item Value Reference Range Interpretation Comments HCG SERUM QUAL (test code = HCGQL) NEGATIVE - US ABDOMEN [id number] 21:27:00 Name: CAROLINE SONG [facility] : 1995 Age/S: 23 / F [address] [place] [address] Unit #: [id number] Loc: [place] [address] Phys: Brenden Rodriguez MD Acct: [id number] Dis Date: Status: REG ER PHONE #: [phone] Exam Date: 11/30/20182121 FAX #: [phone] Reason: Abdominal Pain EXAMS: CPT CODE: [id number] US ABDOMEN LTD 17318 PROCEDURE: RUQ U/S CLINICAL INDICATION: Nausea, vomiting, [...] Cele Peña RDMS(A)(OB) Trnscb Date/Time: 11/30/2018 (2126) Aimee Orig Print D/T: S: 11/30/2018 (2129) Probe: PAGE 1 Signed Report PROTHROMBIN [id number] 21:21:00* Test Item Value Reference Range Interpretation Comments PROTHROMBIN TIME PATIENT (test code = PTP) 12.0 SECONDS 9.3-12.9 N INTERNATIONAL NORMAL RATIO (test code = INR) 1.1 0.8-1.2 N TARGET INR BY INDICATION Indication INR1. Prophylaxis [...] Infarction (to prevent recurrent infarct). THROMBOPLASTIN TIME [id number] 21:21:00* Test Item Value Reference Range Interpretation Comments THROMBOPLASTIN TIME PARTIAL (test code = PTT) 34.9 Seconds 25.0-39. 5 N Therapeutic Range: 50.4 - 88.3 Seconds Effective 09/10/2018 URINALYSIS [id number] 21:20:00* Test Item Value Reference Range Interpretation Comments UA COLOR (test code = COLU) YELLOW YEL/STRAW UA APPEARANCE (test code = APPU) CLEAR CLEAR UA GLUCOSE DIPSTICK (test code = DGLUU) NEGATIVE NEGATIVE UA BILIRUBIN DIPSTICK (test code = BILU) NEGATIVE NEGATIVE UA KETONE DIPSTICK (test code = KETU) NEGATIVE NEGATIVE UA SPECIFIC GRAVITY (test code = SGU) 1.014 1.005-1.030 N UA BLOOD DIPSTICK (test code = ANUEL) NEGATIVE NEGATIVE UA PH DIPSTICK (test code = WOODROW) 7.0 5.0-7.0 N UA PROTEIN DIPSTICK (test code = PROU) NEGATIVE NEGATIVE UA UROBILINIOGEN DIPSTICK (test code = URO) 0.2 mg/dL 0.2-1.0 UA NITRITE DIPSTICK (test code = MAG) NEGATIVE NEGATIVE UA LEUKOCYTE ESTERASE DIPSTICK (test code = LEUU) NEGATIVE NEGA TIVE UA WBC (test code = WBCU) 0-3 WBC/HPF 0-3 UA RBC (test code = RBCU) 4-10 RBC/HPF 0-3 UA BACTERIA (test code = BACU) NONE SEEN /HPF NONE SEEN UA SQUAMOUS CELLS (test code = SQU) 0-5 /HPF NONE SEEN UA MUCUS (test code = MUCU) TRACE /LPF NONE SEEN COMMENTS: Clean CatchCBC W/AUTO [id number] 21:06:00* Test Item Value Reference Range Interpretation Comments WHITE BLOOD CELL (test code = WBC) 6.41 x10 3/uL 4.5-11.0 N RED BLOOD CELL (test code = RBC) 4.34 x10 6/uL 3.54-5.02 N HEMOGLOBIN (test code = HGB) 13.6 g/dL 11.0-15.0 N HEMATOCRIT (test code = HCT) 39.8 % 33.0-45.0 N MEAN CELL VOLUME (test code = MCV) 91.7 fL 81.0-99.0 N MEAN CELL HGB (test code = MCH) 31.3 pg 27.0-33.0 N MEAN CELL HGB CONCETRATION (test code = MCHC) 34.2 g/dL 33.0-37. 0 N RED CELL DISTRIBUTION WIDTH CV (test code = RDW) 11.9 % 11.5- 14.5 N RED CELL DISTRIBUTION WIDTH SD (test code = RDW-SD) 39.6 fL 37 .0-54.0 N PLATELET COUNT (test code = PLT) 234 x10 3/uL 150-400 N MEAN PLATELET VOLUME (test code = MPV) 10.8 fL 7.0-9.0 H NEUTROPHIL % (test code = NT%) 61.2 % 56.0-77.0 N IMMATURE GRANULOCYTE % (test code = IG%) 0.2 % 0.0-2.0 N LYMPHOCYTE % (test code = LY%) 29.2 % 14.0-32.0 N MONOCYTE % (test code = MO%) 8.0 % 4.8-9.0 N EOSINOPHIL % (test code = EO%) 0.9 % 0.3-3.7 N BASOPHIL % (test code = BA%) 0.5 % 0.0-2.0 N NUCLEATED RBC % (test code = NRBC%) 0.0 % 0-0 N NEUTROPHIL # (test code = NT#) 3.93 x10 3/uL 2.0-7.6 N IMMATURE GRANULOCYTE # (test code = IG#) 0.01 x10 3/uL 0.00-0.03 N LYMPHOCYTE # (test code = LY#) 1.87 x10 3/uL 1.0-3.8 N MONOCYTE # (test code = MO#) 0.51 x10 3/uL 0.1-0.8 N EOSINOPHIL # (test code = EO#) 0.06 x10 3/uL 0.0-0.2 N BASOPHIL # (test code = BA#) 0.03 x10 3/uL 0.0-0.2 N NUCLEATED RBC # (test code = NRBC#) 0.00 x10 3/uL 0.0-0.1 N MANUAL DIFF REQUIRED (test code = MDIFF) NO - CT ABD PELVIS W/O [id number] 00:02:00 Name: CAROLINE SONG [facility] : 1995 Age/S: 23 / F [address] [place] [address] Unit #: [id number] Loc: [place] [address] Phys: Smooth Grant ASSIGNMENT OFFICER Acct: [id number] Dis Date: Status: REG ER PHONE #: [phone] Exam Date: 09/20/2018 2326 FAX #: [phone] Reason: Flank pain, hematuria, dysuria, hx of staghorn EXAMS: CPT CODE: [id number] CT ABD PELVIS W/O CONT 16393 EXAM: CT, CT ABDOMEN PELVIS W/O CONTRAST: [...] dose. Oral contrast: None. CT Radiation Dose: DLP = 717.30 mGy-cm FINDINGS: This examination is limited for [...] There is no abnormal ureter dilation. Ureters li chandra junctions are unremarkable.. NON-CONTRAST OPACI FIED STOMACH AND BOWEL: STOMACH: Unremarkable. BOWEL: The non-contra st opacified small bowel loops in the abdomen and pelvis appear unremarkab le. The noncontrast opacified colonic loops in the abdomen and pelvis appe ar unremarkable. APPENDIX: Not well seen on the exam. PAGE 1 Signed Report (CONTINUED) Name: GIRISH SONG [facility] : 1995 Age/S: 23 / F [address] [place] [address] Unit #: [id number] Loc: [place] [address] Phys: Smooth Grant NP Acct: [id number] Dis Date: Status: REG ER PHONE #: [phone] Exam Date: 09/20/2018 2326 FAX #: [phone] Reason: Fla nk pain, hematuria, dysuria, hx of staghorn EXAMS: CPT CODE: [id number] CT ABD PELVIS W/O CONT 99571 <Continued> The lack of orally administered contrast [...] steatosis 4. Small fat-containing umbilical hernia. SL: [email or web address] at 0002 Reported and signed by: Ryan White M.D. CC: Germán Arreguin DO; Smooth Grant NP Technologist:RT Eligio(R)(CT) CTDI: DLP: Trnscb Date/Time: 09/21/2018 (0002) [email or web address] Orig Print D/T: S: 09/21/2018 (0006) CTDI: DLP: PAGE 2 Signed Report BASIC METABOLIC [id number] 21:31:00* Test Item Value Reference Range Interpretation Comments SODIUM (test code = NA) 141 mEq/L 134-147 N POTASSIUM (test code = K) 3.8 mEq/L 3.4-5.0 N CHLORIDE (test code = CL) 107 mEq/L 100-108 N CARBON DIOXIDE (test code = CO2) 29 mEq/L 21-33 N ANION GAP (test code = GAP) 9 0-20 N GLUCOSE (test code = GLU) 98 mg/dL 70-110 N BLOOD UREA NITROGEN (test code = BUN) 15 mg/dL 7-18 N GLOMERULAR FILTRATION RATE (test code = GFR) 77.6 110-120 L Units of measure = ml/min/1.73 m2 CREATININE (test code = CREAT) 0.9 mg/dL 0.6-1.3 N CALCIUM (test code = CA) 9.0 mg/dL 8.0-10.5 N HEPATIC FUNCTION [id number] 21:31:00* Test Item Value Reference Range Interpretation Comments TOTAL PROTEIN (test code = PROT) 7.8 g/dL 6.4-8.2 N ALBUMIN (test code = ALB) 4.00 g/dL 3.4-5.0 N BILIRUBIN TOTAL (test code = BILT) 0.20 mg/dL 0.0-1.0 N BILIRUBIN DIRECT (test code = BILD) < 0.10 MG/DL 0.0-0.30 N BILIRUBIN INDIRECT (test code = BILIND) 0.10 MG/DL SGOT/AST (test code = AST) 21 IUnit/L 15-37 N SGPT/ALT (test code = ALT) 51 IUnit/L 15-65 N ALKALINE PHOSPHATASE TOTAL (test code = ALKP) 83 IUnit/L 20-125 N [id number] 21:31:00* Test Item Value Reference Range Interpretation Comments LIPASE (test code = LIP) 261 IUnit/L 73-393 N BASIC METABOLIC [id number] 21:26:00* Test Item Value Reference Range Interpretation Comments SODIUM (test code = NA) 141 mEq/L 134-147 N POTASSIUM (test code = K) 3.8 mEq/L 3.4-5.0 N CHLORIDE (test code = CL) 107 mEq/L 100-108 N CARBON DIOXIDE (test code = CO2) 29 mEq/L 21-33 N ANION GAP (test code = GAP) 9 0-20 N GLUCOSE (test code = GLU) 98 mg/dL 70-110 N BLOOD UREA NITROGEN (test code = BUN) 15 mg/dL 7-18 N GLOMERULAR FILTRATION RATE (test code = GFR) 77.6 110-120 L Units of measure = ml/min/1.73 m2 CREATININE (test code = CREAT) 0.9 mg/dL 0.6-1.3 N CALCIUM (test code = CA) 9.0 mg/dL 8.0-10.5 N HEPATIC FUNCTION [id number] 21:26:00* Test Item Value Reference Range Interpretation Comments TOTAL PROTEIN (test code = PROT) g/dL 6.4-8.2 ALBUMIN (test code = ALB) 4.00 g/dL 3.4-5.0 N BILIRUBIN TOTAL (test code = BILT) mg/dL 0.0-1.0 BILIRUBIN DIRECT (test code = BILD) < 0.10 MG/DL 0.0-0.30 N SGOT/AST (test code = AST) 21 IUnit/L 15-37 N SGPT/ALT (test code = ALT) 51 IUnit/L 15-65 N ALKALINE PHOSPHATASE TOTAL (test code = ALKP) IUnit/L 20-125 [id number] 21:26:00* Test Item Value Reference Range Interpretation Comments LIPASE (test code = LIP) 261 IUnit/L 73-393 N URINALYSIS [id number] 21:19:00* Test Item Value Reference Range Interpretation Comments UA COLOR (test code = COLU) YELLOW YEL/STRAW UA APPEARANCE (test code = APPU) CLEAR CLEAR UA GLUCOSE DIPSTICK (test code = DGLUU) NEGATIVE NEGATIVE UA BILIRUBIN DIPSTICK (test code = BILU) NEGATIVE NEGATIVE UA KETONE DIPSTICK (test code = KETU) NEGATIVE NEGATIVE UA SPECIFIC GRAVITY (test code = SGU) 1.018 1.005-1.030 N UA BLOOD DIPSTICK (test code = ANUEL) 2+ NEGATIVE A UA PH DIPSTICK (test code = WOODROW) 6.0 5.0-7.0 N UA PROTEIN DIPSTICK (test code = PROU) NEGATIVE NEGATIVE UA UROBILINIOGEN DIPSTICK (test code = URO) 0.2 mg/dL 0.2-1.0 UA NITRITE DIPSTICK (test code = MAG) NEGATIVE NEGATIVE UA LEUKOCYTE ESTERASE DIPSTICK (test code = LEUU) NEGATIVE NEGA TIVE UA WBC (test code = WBCU) 0-3 WBC/HPF 0-3 UA RBC (test code = RBCU) >50 RBC/HPF 0-3 A UA BACTERIA (test code = BACU) TRACE /HPF NONE SEEN UA SQUAMOUS CELLS (test code = SQU) 0-5 /HPF NONE SEEN UA HYALINE CAST (test code = HYALU) 0-2 /LPF NONE SEEN UA MUCUS (test code = MUCU) 1+ /LPF NONE SEEN UR HCG [id number] 21:16:00* Test Item Value Reference Range Interpretation Comments UR HCG QUAL (test code = HCGQLU) NEGATIVE NEGATIVE CBC W/AUTO [id number] 21:14:00* Test Item Value Reference Range Interpretation Comments WHITE BLOOD CELL (test code = WBC) 8.11 x10 3/uL 4.5-11.0 N RED BLOOD CELL (test code = RBC) 4.59 x10 6/uL 3.54-5.02 N HEMOGLOBIN (test code = HGB) 14.1 g/dL 11.0-15.0 N HEMATOCRIT (test code = HCT) 41.7 % 33.0-45.0 N MEAN CELL VOLUME (test code = MCV) 90.8 fL 81.0-99.0 N MEAN CELL HGB (test code = MCH) 30.7 pg 27.0-33.0 N MEAN CELL HGB CONCETRATION (test code = MCHC) 33.8 g/dL 33.0-37. 0 N RED CELL DISTRIBUTION WIDTH CV (test code = RDW) 11.9 % 11.5- 14.5 N RED CELL DISTRIBUTION WIDTH SD (test code = RDW-SD) 39.6 fL 37 .0-54.0 N PLATELET COUNT (test code = PLT) 321 x10 3/uL 150-400 N MEAN PLATELET VOLUME (test code = MPV) 10.5 fL 7.0-9.0 H NEUTROPHIL % (test code = NT%) 57.7 % 56.0-77.0 N IMMATURE GRANULOCYTE % (test code = IG%) 0.2 % 0.0-2.0 N LYMPHOCYTE % (test code = LY%) 32.2 % 14.0-32.0 H MONOCYTE % (test code = MO%) 7.9 % 4.8-9.0 N EOSINOPHIL % (test code = EO%) 1.4 % 0.3-3.7 N BASOPHIL % (test code = BA%) 0.6 % 0.0-2.0 N NUCLEATED RBC % (test code = NRBC%) 0.0 % 0-0 N NEUTROPHIL # (test code = NT#) 4.68 x10 3/uL 2.0-7.6 N IMMATURE GRANULOCYTE # (test code = IG#) 0.02 x10 3/uL 0.00-0.03 N LYMPHOCYTE # (test code = LY#) 2.61 x10 3/uL 1.0-3.8 N MONOCYTE # (test code = MO#) 0.64 x10 3/uL 0.1-0.8 N EOSINOPHIL # (test code = EO#) 0.11 x10 3/uL 0.0-0.2 N BASOPHIL # (test code = BA#) 0.05 x10 3/uL 0.0-0.2 N NUCLEATED RBC # (test code = NRBC#) 0.00 x10 3/uL 0.0-0.1 N MANUAL DIFF REQUIRED (test code = MDIFF) NO [id number] 14:29:00 RUN DATE: 03/07/18 [employer] [facility] PAGE 1 RUN TIME: 1429 Specimen Inqui ry RUN USER: INTERFACE PATIENT: CAROLINE SONG ACCT #: [id number] [facility] #: [id number] AGE/SX: ROOM: [age] RE03/04/18REG DR: Diego Griggs MD : 95 BED: A DIS: 03/05/18 STATUS: DIS Michael TLOC: SPEC #: [id number] RECD: 03/04/18 STATUS: SOUT REQ #: [id number] KAM: 03/04/[address] [facility] [address]: Diego Griggs MD ENTERED: 03/04/18 SP TYPE: UTERUS OTHR DR: Germán Munoz od, DO ORDERED: GROSS COPIES TO: Diego Girggs MD [address] [facility] [address] [place] [address] Germán Arreguin DO [address] [place] [address] MARKERS: ABNORMAL TISSUE, UTER US PROCEDURES: GROSS (03/07/18-135) TISSUES: UTERUS, NOS - CERVIX, LE FT [...] CONTINUED ON NEXT PAGE RUN DATE: 03/07/18 [facility] P AGE 2 RUN TIME: 1429 Specimen Inquiry RUN USER: INTERFACE SPEC #: [id number] PATIENT: CAROLINE SONG #[id number] (Continued) MACROSCOPIC The specimen is received in [...] beneath intact lining. GROSS PERFOR MED AT [facility] [address] [facility] [place] [address] (P)[phone] MICROSCOPIC MICROSCOPIC PERFORMED AT [facility] All of the stains, including any controls performed, stain appropriately. [facility] [address] [place] [address] CONTINUED ON NEXT PAGE ----- -------RUN DATE: 03/07/18 [facility] PAGE 3 RUN TIME: 1429 Specimen Inquiry RUN USER: INTERFACE SPEC #: [id number] PATIENT: CAROLINE SONG #[id number] (Continued) MICROSCOPIC (Continued) (P)[phone] PERFORMING SITE Diagnosis perfor med at: [facility], [place] [address] [facility] [place] [id number] Signed SIGNATURE ON FILE Nasima Penny 03/07/18 1429 END OF REPORT
[2020-03-02] MEDS ORDERED: MORPHINE SULFATE INJ 4 MG/ML INJ 1ML IV STA (22:07)
[2020-03-02 22:55] VITALS: BP 124/74
== END 2020-03-02 22:59 | disposition home or self-care (01) ==
LOC: ER 21:50
DX: N12 Tubulo-interstitial nephritis, not specified as acute or chronic (principal); N20.0 Calculus of kidney; R11.2 Nausea with vomiting, unspecified; K76.0 Fatty (change of) liver, not elsewhere classified; F41.9 Anxiety disorder, unspecified; F32.9 Major depressive disorder, single episode, unspecified
CPT/HCPCS: 36415; 74176; 80053; 81001; 81025; 85025; 99284; J0696; J1885; J2270; J2405; J7030

== ENCOUNTER 2020-05-07 11:08 | Emergency (ER) | payer OTHER ==
[~2020-05-07] VITALS: Ht 162.6 cm; Wt 76.2 kg
[2020-05-07 12:21] LABS: BASOPHILS % 0.4 % (0.0-1.0); EOSINOPHILS # (AUTO) 0.1 (0.0-0.4); EOSINOPHILS % 1.3 % (0.0-6.0); HEMATOCRIT 40.6 % (34.2-44.1); HEMOGLOBIN 13.8 g/dL (12.0-16.0); LYMPHOCYTES # (AUTO) 1.5 (1.0-3.2); LYMPHOCYTES % 30.6 % (18.0-39.1); MEAN CORPUSCULAR HEMOGLOBIN 30.9 pg (28-32); MEAN CORPUSCULAR VOLUME 90.8 fL (81-99); MONOCYTES # (AUTO) 0.3 (0.2-0.8); MONOCYTES % 7.1 % (4.4-11.3); NEUTROPHILS # (AUTO) 2.9 (2.1-6.9); NEUTROPHILS % 60.2 % (38.7-80.0); PLATELET COUNT 240 x10e3/uL (140-360); RED BLOOD COUNT 4.47 x10e6/uL (3.6-5.1); RED CELL DISTRIBUTION WIDTH 11.9 % (11.7-14.4)
[2020-05-07 12:34] LABS: ALANINE AMINOTRANSFERASE 77 IU/L (0-55); ALBUMIN 4.2 g/dL (3.5-5.0); ALBUMIN/GLOBULIN RATIO 1.3 (0.8-2.0); ALKALINE PHOSPHATASE 82 IU/L (40-150); ANION GAP 10.8 mmol/L (8-16); BLOOD UREA NITROGEN 12 mg/dL (7-26); BUN/CREATININE RATIO 14 (6-25); CALCIUM 9.3 mg/dL (8.4-10.2); CARBON DIOXIDE 27 mmol/L (22-29); CHLORIDE 108 mmol/L (98-107); CREATININE, SERUM 0.84 mg/dL (0.57-1.11); EST GLOMERULAR FILTRATION RATE > 60 ML/MIN (60-); GLUCOSE 101 mg/dL (74-118); POTASSIUM 3.8 mmol/L (3.5-5.1); SODIUM 142 mmol/L (136-145)
[2020-05-07 13:28] LABS: CLARITY,URINE SL CLOUDY (CLEAR); COLOR,URINE YELLOW (YELLOW); KETONES,URINE NEGATIVE (NEGATIVE); LEUKOCYTE ESTERASE ,URINE TRACE (NEGATIVE); NITRITE,URINE NEGATIVE (NEGATIVE); PROTEIN,URINE DIPSTICK NEGATIVE (NEGATIVE); URINE UROBILINOGEN 0.2 mg/dL (0.2 - 1)
[2020-05-07 13:37] LABS: BACTERIA,URINE FEW /HPF; EPITHELIAL CELLS,URINE MODERATE /LPF
[2020-05-07] MEDS ORDERED: SODIUM CHLORIDE 0.9% 50ML 50 ML ONE (13:39)
[2020-05-07] MEDS ORDERED: IOPAMIDOL 370 MG/ML 200 ML INFUS..BTL INJ ONE (13:40)
[2020-05-07] MEDS ORDERED: ONDANSETRON HCL INJ 2MG/ML 2ML 2 MG/ML VIAL IV STA (13:58)
[2020-05-07] MEDS ORDERED: KETOROLAC TROMETHAMINE 30 MG/ML VIAL IV STA (13:58)
[2020-05-07] MEDS ORDERED: SODIUM CHLORIDE 0.9% 1000ML 1,000 ML IV SCH (14:00)
[2020-05-07] MEDS ORDERED: ULTRAM50 MG PO (15:15)
[2020-05-07] MEDS ORDERED: KEFLEX500 MG PO (15:15)
[2020-05-07 15:32] VITALS: BP 128/74
[2020-05-07 15:46] LABS: AMPHETAMINES SCREEN,URINE NEGATIVE (NEGATIVE); BENZODIAZEPINES SCREEN,URINE NEGATIVE (NEGATIVE); PHENCYCLIDINE SCREEN,URINE NEGATIVE (NEGATIVE)
== END 2020-05-07 15:40 | disposition home or self-care (01) ==
LOC: ER 11:15
DX: N20.0 Calculus of kidney (principal); M54.5 Low back pain; R30.0 Dysuria; R11.2 Nausea with vomiting, unspecified; K76.9 Liver disease, unspecified; F41.9 Anxiety disorder, unspecified; F32.9 Major depressive disorder, single episode, unspecified; K21.9 Gastro-esophageal reflux disease without esophagitis
CPT/HCPCS: 36415; 74177; 80053; 80307; 81001; 84702; 85025; 99283; J1885; J2405; J7030; Q9967

== ENCOUNTER 2021-02-02 20:52 | Emergency (ER) | payer OTHER ==
[~2021-02-02] VITALS: Ht 162.6 cm; Wt 76.2 kg
[~2021-02-02 20:52] MED LIST: KEFLEX500 MG PO; ULTRAM50 MG PO
== END 2021-02-02 22:54 | disposition home or self-care (01) ==
LOC: ER 21:07
DX: U07.1 COVID-19 (principal)
CPT/HCPCS: 99283

== ENCOUNTER 2024-02-28 07:00 | Emergency (ER) | payer OTHER ==
[~2024-02-28] VITALS: Ht 162.6 cm; Wt 81.6 kg
[~2024-02-28 07:00] MED LIST changes: +AUGMENTIN 500-1 EACH PO; +PROVENTIL HFA6.7 GM INH; +ULTRAM 50MG50 MG PO
[2024-02-28 07:10] VITALS: PULSE 50; RESP 17; TEMP 98.2
[2024-02-28] MEDS ORDERED: KETOROLAC TROMETHAMINE 30 MG/ML VIAL IV STA (07:21)
[2024-02-28] MEDS ORDERED: ONDANSETRON HCL INJ 2MG/ML 2ML 2 MG/ML VIAL IV STA (07:21)
[2024-02-28 08:03] LABS: BASOPHILS % 0.4 % (0.0-1.0); EOSINOPHILS # (AUTO) 0.1 (0.0-0.4); EOSINOPHILS % 2.6 % (0.0-6.0); HEMATOCRIT 30.3 % (34.2-44.1); LYMPHOCYTES # (AUTO) 1.9 (1.0-3.2); LYMPHOCYTES % 36.9 % (18.0-39.1); MEAN CORPUSCULAR HEMOGLOBIN 31.6 pg (28-32); MEAN CORPUSCULAR VOLUME 95.9 fL (81-99); MONOCYTES # (AUTO) 0.4 (0.2-0.8); MONOCYTES % 7.9 % (4.4-11.3); NEUTROPHILS # (AUTO) 2.6 (2.1-6.9); PLATELET COUNT 203 x10e3/uL (140-360); RED BLOOD COUNT 3.16 x10e6/uL (3.6-5.1); RED CELL DISTRIBUTION WIDTH 12.6 % (11.7-14.4); WHITE BLOOD COUNT 5.04 x10e3/uL (4.8-10.8)
[2024-02-28 08:17] LABS: BACTERIA,URINE FEW /HPF; BILIRUBIN,URINE NEGATIVE (NEGATIVE); CLARITY,URINE SL CLOUDY (CLEAR); EPITHELIAL CELLS,URINE FEW /LPF; GLUCOSE, URINE NEGATIVE (NEGATIVE); KETONES,URINE NEGATIVE (NEGATIVE); LEUKOCYTE ESTERASE ,URINE SMALL (NEGATIVE); NITRITE,URINE NEGATIVE (NEGATIVE); PH,URINE 6 (5 - 7); PROTEIN,URINE DIPSTICK >=300 (NEGATIVE); RBC,URINE >50 /HPF (0-5); URINE UROBILINOGEN 0.2 mg/dL (0.2 - 1); WBC,URINE (MAN) 21-50 /HPF (0-5)
[2024-02-28 08:18] LABS: COLOR,URINE PINK (YELLOW)
[2024-02-28 08:25] LABS: ALBUMIN 3.8 g/dL (3.5-5.0); ALBUMIN/GLOBULIN RATIO 1.3 (0.8-2.0); ANION GAP 11.8 mmol/L (8-16); BILIRUBIN,TOTAL 0.2 mg/dL (0.2-1.2); CALCIUM 8.6 mg/dL (8.4-10.2); CREATININE, SERUM 0.86 mg/dL (0.57-1.11); POTASSIUM 3.8 mmol/L (3.5-5.1); TOTAL PROTEIN 6.8 g/dL (6.5-8.1)
[2024-02-28] MEDS: FENTANYL CITRATE/PF 100MCG/2 ML INJ IV PRN (08:57)
[2024-02-28] MEDS ORDERED: ACETAMINOPHEN-1 EAC4 PO (09:42)
[2024-02-28] MEDS ORDERED: CEFDINIR300 MG PO (09:45)
[2024-02-28 10:23] VITALS: BP 124/76; PULSE 81; RESP 17; O2SAT 100
== END 2024-02-28 10:27 | disposition home or self-care (01) ==
LOC: ER 07:10
DX: R31.9 Hematuria, unspecified (principal); N13.2 Hydronephrosis with renal and ureteral calculous obstruction; K21.9 Gastro-esophageal reflux disease without esophagitis; F41.9 Anxiety disorder, unspecified; F32.A Depression, unspecified; F17.210 Nicotine dependence, cigarettes, uncomplicated
CPT/HCPCS: 36415; 74176; 80053; 81001; 84702; 85025; 99284; J3010